=== PATIENT | male | born 1960 | race Caucasian/White ===

== ENCOUNTER 2020-07-16 18:16 | Emergency (ER) | payer MEDICAID, SELFPAY ==
[2020-07-16] VITALS (7 sets, daily range): BP systolic 158–184; BP diastolic 95–111; PULSE 60–73; RESP 16–18; TEMP 36.8; O2SAT 94–98; BMI 21.7
--- NOTE | 2020-07-16 18:18 | HMH.EDGENADL ---
ED Disposition Clinical Impression: Altered mental status Qualifiers: Altered mental status type: disorientation Qualified Code(s): R41.0 - Disorientation, unspecified Disposition: Still a Patient Condition on Discharge: Good Referrals: Caitlyn Perera MD [Primary Care Provider] - - Critical Care Critical Care Time: No Attestation: On , the high probability of a clinically significant, sudden or life threatening deterioration of the following system(s) required my full and direct attention, intervention and personal management. The time I documented below is in addition to time spent performing reported procedures but includes the following listed in this critical care notation. Medical Decision Making - Medical Records Medical records reviewed: Yes: I reviewed the patient's medical records. - Tigre Inquiry Pt receiving controlled substance: No Vital Signs: 07/16/20 18:25 07/16/20 18:31 Temperature 98.3 F Temperature Source Oral Pulse Rate [Radial] 73 70 Respiratory Rate 18 18 Blood Pressure [Right Arm] 174/102 H 158/95 H Blood Pressure Mean [Right Arm] 126 116 Blood Pressure Source [Right Arm] Automatic Cuff Blood Pressure Position [Right Arm] Sitting Sitting 02 Sat by Pulse Oximetry 98 94 L Oxygen Delivery Method Room Air - Lab Data Lab Results 07/16/20 18:34: WBC 10.4, RBC 4.98, Hgb 16.3, Hct 48.8, MCV 98.0 H, MCH 32.8 H, MCHC 33.5, RDW 13.9, Plt Count 243, MPV 7.5, Neut % (Auto) 61.9, Lymph % (Auto) 25.4, [place] % (Auto) 9.4 H, Eos % (Auto) 2.4, Baso % (Auto) 0.9, Neut # (Auto) 6.4, Lymph # (Auto) 2.6, [place] # (Auto) 1.0, Eos # (Auto) 0.2, Baso # (Auto) 0.1 07/16/20 18:37: Sodium 134 L, Potassium 3.7, Chloride 101, Carbon Dioxide 28, Anion Gap 8.7, BUN 16, Creatinine 1.10, Estimated Creat Clear 72, Estimated GFR 68, Est GFR ( Amer) 82, Glucose 116 H, Calcium 9.2, Total Bilirubin 0.4, AST 18, ALT 11 L, Alkaline Phosphatase 65, Troponin I < 0.01, Total Protein 7.2, Albumin 4.0, Globulin 3.2, Albumin/Globulin Ratio 1.3, Salicylates < 1.0 L, Acetaminophen < 10 L 07/16/20 18:37: Ammonia 27 07/16/20 18:37: Magnesium 2.0 Result diagrams: 07/16/20 18:34 07/16/20 18:37 Orders (Tests/Meds): ORDERS Category Date Time Status CT angio head Stat Cat Scan 07/16/20 19:[address] angio neck Stat Cat Scan 07/16/20 19:[address] head/brain wo con Stat Cat Scan 07/16/20 18:27 Taken Chest XR -- portable [XR chest portable] Stat Exams 07/16/20 18:36 Taken Drug Screen,Urine Stat Lab 07/16/20 18:35 Ordered Troponin I Q3H Lab 07/16/20 21:45 Ordered Troponin I Q3H Lab 07/17/20 00:45 Ordered Urinalysis and Microscopic Stat Lab 07/16/20 18:35 Ordered - ECG Data Tracing #1 I reviewed this ECG and interpreted as documented below: EKG demonstrates normal sinus rhythm at a normal rate; no acute ST elevation/depression Medical Decision Narrative: Patient presents to the emergency department with altered mental status over the past 6 days. He has no focal neurologic deficits, cranial nerve deficits, asymmetrical weakness, or other findings on examination. He is alert and oriented x3 but states he simply is just not been himself over the past several days. I am concerned for acidosis versus electrolyte disturbance versus infectious process versus atypical ischemia versus uremic encephalopathy versus hepatic encephalopathy versus acute intracranial abnormality versus Wernicke-Korsakoff syndrome. At this time, patient does have history of heavy alcohol abuse so an ammonia level will be obtained to ensure no hepatic encephalopathy. He has not had any alcohol in the past 5 or 6 days so if he were to have alcohol withdrawal you think it would have happened by now. CT scan will be obtained to ensure no acute intracranial abnormality., Again no focal neurologic deficits on exam. Other basic lab work we obtained to ensure no hematologic or metabolic derangement. Blood glucose 113 mg/dL. U
--- NOTE | 2020-07-16 18:27 | CT_ITS ---
PROCEDURE: CT HEAD/BRAIN WO CON CLINICAL INDICATION: altered mental status Altered mental status, altered level of consciousness, confusion, disorientation, memory loss COMPARISON: No exams were available for comparison TECHNIQUE: Axial images obtained. All CT scans at the facility use one or more dose reduction, viz: automated exposure control, ma/kV adjustment per patient size (including targeted exams where dose is matched to indication, i.e. head), or iterative reconstruction technique. FINDINGS: No midline shift, mass effect, intracranial hemorrhage, hydrocephalus, or extra-axial fluid collection is evident. There are scattered areas hypoattenuation of the periventricular white matter consistent with microangiopathic changes. Ill-defined decreased density is present in the genu of the left internal capsule and could be due to subacute lacunar infarction. Encephalomalacia changes present in the left parietal lobe. The calvarium has an unremarkable appearance. No mastoid effusion. Partial opacification noted of the ethmoid sinuses IMPRESSION: 1. No acute intracranial hemorrhage. 2. Possible subacute infarction left internal capsule with periventricular ischemic gliotic changes. MRI may provide further evaluation. 3. Sinus disease Dictated by: Missael Vidales MD 07/17/2020 10:00 Missael Vidales MD in [facility] 07/17/2020 10:00
--- NOTE | 2020-07-16 18:33 | ECG_ITS ---
APPROVED REPORT Exam: Resting ECG HR:71 bpm ECG Measurements Heart Rate 71 AXES NM 174 P 67 QRSd 96 QRS 37 QT 400 T 65 QTc 434 Conclusion Normal sinus rhythm Normal ECG Electronically signed by : Ugo Parry, 07/17/2020 06:36:05
--- NOTE | 2020-07-16 18:36 | XR_ITS ---
PROCEDURE: XR CHEST PORTABLE CLINICAL HISTORY: altered mental status Altered mental status, altered level of consciousness, confusion, disorientation COMPARISON: No exams were available for comparison FINDINGS: There is borderline cardiomegaly without failure. The lungs are clear without infiltrates, suspicious nodules, or pleural effusions. No acute bony abnormalities. IMPRESSION: No acute findings. Dictated by: Missael Vidales MD 07/17/2020 08:26 Missael Vidales MD in [facility] 07/17/2020 08:26
--- NOTE | 2020-07-16 18:39 | PC.NURSE ---
FSBS 113 mg/dl
[2020-07-16 18:42] LABS: Basophils # 0.1 K/mm3 (0-0.2); Basophils % 0.9 % (0.1-2.0); Eosinophils # 0.2 K/mm3 (0.0-0.4); Eosinophils % 2.4 % (0.1-12.0); Hematocrit 48.8 % (42.0-52.0); Hemoglobin 16.3 g/dL (14.1-18.0); Lymphocytes # 2.6 K/mm3 (0.7-4.5); Lymphocytes % 25.4 % (10-50); Mean Corpuscular HGB Conc 33.5 g/dL (31.8-35.4); Mean Corpuscular Hemoglobin 32.8 pg (27.0-31.2); Mean Platelet Volume 7.5 fl (7.4-10.4); Monocytes % 9.4 % (1.7-9.3); Neutrophils # 6.4 K/mm3 (1.8-7.8); Neutrophils % 61.9 % (37.0-80.0); Platelet Count 243 K/mm3 (142-424); Red Blood Count 4.98 M/mm3 (4.60-6.20); Red Cell Distribution Width 13.9 % (11.5-17.5); White Blood Count 10.4 K/mm3 (4.8-10.8)
[2020-07-16 19:06] LABS: Alanine Aminotransferase 11 U/L (12-78); Albumin/Globulin Ratio 1.3 (1.1-1.8); Alkaline Phosphatase 65 U/L (38-126); Anion Gap 8.7 mEq/L (5-15); Aspartate Amino Transferase 18 U/L (17-59); Bilirubin,Total 0.4 mg/dl (0.2-1.3); Blood Urea Nitrogen 16 mg/dl (9-20); Calcium 9.2 mg/dl (8.4-10.2); Carbon Dioxide 28 mmol/L (22.0-30.0); Chloride 101 mmol/L (98-107); Creatinine Clearance Estimated 72 mL/min (50-200); Estimated Glomerular Filt Rate 68 ml/min (>60); GFR (African American) 82 ML/MIN (>60); Globulin 3.2 g/dL (1.3-3.2); Glucose 116 mg/dl (74-100); Potassium 3.7 mmoL/L (3.5-5.1); Sodium 134 mmol/L (136-145); Total Protein,Serum 7.2 g/dl (6.3-8.2)
[2020-07-16 19:09] LABS: Acetaminophen < 10 ug/ml (10-30); Salicylate < 1.0 mg/dL (2.0-20.0)
[2020-07-16 19:10] LABS: Ammonia 27 umol/L (9-30)
[2020-07-16 19:21] LABS: Troponin I < 0.01 ng/ml (0.00-0.034)
--- NOTE | 2020-07-16 19:40 | PC.NURSE ---
on the phone with TANIA
--- NOTE | 2020-07-16 19:42 | CT_ITS ---
Procedure: CT ANGIO NECK CTA HEAD CLINICAL HISTORY: altered mental status Altered mental status, memory loss, cognitive decline, Altered mental status, altered level of consciousness, confusion, disorientation COMPARISON: CT CT ANGIO HEAD from 07/16/2020 TECHNIQUE: IV Contrast: 100ml Isovue 370 Axial images obtained with sagittal and coronal reformats. All CT scans at the facility use one or more dose reduction, viz: automated exposure control, ma/kV adjustment per patient size (including targeted exams where dose is matched to indication, i.e. head), or iterative reconstruction technique. FINDINGS: CTA neck: The the aortic arch and great vessels have an unremarkable appearance with no stenosis or occlusion. Right common carotid is unremarkable. There is some soft plaque present in the carotid bulb on the right with small amount of calcific plaque in the proximal right ICA without significant stenosis. Left common carotid is unremarkable. There is calcific plaque in the bulb on the left. There is occlusion of the left internal carotid artery 2 cm distal to the bifurcation. This occlusion extends to the clinoid portion of the left ICA with the ICA there is reconstituted.. There is some irregularity of the carotid bulb. There is 60-70 percent stenosis of the ostium of the right vertebral artery. The left vertebral artery has an unremarkable appearance. CTA head: There is complete occlusion of the left internal carotid artery beginning in the lower cervical portion. The internal carotid is occluded throughout the neck and skull base with reconstitution in the clinoid portion on the left. No aneurysm, AVM, or other occlusive changes are evident. No enhancing lesions are apparent. No obvious dural sinus thrombosis. IMPRESSION: 1. Occlusion of the left internal carotid artery extending throughout the neck and skull base with reconstitution at the ophthalmic portion of the left ICA. There is some irregularity the carotid bulb. The occlusion could be related to dissection. This however is uncertain. 2. No other significant anomalies appear. Dictated by: Missael Vidales MD 07/17/2020 10:29 Missael Vidales MD in [facility] 07/17/2020 10:29
--- NOTE | 2020-07-16 19:48 | PC.NURSE ---
called radiology and alerted to cta head and neck orders. requested disk of all scans at this time
--- NOTE | 2020-07-16 19:58 | PC.NURSE ---
pt to RAD for CTA
--- NOTE | 2020-07-16 20:20 | PC.NURSE ---
pt back from RAD
--- NOTE | 2020-07-16 20:26 | PC.NURSE ---
MD at bedside speaking with pt and family
--- NOTE | 2020-07-16 21:09 | PC.NURSE ---
speaking with Biju
--- NOTE | 2020-07-16 21:30 | PC.NURSE ---
speaking with [facility]
--- NOTE | 2020-07-16 21:43 | PC.NURSE ---
pt refuses ambulance transport.
[2020-07-18 05:35] LABS: POC Glucose,Bedside 113 (70-110)
== END 2020-07-16 21:59 | disposition short-term general hospital (02) ==
PROVIDERS: Emergency Provider Emergency Medicine; PCP Family Medicine
DX: I65.22 Occlusion and stenosis of left carotid artery (principal); F10.10 Alcohol abuse, uncomplicated; F17.210 Nicotine dependence, cigarettes, uncomplicated
CPT/HCPCS: 70450; 70496; 70498; 71045; 80053; 80329; 82140; 82962; 83735; 84484; 85025; 93005; 99284; Q9967

== ENCOUNTER 2023-05-28 09:49 | Emergency (ER) | payer OTHER, SELFPAY ==
[2023-05-28 10:30] VITALS: BP 154/85; PULSE 71; RESP 22; TEMP 36.7; O2SAT 97; BMI 26.4
--- NOTE | 2023-05-28 10:32 | EXP.UTC ---
Discharge Plan Disposition Patient Disposition: Home, Self-Care Condition: Good Prescriptions Prescriptions: New omeprazole 40 mg capsule,delayed release(DR/EC) 40 mg PO DAILY Qty: 30 2RF Referrals Follow up/Referrals: Caitlyn Perera MD [Primary Care Provider] - See instructions Vishal Chavez II, MD [Referring] - See instructions Activity Restrictions/Add. Instructions Additional Instructions/Restrictions: Drink plenty of fluids with your meals. Eat soft foods that are easier to swallow. I put in a referral to the GI specialist (Dr. Chavez). Please call his office and get an appointment to be evaluated there. Take the medications as directed. Follow up with your regular doctor. GO TO THE ER FOR ANY WORSENING SYMPTOMS Clinical Impressions Clinical Impression: Dysphagia Instructions Patient Instructions: Esophageal Dysphagia, Omeprazole, DI for Esophageal Dysphagia Discharge ED Provider: Vidal Oliveira [facility] General Stated complaint: something feels stuck when eating Time Seen by Provider: 05/28/23 10:32 History of Present Illness Provider Complaint: He states that over the past 1 month he has had trouble swallowing food at times. He states that it feels like it gets stuck right before it goes into his stomach. He denies that he is having these symptoms at this time. Related Data Previous Rx's Medication Instructions Recorded omeprazole 40 mg capsule,delayed 40 mg PO DAILY #30 caps 05/28/23 release Allergies Allergy/AdvReac Type Severity Reaction Status Date / Time No Known Allergies Allergy Verified 07/16/20 18:30 [facility] Disclaimer: The information contained in this section may have been updated after the patient was seen, as this information can be updated by other users. Medical History (Updated 05/28/23 @ 11:21 by Vidal Oliveira APRN) History of stroke Social History Smoking Status: Current every day smoker tobacco type: cigarettes packs per day: 1 second hand exposure: Yes alcohol intake: current current occupational status: employed Travel in the last 8 weeks: None ROS Obtained: Yes All systems reviewed & no additional complaints except as documented Constitutional Constitutional: Denies chills and Denies fever(s) Eyes Eyes: Denies eye discharge ENT Ears, Nose, Mouth, and Throat: Denies dizziness, Denies otalgia and Denies sore throat Cardiovascular Cardiovascular: Denies chest pain Respiratory Respiratory: Denies shortness of breath, Denies chest congestion, Denies cough, Denies stridor and Denies wheezing Gastrointestinal Gastrointestingal: Denies nausea or vomiting Musculoskeletal Musculoskeletal: Reports system reviewed and no additional complaints, except as documented and Denies arthralgias Integumentary/Breasts Skin/Breast: Denies rash Neurologic Neurologic: Denies dizziness and Denies paresthesias Allergic/Immunologic Allergic/Immunologic: Denies wheezing Physical Exam General General appearance: alert and in no apparent distress Head Head exam: atraumatic, normocephalic and normal inspection Eye Eye exam: Present normal appearance, PERRL and EOMI ENT ENT exam: Present normal exam, normal oropharynx, mucous membranes moist, TM's normal bilaterally and normal external ear exam Neck Neck exam: Present normal inspection, full ROM and trachea midline; Absent meningismus or lymphadenopathy Chest Chest inspection: Present normal inspection and symmetric chest wall rise; Absent tenderness Respiratory Respiratory exam: Present normal lung sounds bilaterally; Absent respiratory distress Cardiovascular Cardiovascular exam: Present regular rate and normal rhythm; Absent JVD Abdominal Exam Abdominal exam: Present soft and normal bowel sounds; Absent distention, tenderness or guarding Extremities Exam Extremities exam: Present normal inspection, full ROM and normal capillary refill; Absent calf tenderness Back Exam Back exam: Present n
[2023-05-28 11:22] VITALS: BP 154/85; PULSE 71; RESP 22; TEMP 36.7; O2SAT 97
== END 2023-05-28 11:25 | disposition home or self-care (01) ==
PROVIDERS: Emergency Provider Nurse Practitioner Family; PCP Family Medicine
DX: R13.14 Dysphagia, pharyngoesophageal phase (principal); F17.210 Nicotine dependence, cigarettes, uncomplicated; Z86.73 Personal history of transient ischemic attack (TIA), and cerebral infarction without residual deficits
CPT/HCPCS: 99204; 99212; G0463

== ENCOUNTER 2024-07-07 13:45 | Outpatient (CLI) | payer MEDICARE, OTHER, SELFPAY ==
[2024-07-07 13:35] LABS: Basophils # 0.1 K/mm3 (0-0.2); Basophils % 1.3 % (0.1-2.0); Eosinophils # 0.2 K/mm3 (0.0-0.4); Eosinophils % 2.5 % (0.1-12.0); Hematocrit 50.3 % (42.0-52.0); Hemoglobin 16.8 g/dL (14.1-18.0); Lymphocytes # 1.9 K/mm3 (0.7-4.5); Lymphocytes % 28.3 % (10-50); Mean Corpuscular HGB Conc 33.3 g/dL (31.8-35.4); Mean Corpuscular Hemoglobin 33.3 pg (27.0-31.2); Mean Platelet Volume 7.9 fl (7.4-10.4); Monocytes # 0.6 K/mm3 (0.1-1.0); Monocytes % 8.4 % (1.7-9.3); Neutrophils # 4.1 K/mm3 (1.8-7.8); Neutrophils % 59.6 % (37.0-80.0); Platelet Count 250 K/mm3 (142-424); Red Blood Count 5.03 M/mm3 (4.60-6.20); Red Cell Distribution Width 14.3 % (11.5-17.5); White Blood Count 6.8 K/mm3 (4.8-10.8)
[2024-07-07 14:10] LABS: Alanine Aminotransferase 17 U/L (12-78); Albumin Level 3.9 g/dl (3.5-5.0); Albumin/Globulin Ratio 1.4 (1.1-1.8); Alkaline Phosphatase 87 U/L (38-126); Anion Gap 9.6 mEq/L (5-15); Aspartate Amino Transferase 28 U/L (17-59); Bilirubin,Total 0.7 mg/dl (0.2-1.3); Blood Urea Nitrogen 12 mg/dl (9-20); Calcium 9.1 mg/dl (8.4-10.2); Carbon Dioxide 28 mmol/L (22.0-30.0); Chloride 104 mmol/L (98-107); Chol/HDL Ratio 4.8 (1-3.5); Cholesterol 260 mg/dl (140-200); Estimated Glomerular Filt Rate 85 ml/min (>60); GFR (African American) 102 ML/MIN (>60); Globulin 2.8 g/dL (1.3-3.2); Glucose 103 mg/dl (74-100); HDL Cholesterol 54 mg/dl (40-60); Potassium 4.6 mmoL/L (3.5-5.1); Sodium 137 mmol/L (136-145); Total Protein,Serum 6.7 g/dl (6.3-8.2); Triglycerides 81 mg/dl (30-150); VLDL Cholesterol 16 mg/dL (0-40)
[2024-07-07 14:22] LABS: Direct LDL Cholesterol 197.19 mg/dL (100-129)
[2024-07-07 14:30] LABS: 25-OH Vitamin D, Total 23.6 ng/mL (30-100)
[2024-07-07 14:40] LABS: Thyroid Stimulating Hormone 1.32 uIU/mL (0.465-4.68)
[2024-07-07 15:30] LABS: HIV (1&2) Antibody Rapid NONREACTIVE (NONREACTIVE)
[2024-07-07 15:49] LABS: Free T4 (Free Thyroxine) 1.07 ng/dl (0.78-2.19)
[2024-07-07 19:26] LABS: Hemoglobin A1C 5.2 % (4.0-6.0)
[2024-07-08 08:42] LABS: HCV Ab Non Reactive (Non Reactive)
== END 2024-07-07 23:59 | disposition home or self-care (01) ==
LOC: LAB.DROPOF 13:46
PROVIDERS: PCP Internal Medicine; Visit Provider Internal Medicine
DX: Z00.00 Encounter for general adult medical examination without abnormal findings (principal); E78.5 Hyperlipidemia, unspecified; I10 Essential (primary) hypertension; I63.239 Cerebral infarction due to unspecified occlusion or stenosis of unspecified carotid artery; I73.9 Peripheral vascular disease, unspecified; R13.10 Dysphagia, unspecified; F17.210 Nicotine dependence, cigarettes, uncomplicated; Z11.4 Encounter for screening for human immunodeficiency virus [HIV]; Z13.21 Encounter for screening for nutritional disorder; Z13.29 Encounter for screening for other suspected endocrine disorder; Z11.59 Encounter for screening for other viral diseases; Z13.1 Encounter for screening for diabetes mellitus
CPT/HCPCS: 80053; 80061; 82306; 83036; 84439; 84443; 85025; 86803; 87389

== ENCOUNTER 2024-07-15 12:43 | Outpatient (CLI) | payer MEDICARE, OTHER, SELFPAY ==
--- NOTE | 2024-07-15 12:51 | CA_ITS ---
FINAL REPORT CLINICAL HISTORY: History of CVA, smoker. Patient states [facility] told him several years ago he had blockages in his neck. COMPARISON: None FINDINGS: RIGHT CAROTID: CCA PSV -148 cm/sec ICA PSV -133 cm/sec ICA/CCA PSV ratio -1.5. Comments: Moderate to severe plaque disease is noted. LEFTCAROTID: CCA PSV -103. cm/sec There is echogenic material which fills the entire internal carotid artery on the left side, consistent with occlusion. Comments: Moderate to severe plaque disease is noted. Antegrade flow is seen within the vertebral arteries. IMPRESSION: The right internal carotid artery contains moderate to severe plaque disease, and based on the appearance, the degree of stenosis may be 50%. Echogenic material fills the entire internal carotid artery, if not a well established diagnosis, CTA could be considered to confirm. Reviewed, Interpreted and Dictated by Lilian Layton MD Transcribed by Lu Kimble Authenticated and [facility]
== END 2024-07-15 23:59 | disposition home or self-care (01) ==
LOC: RT 12:44
PROVIDERS: PCP Internal Medicine; Visit Provider Internal Medicine
DX: I65.21 Occlusion and stenosis of right carotid artery (principal); Z86.73 Personal history of transient ischemic attack (TIA), and cerebral infarction without residual deficits
CPT/HCPCS: 93880

== ENCOUNTER 2025-03-21 11:33 | Emergency (ER) | payer MEDICARE, OTHER, SELFPAY ==
[2025-03-21] VITALS (9 sets, daily range): BP systolic 98–125; BP diastolic 53–79; PULSE 48–79; RESP 19; TEMP 36.6; O2SAT 96–100; BMI 25.7
--- NOTE | 2025-03-21 11:37 | ED_ITS ---
Discharge Plan Disposition Patient Disposition: Home, Self-Care Condition: Good Prescriptions Prescriptions: No Action losartan 25 mg tablet 25 mg PO DAILY Qty: 90 2RF rosuvastatin 20 mg tablet 20 mg PO DAILY Qty: 90 3RF tadalafil [Cialis] 5 mg tablet 5 mg PO DAILY Qty: 90 3RF Referrals Follow up/Referrals: Lucho Montano DO [Primary Care Provider, Family Practice] - See instructions Activity Restrictions/Add. Instructions Additional Instructions/Restrictions: Follow-up with your oncologist as soon as possible Dr. Dudley for further evaluation of your metastatic cancer. Return to the emergency department for any new or worsening symptoms including worsening pain or vomiting. Clinical Impressions Clinical Impression: Abdominal pain Print Language Print Language: Luxembourgish Discharge ED Provider: Tamia Browne General Adult HPI General Chief complaint: PAIN Stated complaint: left side pain Time Seen by Provider: 03/21/25 11:37 History of Present Illness HPI narrative: Patient is a 64-year-old with past medical history significant for metastatic stomach cancer who follows with Dr. Dudley at [facility] diagnosed 2 years ago presents the emergency department with abdominal pain. Patient received 1 dose of IV chemotherapy followed by 2 weeks of oral chemotherapy 2 years ago however did not like the side effects of started taking cow wormer to treat his cancer instead. Patient notes that 6 months ago he had a spot on his kidney and liver that was being watched . Patient over the last week has had increased left upper abdominal pain worse whenever he lies on his left side. Patient notes increased weight gain. Denies nausea vomiting diarrhea shortness of breath or chest pain. Is a daily smoker and has a chronic cough but no hemoptysis and no worsening of his cough. Patient has never had a colonoscopy performed. Related Data Previous Rx's ?Medication ?Instructions ?Recorded losartan 25 mg tablet 25 mg PO DAILY #90 tabs 12/28 02/19 rosuvastatin 20 mg tablet 20 mg PO DAILY #90 tabs 12/28 02/19 tadalafil 5 mg tablet (Cialis) 5 mg PO DAILY #90 tabs 01/22/25 Allergies Allergy/AdvReac Type Severity Reaction Status Date / Time No Known Allergies Allergy Verified 01/22/25 14:48 [facility] Disclaimer: The information contained in this section may have been updated after the patient was seen, as this information can be updated by other users. Medical History Cancer of esophagus History of stroke Social History Smoking Status: Current every day smoker tobacco type: cigarettes packs per day: 1 second hand exposure: Yes alcohol intake: current alcohol intake frequency: 0-2 drinks per day substance use type: denies use current occupational status: retired Travel in the last 8 weeks?: None Have you lived/traveled outside [place] in past 30 days?: No Contact w/someone who lives/traveled outside US past 30 days?: No Exposure to someone with infectious disease in past 14 days?: No Do you have a fever (greater than 100.4 F or 38 C)?: No Have you tested positive for COVID-19?: No Exposed to someone with COVID-19 in past 14 days?: No Do you have a sore throat?: No Do you have a cough?: No Do you have any weakness?: No Do you have any diarrhea?: No Are you experiencing any unusual bleeding?: No Do you have any muscle aches/pain?: No Do you have any abdominal pain?: No Are you experiencing loss of taste or smell?: No Other Medical History Have you received the Flu Vaccine for this season: No Have you received the Pneumonia Vaccine: No ROS Obtained: Yes All systems reviewed & no additional complaints except as documented Physical Exam General General appearance: alert and in no apparent distress Head Head exam: atraumatic and normocephalic Eye Eye exam: Present normal appearance and PERRL ENT ENT exam: Present normal exam, normal oropharynx and mucous membranes moist Neck Neck exam: Present normal inspection Respiratory Respiratory exam: Present normal lung sounds bilaterally; Absent respiratory distress or wheezes Cardiovascular Cardiovascular exam: Present regular rate and normal rhythm Abdominal Exam Abdominal exam: Present soft and tenderness (Left upper quadrant); Absent distention or guarding Back Exam Back exam: Present normal inspection; Absent tenderness, CVA tenderness (R) or CVA tenderness (L) Neurological Exam Neurological exam: Present alert and oriented X3 Medical Decision Making Medical Records Screening: Per USPSTF and CDC recommendations, given the prevalence of disease in our region, it is our hospital?s policy to screen for HIV and viral Hepatitis for all patients aged 18 and over and those with ongoing risk factors. [place]re Inquiry Pt receiving controlled substance: No Vital Signs: 03/21/25 11:39 03/21/25 11:44 03/21/25 12:01 Temperature 97.8 F Temperature Source Oral Pulse Rate 79 54 L Pulse Rate [Left] 65 Respiratory Rate 19 Blood Pressure 125/68 113/53 L Blood Pressure [Right Arm] 125/68 Blood Pressure Mean [Right Arm] 87 Blood Pressure Source [Right Arm] Automatic Cuff Blood Pressure Position [Right Arm] Sitting 02 Sat by Pulse Oximetry 97 100 98 Oxygen Delivery Method Room Air Room Air 03/21/25 12:30 03/21/25 13:00 03/21/25 13:30 Temperature Temperature Source Pulse Rate 56 L 50 L Pulse Rate [Left] Respiratory Rate Blood Pressure 98/69 L 109/69 L 114/55 L Blood Pressure [Right Arm] Blood Pressure Mean [Right Arm] Blood Pressure Source [Right Arm] Blood Pressure Position [Right Arm] 02 Sat by Pulse Oximetry 97 99 99 Oxygen Delivery Method Room Air 03/21/25 14:00 03/21/25 14:30 03/21/25 15:18 Temperature 97.8 F Temperature Source Pulse Rate 49 L 48 L 78 Pulse Rate [Left] Respiratory Rate 19 Blood Pressure 108/64 L 109/67 L 108/79 L Blood Pressure [Right Arm] Blood Pressure Mean [Right Arm] Blood Pressure Source [Right Arm] Blood Pressure Position [Right Arm] 02 Sat by Pulse Oximetry 97 96 Oxygen Delivery Method Room Air Lab Data Lab Results 03/21/25 11:37: Urine Color Yellow, Urine Appearance Clear, Urine pH 8.5, Ur Specific [place] 1.020, Urine Protein Negative, Urine Glucose (UA) Negative, Urine Ketones Negative, Urine Blood Negative, Urine Nitrate Negative, Urine Bilirubin Negative, Urine Urobilinogen 0.2, Ur Leukocyte Esterase Negative 03/21/25 11:42: WBC 9.3, RBC 4.03 L, Hgb 13.1 L, Hct 39.1 L, MCV 97.0 H, MCH 32.5 H, MCHC 33.5, RDW 14.9, Plt Count 258, MPV 9.7, Neut % (Auto) 48.3, Lymph % (Auto) 36.5, [place] % (Auto) 11.6 H, Eos % (Auto) 2.4, Baso % (Auto) 0.9, Neut # (Auto) 4.5, Lymph # (Auto) 3.4, [place] # (Auto) 1.1 H, Eos # (Auto) 0.2, Baso # (Auto) 0.1, Sodium 139, Potassium 4.3, Chloride 109 H, Carbon Dioxide 28, Anion Gap 6.3, BUN 11, Creatinine 0.80, Estimated Creat Clear 89, Estimated GFR 97, Est GFR ( Amer) 117, Glucose 97, Calcium 8.7, Total Bilirubin 0.4, AST 27, ALT 15, Alkaline Phosphatase 81, Troponin I < 0.01, NT-Pro-B Natriuret Pep 790 H, Total Protein 6.9, Albumin 3.3 L, Globulin 3.6 H, Albumin/Globulin Ratio 0.9 L, Lipase 48 03/21/25 12:12: VBG Lactic Acid 1.2 03/21/25 11:42 03/21/25 11:42 Orders (Tests/Meds): ED MEDICATIONS Discontinued Medications Generic Name Dose Route Start Last Admin Trade Name Freq PRN Reason Stop Dose Admin Iopamidol 80 ml 03/21/25 12:48 03/21/25 12:49 Iopamidol-370 (76%);100ml Bottle IV 03/21/25 12:49 80 ml ONCE ONE Administration Sodium Chloride 10 ml 03/21/25 12:48 03/21/25 12:49 Sodium Chloride 0.9% 10ml Syr (Rad Only) IV 03/21/25 12:49 10 ml ONCE ONE Administration Sodium Chloride 50 ml 03/21/25 12:48 03/21/25 12:49 0.9 % Sodium Chloride 50 Ml Vial IV 03/21/25 12:49 50 ml ONCE ONE Administration ORDERS Category Date Time Status CT abdomen pelvis w con Stat Cat Scan 03/21/25 12:04 Completed CTA Chest [CT angio chest PE protocol] Stat Cat Scan 03/21/25 12:04 Completed Complete Blood Count Auto Diff Stat Lab 03/21/25 11:42 Completed Comprehensive Metabolic Panel Stat Lab 03/21/25 11:42 Completed Lactate Venous Stat Lab 03/21/25 12:12 Completed Lipase Stat Lab 03/21/25 11:42 Completed NT Pro Brain Natriuretic Pep. Stat Lab 03/21/25 11:42 Completed Troponin I Stat Lab 03/21/25 11:42 Completed UA/RFX Microscopic Stat Lab 03/21/25 11:37 Completed Medical Decision Narrative: In summary, this 64-year-old male presents to the emergency department today with abdominal pain. On initial evaluation patient is hemodynamically stable saturating appropriately on room air afebrile no acute distress. Differential diagnosis includes but is not limited to worsening malignancy, peptic ulcer disease, pancreatitis, leukemia lymphoma ACS, PE, pneumonia, urolithiasis, pyelonephritis. Based on these concerns, I ordered CBC CMP lipase troponin BNP UA CT PE CT abdomen pelvis with IV contrast, EKG. ECG personally interpreted demonstrates sinus bradycardia no ST elevation ST depression or T wave origins concerning for ischemia Patient offered pain control but denied at this time as patient has stable symptoms. Labs personally reviewed demonstrate hemoglobin of 13, normal creatinine normal white count, nonactionable UA CT imaging personally interpreted demonstrate free fluid within the abdomen, diffuse abdominal lymphadenopathy, no saddle PE. Radiology read concerning for diffuse metastatic disease. I discussed with patient that his free fluid is likely inflammation from worsening metastatic disease from his stomach cancer that is causing his pain. Discussed close follow-up with his oncologist Dr. Dudley. Patient tolerating p.o. at this time and pain well-controlled agreeable to discharge with outpatient follow-up with his oncologist. Recommended stopping self medicating with cow wormer . Critical Care Critical Care Time Critical Care Time: No
--- OUTSIDE RECORDS SUMMARY | 2025-03-21 11:40 | XMS_ITS | Clinical Summary ---
Author Organization [facility] Address [address] [place] [address] Care Team Providers Care Clinical Associate Name Role Phone DustyLucho draper Nathanael Primary Care Provider + Allergies No known active allergies Medications losartan (COZAAR) 25 MG tablet Take 1 tablet by mouth Daily. 08/16/2024 Active rosuvastatin (CRESTOR) 10 MG tablet Take 1 tablet by mouth Daily. 08/16/2024 Active Niacin (TRUE VITAMIN B3 PO) Take by mouth. Active Cholecalciferol 25 MCG (1000 UT) tablet Take 1 tablet by mouth Daily. Patient taking 2,000 a day Active folic acid (FOLVITE) 400 MCG tablet Take 1 tablet by mouth Daily. Active Active Problems Problem Noted Date Diagnosed Date Malignant neoplasm of lower third of esophagus 1 09/08/2022 Family History Medical History Relation Name Comments Coronary artery disease Father Pancreatic cancer Father Coronary artery disease Maternal Grandfather Breast cancer Mother Coronary artery disease Mother Heart attack Mother Hyperlipidemia Mother Hypertension Mother Relation Name Status Comments Father Maternal Grandfather Alive Mother Social History Tobacco Use Types Packs/Day Years Used Date Smoking Tobacco: Every Day Cigarettes 1 50.6 Started: 2024 Passive Smoke Exposure: Current Smokeless Tobacco: Never Tobacco Cessation:Ready to Q uit: No; Counseling Given: Yes Alcohol Use Standard Drinks/Week Comments Not Currently 0 (1 standard drink = 0.6 oz pur e alcohol) PHQ-2 Answer Date Recorded Retired PHQ-9: Brief Depression Severity Measure Score 0 08/12/2023 Sex and Gender Information Value Date Recorded Sex Assigned at Not on file Legal Sex Male 10:42 AM EST Gender Identity Not on file Sexual Orientation Not on file Last Filed Vital Signs Vital Sign Reading Time Taken Comments Blood Pressure 138/82 11/18/2024 12:52 PM EDT 13 8 Pulse 74 11/18/2024 12:52 PM EDT Temperature 36.6 C (97.9 F) 11/18/2024 12:52 PM EDT Respiratory Rate 18 08/21/2024 9:41 AM EST Oxygen Saturation 97% 11/18/2024 12:52 PM EDT Inhaled Oxygen Concentration - - Weight 89 kg (196 lb 4.8 oz) 11/18/2024 12:52 PM EDT Height 182.9 cm (6') 11/18/2024 12:52 PM EDT Body Mass Index 26.62 11/18/2024 12:52 PM EDT Plan of Treatment Upcoming Encounters Date Type Department Care Team (Late st Contact Info) Description 04/07/2025 11:00 AM EDT Appointment [facility] AT [address] [phone] 04/23/2025 10:00 AM EDT Office Visit [facility] HEMAT[facility] [address] [facility] [address] [place] [phone] Tim Dudley MD [address] [facility] [address] [place] [phone] 05/19/2025 10:00 AM EDT Appointment [facility] [address] [facility] [address] [place] [phone] 05/19/2025 12:00 PM EDT Office Visit [facility] [address] [facility] [address] [place] [phone] Haim Bingham MD [address] [facility] [address] [place] [address] Health Maintenance Due Date Last Done Comments Pneumococcal Vaccine 50+ (1 of 2 - PCV) 1977 TDAP/TD VACCINES (1 - Tdap) 1977 COLOGUARD 11/27/2003 COLON CANCER SCREENING 5 YEA R SIGMOIDOSCOPY 11/27/2003 COLONOSCOPY 11/27/2003 COLORECTAL CANCER SCREENING 11/27/2003 CT COLONOGRAPHY 11/27/2003 FECAL OCCULT BLOOD TEST 11/27/2003 FIT Testing (1 year) 11/27/2003 ZOSTER VACCINE (1 of 2) 2008 ANNUAL WELLNESS VISIT 07/03/2023 COVID-19 Vaccine ( - 2023- season) 2024 INFLUENZA VACCINE 04/28/2025 LUNG CANCER SCREENING 12/07/2025 12/07/2024 , 08/17/2024, 04/27/2024 HEPATITIS C SCREENING Completed 07/07/2024 AAA SCREEN ONCE Completed 12/07/2024, 07/30, 04/27/2024 Goals Goal Patient Goal Type Associated Problems Recent Progress Patient-Stated? Author Specialty Pharmacy General Goal General No Vilma Santamaria, [facility] Note: Clinical goal/therapeutic target: disease control, per the recent oncology clinic notes and labs. Procedures Procedure Name Priority Date/Time Associated Diagnosis Comments CT CHEST W CONTRAST Routine 12/07/2024 9 :34 AM EDT Malignant neoplasm of lower third of esophagus CT ABDOMEN PELVIS W CONTRAST Routine 12/07/2024 9:34 AM EDT Malignant neoplasm of lower third of esophagus from Last 3 Months or Most Recently Relevant to Health Maintenance Results * CT Abdomen Pelvis With Contrast (12/07/2024 9:34 AM EDT) Anatomical Region Laterality Modality Abdomen, Pelvis N/A Computed Tomogra phy 12/09/2024 11:4 9 AM EDT Impressions 12/09/2024 12:15 PM EDT Impression: Chest: No evidence of disease progression. Stable subcentimeter pulmonary nodules. Abdomen/pelvis: Increased retroperitoneal, portal and mesenteric adenopathy. No liver lesion. Stable bony findings. Electronically Signed: Mallory Faustin MD 12/09/2024 12:15 PM EDT Workstation ID: [id number] Narrative 12/09/2024 12:[address] ABDOMEN PELVIS W CONTRAST, CT CHEST W CONTRAST DIAGNOSTIC Date of Exam: 12/07/2024 9:06 AM EDT Indication: esophageal ca. Comparison: 08/17/2024. Technique: Axial CT images were obtained of the chest, abdomen and pelvis following the uneventful intravenous administration of 100 cc Isovue-300. Reconstructed coronal and sagittal images were also obtained. Automated exposure control and iterative construction methods were used. Findings: Chest: Thoracic aorta normal in caliber.. Heart is not enlarged. Coronary atherosclerotic calcifications. No pericardial effusion or pericardial thickening. Thyroid is unremarkable. No mediastinal, hilar or axillary adenopathy. No focal infiltrate or effusion in the lung donnelly. Unchanged right upper lobe pulmonary nodule series 4 image 31 measuring 7 mm and 6 mm nodule in the right lower lobe on image 56. No new or enlarging pulmonary nodules. Calcified granulomas. Central airways are patent. Abdomen/pelvis: Liver, spleen, pancreas, adrenal glands and kidneys are unremarkable without enhancing lesion. The gallbladder is present. No intra or extrahepatic biliary ductal dilatation. Scattered colonic diverticuli without evidence of diverticulitis, abscess bowel obstruction or appendicitis. Atherosclerotic calcifications of the abdominal aorta without aneurysmal dilatation. Diffuse haziness of the central mesenteric root with significant increased mesenteric adenopathy, innumerable nodules, measuring up to 12 mm short axis most of which have developed in the interim since the prior study. Para-aortic, precaval and portal adenopathy and upper abdominal lymph nodes have significantly increased; portal lymph nodes now measuring up to 17 mm short axis. For example, a left para-aortic lymph node at the level of the left renal hilum now measures 12 mm short axis, measured 6 mm in July. However, a lymph node of the infrarenal region on prior study which was referenced is smaller measuring 10 mm short axis, previously 17 mm short axis. With a few other previously seen lymph nodes that are smaller. Overall, adenopathy is increased. Redemonstrated enlarged prostate. Grossly unremarkable urinary bladder. No pelvic free fluid. Osseous structures: Unchanged sclerotic focus of the left glenoid, previously non-hypermetabolic on prior PET CTs. Unchanged sclerotic focus of the right pubic bone, not hypermetabolic on prior PET CTs, likely bone island. No acute osseous abnormality. No soft tissue abnormality. Procedure Note Mallory Faustin MD - 12/09/2024 CT ABDOMEN PELVIS W CONTRAST, CT CHEST W CONTRAST DIAGNOSTIC Date of Exam: 12/07/2024 9:06 AM EDT Indication: esophageal ca. Comparison: 08/17/2024. Technique: Axial CT images were obtained of the chest, abdomen and pelvisfollowing the uneventful intravenous administration of 100 cc Isovue-300.Reconstructed coronal and sagittal images were also obtained. Automatedexposure control and iterative construction methods were used. Findings: Chest: Thoracic aorta normal in caliber.. Heart is not enlarged. Coronaryatherosclerotic calcifications. No pericardial effusion or pericardialthickening. Thyroid is unremarkable. No mediastinal, hilar or axillaryadenopathy. No focal infiltrate or effusion in the lung donnelly. Unchanged right upperlobe pulmonary nodule series 4 image 31 measuring 7 mm and 6 mm nodule inthe right lower lobe on image 56. No new or enlarging pulmonary nodules.Calcified granulomas. Central airways are patent. Abdomen/pelvis: Liver, spleen, pancreas, adrenal glands and kidneys are unremarkablewithout enhancing lesion. The gallbladder is present. No intra orextrahepatic biliary ductal dilatation. Scattered colonic diverticuli without evidence of diverticulitis, abscessbowel obstruction or appendicitis. Atherosclerotic calcifications of the abdominal aorta without aneurysmaldilatation. Diffuse haziness of the central mesenteric root with significant increasedmesenteric adenopathy, innumerable nodules, measuring up to 12 mm shortaxis most of which have developed in the interim since the prior study. Para-aortic, precaval and portal adenopathy and upper abdominal lymphnodes have significantly increased; portal lymph nodes now measuring up to17 mm short axis. For example, a left para-aortic lymph node at the levelof the left renal hilum now measures 12 mm short axis, measured 6 mm in July. However, a lymph nodeof the infrarenal region on prior study which was referenced is smallermeasuring 10 mm short axis, previously 17 mm short axis. With a few otherpreviously seen lymph nodes that are smaller. Overall, adenopathy is increased. Redemonstrated enlarged prostate. Grossly unremarkable urinary bladder. Nopelvic free fluid. Osseous structures: Unchanged sclerotic focus of the left glenoid,previously non-hypermetabolic on prior PET CTs. Unchanged sclerotic focusof the right pubic bone, not hypermetabolic on prior PET CTs, likely boneisland. No acute osseous abnormality. No soft tissue abnormality. IMPRESSION: Impression: Chest: No evidence of disease progression. Stable subcentimeter pulmonarynodules. Abdomen/pelvis: Increased retroperitoneal, portal and mesentericadenopathy. No liver lesion. Stable bony findings. Electronically Signed: Mallory Faustin MD 12/09/2024 12:15 PM EDT Workstation ID: [id number] Tim Dudley MD IMG CT ORDERABLES Final Resu lt * CT Chest With Contrast Diagnostic (12/07/2024 9:34 AM EDT) Anatomical Region Laterality Modality Chest N/A Computed Tomogra phy 12/09/2024 11:4 9 AM EDT Impressions 12/09/2024 12:15 PM EDT Impression: Chest: No evidence of disease progression. Stable subcentimeter pulmonary nodules. Abdomen/pelvis: Increased retroperitoneal, portal and mesenteric adenopathy. No liver lesion. Stable bony findings. Electronically Signed: Mallory Faustin MD 12/09/2024 12:15 PM EDT Workstation ID: [id number] Narrative 12/09/2024 12:[address] ABDOMEN PELVIS W CONTRAST, CT CHEST W CONTRAST DIAGNOSTIC Date of Exam: 12/07/2024 9:06 AM EDT Indication: esophageal ca. Comparison: 08/17/2024. Technique: Axial CT images were obtained of the chest, abdomen and pelvis following the uneventful intravenous administration of 100 cc Isovue-300. Reconstructed coronal and sagittal images were also obtained. Automated exposure control and iterative construction methods were used. Findings: Chest: Thoracic aorta normal in caliber.. Heart is not enlarged. Coronary atherosclerotic calcifications. No pericardial effusion or pericardial thickening. Thyroid is unremarkable. No mediastinal, hilar or axillary adenopathy. No focal infiltrate or effusion in the lung donnelly. Unchanged right upper lobe pulmonary nodule series 4 image 31 measuring 7 mm and 6 mm nodule in the right lower lobe on image 56. No new or enlarging pulmonary nodules. Calcified granulomas. Central airways are patent. Abdomen/pelvis: Liver, spleen, pancreas, adrenal glands and kidneys are unremarkable without enhancing lesion. The gallbladder is present. No intra or extrahepatic biliary ductal dilatation. Scattered colonic diverticuli without evidence of diverticulitis, abscess bowel obstruction or appendicitis. Atherosclerotic calcifications of the abdominal aorta without aneurysmal dilatation. Diffuse haziness of the central mesenteric root with significant increased mesenteric adenopathy, innumerable nodules, measuring up to 12 mm short axis most of which have developed in the interim since the prior study. Para-aortic, precaval and portal adenopathy and upper abdominal lymph nodes have significantly increased; portal lymph nodes now measuring up to 17 mm short axis. For example, a left para-aortic lymph node at the level of the left renal hilum now measures 12 mm short axis, measured 6 mm in July. However, a lymph node of the infrarenal region on prior study which was referenced is smaller measuring 10 mm short axis, previously 17 mm short axis. With a few other previously seen lymph nodes that are smaller. Overall, adenopathy is increased. Redemonstrated enlarged prostate. Grossly unremarkable urinary bladder. No pelvic free fluid. Osseous structures: Unchanged sclerotic focus of the left glenoid, previously non-hypermetabolic on prior PET CTs. Unchanged sclerotic focus of the right pubic bone, not hypermetabolic on prior PET CTs, likely bone island. No acute osseous abnormality. No soft tissue abnormality. Procedure Note Mallory Faustin MD - 12/09/2024 CT ABDOMEN PELVIS W CONTRAST, CT CHEST W CONTRAST DIAGNOSTIC Date of Exam: 12/07/2024 9:06 AM EDT Indication: esophageal ca. Comparison: 08/17/2024. Technique: Axial CT images were obtained of the chest, abdomen and pelvisfollowing the uneventful intravenous administration of 100 cc Isovue-300.Reconstructed coronal and sagittal images were also obtained. Automatedexposure control and iterative construction methods were used. Findings: Chest: Thoracic aorta normal in caliber.. Heart is not enlarged. Coronaryatherosclerotic calcifications. No pericardial effusion or pericardialthickening. Thyroid is unremarkable. No mediastinal, hilar or axillaryadenopathy. No focal infiltrate or effusion in the lung donnelly. Unchanged right upperlobe pulmonary nodule series 4 image 31 measuring 7 mm and 6 mm nodule inthe right lower lobe on image 56. No new or enlarging pulmonary nodules.Calcified granulomas. Central airways are patent. Abdomen/pelvis: Liver, spleen, pancreas, adrenal glands and kidneys are unremarkablewithout enhancing lesion. The gallbladder is present. No intra orextrahepatic biliary ductal dilatation. Scattered colonic diverticuli without evidence of diverticulitis, abscessbowel obstruction or appendicitis. Atherosclerotic calcifications of the abdominal aorta without aneurysmaldilatation. Diffuse haziness of the central mesenteric root with significant increasedmesenteric adenopathy, innumerable nodules, measuring up to 12 mm shortaxis most of which have developed in the interim since the prior study. Para-aortic, precaval and portal adenopathy and upper abdominal lymphnodes have significantly increased; portal lymph nodes now measuring up to17 mm short axis. For example, a left para-aortic lymph node at the levelof the left renal hilum now measures 12 mm short axis, measured 6 mm in July. However, a lymph nodeof the infrarenal region on prior study which was referenced is smallermeasuring 10 mm short axis, previously 17 mm short axis. With a few otherpreviously seen lymph nodes that are smaller. Overall, adenopathy is increased. Redemonstrated enlarged prostate. Grossly unremarkable urinary bladder. Nopelvic free fluid. Osseous structures: Unchanged sclerotic focus of the left glenoid,previously non-hypermetabolic on prior PET CTs. Unchanged sclerotic focusof the right pubic bone, not hypermetabolic on prior PET CTs, likely boneisland. No acute osseous abnormality. No soft tissue abnormality. IMPRESSION: Impression: Chest: No evidence of disease progression. Stable subcentimeter pulmonarynodules. Abdomen/pelvis: Increased retroperitoneal, portal and mesentericadenopathy. No liver lesion. Stable bony findings. Electronically Signed: Mallory Faustin MD 12/09/2024 12:15 PM EDT Workstation ID: [id number] Tim Dudley MD IMG CT ORDERABLES Final Resu lt from Last 3 Months or Most Recently Relevant to Health Maintenance Insurance MEDICARE [employer] Care Teams Clinical Associate Relationship Specialty Start Date End Date Lucho Montano DO [address] [place] [address] PCP - General Internal Medicine 09/22/24
--- OUTSIDE RECORDS SUMMARY | 2025-03-21 11:40 | XMS_ITS | Encounter Summary ---
Author Organization [employer] ([place], [place], [place], [place]) Address [address] [place] [address] Care Team Providers Care Rug Renovator Name Role Phone Unavailable Primary Care Provider Unavailabl e Encounter Details Date Type Department Care Team (Late st Contact Info) Description 07/25/2020 Transcribed Document [facility] Family Medicine [address] [place] [address] ProviderNolan MD [address] [place], [place] [id number] Social History Tobacco Use Types Packs/Day Years Used Date Smoking Tobacco: Never Assessed Sex and Gender Information Value Date Recorded Sex Assigned at Not on file Legal Sex Male 7:15 PM CDT Gender Identity Not on file Sexual Orientation Not on file documented as of this encounter Miscellaneous Notes * [employer]ner Conversion Note - Historical ProviderMD - 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 Conversion Sap Mobility Architect Cerner at 11/12/2022 2:50 PM CDT documented in this encounter Plan of Treatment Not on file documented as of this encounter Visit Diagnoses Not on filedocumented in this encounter
--- OUTSIDE RECORDS SUMMARY | 2025-03-21 11:40 | XMS_ITS | Encounter Summary ---
Author Organization [employer] ([place], [place], [place], [place]) Address [address] [place] [address] Care Team Providers Care [facility] Owner Name Role Phone Unavailable Primary Care Provider Unavailabl e Encounter Details Date Type Department Care Team (Late st Contact Info) Description 07/25/2020 Transcribed Document [facility] Family Medicine [address] [place] [address] ProviderNolan MD [address] [place], [place] [phone] Social History Tobacco Use Types Packs/Day Years Used Date Smoking Tobacco: Never Assessed Sex and Gender Information Value Date Recorded Sex Assigned at Not on file Legal Sex Male 7:15 PM CDT Gender Identity Not on file Sexual Orientation Not on file documented as of this encounter Miscellaneous Notes * [employer]ner Conversion Note - Historical ProviderMD - 07/25/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 ED Discharge Entered On: 07/25/2020 22:39 EST Performed On: 07/25/2020 22:39 EST by Dana Jolley Chair Car Driver Process Patient Disposition : Admit/Observe Personal Belongings With Patient : Yes Patient Education Completed : Yes Teaching Evaluation : Verbalizes understanding IV Discontinued : No Nursing Documentation Completed : Yes Dana Jolley Rn - 07/25/2020 22:39 EST Admission, ED Nurse Report Accepted By : [id number] Rn `Nurse Report (Hand Off) : Called Mode Of Departure : Dana Betts Rn - 07/25/2020 22:39 EST documented in this encounter Plan of Treatment Not on file documented as of this encounter Visit Diagnoses Not on filedocumented in this encounter
--- OUTSIDE RECORDS SUMMARY | 2025-03-21 11:40 | XMS_ITS | Encounter Summary ---
Author Organization [employer] ([place], [place], [place], [place]) Address [address] [place] [address] Care Team Providers Care Vault Cashier Name Role Phone Unavailable Primary Care Provider Unavailabl e Encounter Details Date Type Department Care Team (Late st Contact Info) Description 07/25/2020 Transcribed Document [facility] [place] [address] [place] [address] ProviderNolan MD [address] [place], [place] [phone] Social History Tobacco Use Types Packs/Day Years Used Date Smoking Tobacco: Never Assessed Sex and Gender Information Value Date Recorded Sex Assigned at Not on file Legal Sex Male 7:15 PM CDT Gender Identity Not on file Sexual Orientation Not on file documented as of this encounter Miscellaneous Notes * [employer] Conversion Note - Historical ProviderMD - 07/25/2020 10:41 PM OTOLARYNGOLOGIST Meds to Bed Enrollment Entered On: 07/26/2020 7:40 EST Performed On: 07/25/2020 22:41 EST by Jaswinder Barger PAINTER DRUM LEAD Meds to Bed Enrollment Patient Enrollment Decision: : Yes/enroll in meds to bed program Jaswinder Barger PAINTER DRUM LEAD - 07/26/2020 7:40 EST documented in this encounter Plan of Treatment Not on file documented as of this encounter Visit Diagnoses Not on filedocumented in this encounter
--- OUTSIDE RECORDS SUMMARY | 2025-03-21 11:40 | XMS_ITS | Encounter Summary ---
Author Organization [employer] ([place], [place], [place], [place]) Address [address] [place] [address] Care Team Providers Care Automotive Generator Repairer Name Role Phone Unavailable Primary Care Provider Unavailabl e Encounter Details Date Type Department Care Team (Late st Contact Info) Description 07/27/2020 Transcribed Document [facility] [place] [address] [place] [address] ProviderNolan MD [address] [place] [address] Social History Tobacco Use Types Packs/Day Years Used Date Smoking Tobacco: Never Assessed Sex and Gender Information Value Date Recorded Sex Assigned at Not on file Legal Sex Male 7:15 PM CDT Gender Identity Not on file Sexual Orientation Not on file documented as of this encounter Miscellaneous Notes * Cerner Conversion Note - Nolan Reardon MD - 07/27/2020 8:54 PM TIRE BUILDER Patient: JAMES LEBRON Age: 59 Years Sex: Male : 1960 Subjective Patient states that he still has word finding difficulty. We were able to obtain the report of CTA of head and neck done at [facility] ( see report below ) . We were unable to get records from or document if any echocardiogram was done prior to this hospital stay. Therefore, an echocardiogram has been performed here. Review of Systems Cardiac - heart monitor shows that his hear rate often is in the 40s. Objective Vitals & Measurements T: 36.9 ??C TMIN: 36.6 ??C TMAX: 36.9 ??C HR: 45(Monitored) RR: 16 BP: 122/68 SpO2: 98% Physical Exam EOMI Speech - follows commands but makes frequent word substitutions. TESTS CTA of head and neck ( done on July 16 at [facility] ) : a) Complete occlusion of the left ICA beginning 2 cm distal to the bifurcation and extends to the clinoid portion of the ICA. b) 60 - 70% stenosis of the ostium of the right vertebral artery. Echocardiogram ( done here ) - a) EF of 55 % b) Negative bubble study. COVID test - negative. Assessment/Plan James Lebron is a 59-year-old male who by report around July 16 developed problems speaking. He was found to have a stroke at [facility], but he declined treatment and/or workup apparently. A CTA of head and neck done on July 16 shows an occluded left ICA with a 60 -70% stenosis at the origin of the right vertebral artery. An MRI of the brain here does confirm a left hemisphere stroke that could be consistent with left carotid artery disease. He is bradycardic here with a heart rate frequently in the 40s. At this time, I would recommend the followin. I agree with anti-platelet agents. 2. I agree with a statin and we could even consider high-dose statins. 3. Cardiology consult for bradycardia. 4. Sequential compression devices for deep vein thrombosis prevention. 5. I have initiated the stroke order sets. 6. At discharge, he should follow up with an outpatient neurologist and not drive until released by physician. 7. If his heart monitor were to show atrial fibrillation, we should consider anticoagulating the patient. I agree with Vascular surgery consult. Will follow. Medications Inpatient aspirin, 81 mg= 1 Tab, Oral, Daily Dulcolax Laxative, 5 mg= 1 Tab, Oral, Daily, PRN DuoNeb 0.5 mg-2.5 mg/3 mL inhalation solution, 3 mL, Nebulized Inhalation , RT_Q6H, PRN Habitrol 14 mg/24 hr transdermal film, extended release, 1 Patch, TransDermal, Daily hydrALAZINE, 10 mg= 0.5 mL, IV Push, Q6H, PRN Lipitor, 40 mg= 1 Tab, Oral, At Bedtime melatonin, 3 mg= 1 Tab, Oral, At Bedtime, PRN MiraLax, 17 Gram= 1 Packet, Oral, Daily, PRN Pepcid, 20 mg= 1 Tab, Oral, Q12H Plavix, 75 mg= 1 Tab, Oral, Daily Tylenol, 650 mg= 2 Tab, Oral, Q4H, PRN Tylenol, 650 mg= 2 Tab, Oral, Q4H, PRN Zofran, 4 mg= 2 mL, IV Push, Q4H, PRN Electronically signed by Tereso, [facility] Conversion Director Search Cerner at 11/12/2022 2:40 PM CDT documented in this encounter Plan of Treatment Not on file documented as of this encounter Visit Diagnoses Not on filedocumented in this encounter
--- OUTSIDE RECORDS SUMMARY | 2025-03-21 11:40 | XMS_ITS | Encounter Summary ---
Author Organization [employer] ([place], [place], [place], [place]) Address [address] [place] [address] Care Team Providers Care Kindergarten Assistant Name Role Phone Unavailable Primary Care Provider Unavailabl e Encounter Details Date Type Department Care Team (Late st Contact Info) Description 07/25/[address] [facility] [place] [address] [place] [address] ProviderNolan MD [address] [place] [address] Social History Tobacco Use Types Packs/Day Years Used Date Smoking Tobacco: Never Assessed Sex and Gender Information Value Date Recorded Sex Assigned at Not on file Legal Sex Male 7:15 PM CDT Gender Identity Not on file Sexual Orientation Not on file documented as of this encounter Miscellaneous Notes * Cerner Conversion Note - Nolan ProviderMD - 07/25/2020 11:51 AM OPHTHALMIC ASSISTANT ED Triage Entered On: 07/25/2020 12:09 EST Performed On: 07/25/2020 12:02 EST by Mahnaz Pittman RN ED Triage Across the Room Chief Complaint : Pt seen at [facility] 07/16 for CVA/slurred speech. Advised has 100% blockage to L carotid. Left AMA from [facility] on 07/17. Dtr states has been sleeping more since 07/11, has increased confusion when waking. Started ASA, plavix, atorvastatin @ [facility]. Triage Date/Time : 07/25/2020 12:02 EST Mahnaz Pittman RN - 07/25/2020 12:02 EST DCP GENERIC CODE Tracking Acuity : 2 - Emergent Tracking Group : [facility] ED Mahnaz Pittman RN - 07/25/2020 12:02 EST Mode of Arrival : Ambulatory Transported to ED by : Private vehicle To Room Via : Ambulate Accompanied By : Daughter ED Vital Signs : Document Height & Weight : Document ED Allergies : Document ED Reason for Visit : Document Mahnaz Pittman RN - 07/25/2020 12:02 EST Infectious Disease History Has the patient ever been tested for COVID-19? : Yes, Patient stated results Negative Date of COVID-19 test known? : No Does patient have symptoms of COVID-19? : No COVID19 Screening : No Experiencing Infectious Disease Symptoms : No symptoms Physical contact outside [place] in the last 30 days : No Infectious Disease History : Chicken pox/Shingles, Measles, Mumps Tuberculosis Symptoms : None Mahnaz Pittman RN - 07/25/2020 12:02 EST Vital Signs ED Temperature Source : Oral Temperature Mode : Fahrenheit Temperature, Fahrenheit : 98.4 Deg F ED Pain : No Clinical Temperature, C : 36.9 Deg C Oxygen Therapy Mode : Room air Peripheral Pulse Rate : 64 bpm Respiratory Rate : 16 Breaths/Min Systolic Blood Pressure : 155 mmHg (HI) Diastolic Blood Pressure : 90 mmHg Oxygen Saturation : 99 % Mahnaz Pittman RN - 07/25/2020 12:02 EST Allergy (As Of: 07/25/2020 12:09:16 EST) Allergies (Active) No Known Allergies Estimated Onset Date: Unspecified ; Created By: Mahnaz Pittman RN; Reaction Status: Active ; Category: Drug ; Substance: No Known Allergies ; Type: Allergy ; Updated By: Mahnaz Pittman RN; Reviewed Date: 07/25/2020 12:05 EST Diagnosis Control ED (As Of: 07/25/2020 12:09:16 EST) Diagnoses(Active) Altered mental status Date: 07/25/2020 ; Diagnosis Type: Reason For Visit ; Confirmation: Complaint of ; Clinical Dx: Altered mental status ; Classification: Medical ; Clinical Service: Non-Specified ; Code: PNED ; Probability: 0 ; Diagnosis Code: [id number] ED Height and Weight Height Source : Stated Height Entry Format : [place] Height, Feet : 6 ft(Converted to: 183 cm, 72 Inch) Height, Inches : 0 Inch(Converted to: 0 ft 0 Inch, 0.00 cm) Clinical Height : 182.88 cm Weight Source, ED : Standing scale Weight Entry Format : [place] Weight, Pounds : 189.1 lb Clinical Dosing Weight : 85.95 kg Body Surface Area (BSA) : 2.08 m2 Body Mass Index : 25.7 kg/m2 (HI) [place] Body Weight (IBW) : 76.59 kg Mahnaz Pittman RN - 07/25/2020 12:02 EST documented in this encounter Plan of Treatment Not on file documented as of this encounter Visit Diagnoses Not on filedocumented in this encounter
--- OUTSIDE RECORDS SUMMARY | 2025-03-21 11:40 | XMS_ITS ---
Author Organization [facility] Address [address] [id number] Care Team Providers Care Charger Tester Name Role Phone Lucho Montano DO Primary Care Provider + Active Problems Problem Noted Date Diagnosed Date Malignant neoplasm of lower third of esophagus 1 09/08/2022 Current Treatment and Therapy Plans OP GE Capecitabine / OXALiplatin / Nivolumab* Plan Start Date:08/12/2023 Plan Provider:Tim Dudley MD Linked Problems Malignant neoplasm of lower third of esophagus Treatment Medications Current Day (Day 1 , Cycle 3 - Planned for 09/30/2023) Next Day (Day 1, Cycle 4 - Planned for 10/21/2023) capecitabine (XELODA)nivolum ab (OPDIVO) chemo IVPB solutionOXALIplatin (ELOXATIN) chemo IVPB nivolumab (OPDIVO) 360 mg in sodium chloride 0.9 % 136 mL chemo IVPBOXALIplatin (ELOXATIN) 270 mg in dextrose (D5W) 5 % 304 mL chemo IVPB NIVOLUMAB CHEMO IVPBOXALIPLATIN CHEMO IVPB Past Treatment and Therapy Plans No past plan information found.
--- OUTSIDE RECORDS SUMMARY | 2025-03-21 11:40 | XMS_ITS | Encounter Summary ---
Author Organization [employer] ([place], [place], [place], [place]) Address [address] [place] [address] Care Team Providers Care Service Station Equipment Mechanic Name Role Phone Unavailable Primary Care Provider Unavailabl e Encounter Details Date Type Department Care Team (Late st Contact Info) Description 07/27/[address] [facility] [place] Family Medicine [address] [place] [address] ProviderNolan MD [address] [place] [address] Social History Tobacco Use Types Packs/Day Years Used Date Smoking Tobacco: Never Assessed Sex and Gender Information Value Date Recorded Sex Assigned at Not on file Legal Sex Male 7:15 PM CDT Gender Identity Not on file Sexual Orientation Not on file documented as of this encounter Miscellaneous Notes * Cerner Conversion Note - Historical ProviderMD - 07/27/2020 3:44 PM SHIPWRIGHT HELPER Patient: JAMES LEBRON Age: 59 Years Sex: Male : 1960 Subjective Date of Service: 07/27/2020 seen and examined very eager to discharge BP improved Vital Signs T: 36.6 ??C TMIN: 36.3 ??C TMAX: 36.7 ??C HR: 61(Monitored) RR: 18 BP: 123/74 SpO2: 95% Oxygen Settings (Last) Oxygen Therapy Mode: Room air (07/27/20 05:30:00) Intake & Output Totals Last 24 Hours (7a-7a) Input Total: 840 mL Output Total: 0 mL Balance: 840 mL Physical Exam General: Alert and oriented x 3, some aphasia, ambulatory in room, no acute distress Neurologic: Moves all 4 extremities spontaneously, oriented X3, no focal deficits appreciated, does seem to lose track of his answers, aphasia. Eye: normal conjunctiva HENT: Normocephalic, normal hearing, moist oral mucosa Neck: no jvd Lungs: Clear to auscultation, non-labored respiration, no crackles, no wheeze Heart: Normal rate, regular rhythm, no murmur Abdomen: Soft, non-tender, non-distended, normal bowel sounds Musculoskeletal: No obvious deformity, no tenderness Skin: warm, dry and pink, no rashes or lesions Psychiatric: Cooperative Assessment/Plan CVA, Left Cerebral hemisphere -got records from [facility] -MRI noted -reported 100% left carotid occlusion per report-await records. -neuro consult: discussed with Dr. Rhodes. -continue asa, Plavix and statin -A1C (6), lipid (low HLD) panel, TSH WNL -monitor on tele: sinus bradycardia, asymptomatic L internal carotid artery occlusion -VS consult Labile BP, improving -Treat PRN -trend Ectasia of aorta with plaque -needs PCP follow up Tobacco use -Encourage cessation -nicotine patch prn Alcohol use -says hasn't drank in 3 weeks -monitor for signs of withdrawal, CIWA moderate pcm -hothouse worker consult time spent: 24 mins covid intake neg Dispo: obtain records, neuro recs. discussed w daughter via phone. VTE Prophylaxis - Medical Clopidogrel 75 mg, Oral, Tab, Daily, Routine, Start 07/26/20 9:00:00 EST, 07/26/20 8:15:00 EST (DELON BAZZI PA-C) Sequential Compression Device Start: 07/26/20 13:43:00 EST, Bilateral, Continuous Order (ENOC RHODES) Medications aspirin, 81 mg= 1 Tab, Oral, Daily [...] mg= 2 mL, IV Push, Q4H, PRN Diagnostic Results Radiology Results (Last 48 hours) [id number] -- 07/27/2020 10:41 MRI Brain WO (07/26/2020 10:21) Result: MRI BRAINHISTORY: Slurred speech.PROCEDURE: Multiplanar MR imaging of the brain was performed in multiple MR sequences .FINDINGS: Limited images of the proximal cord are unremarkable. The ventricles are normal in size. There is no extra-axial fluid or midline shift. There is no evidence of acute hemorrhage. Flow-voids are appropriate. There are multiple foci of abnormal signal in the deep white matter of the left hemisphere with abnormal restricted diffusion and corresponding decreased signal on ADC map images. Findings are consistent with acute ischemia. There are small, nonspecific deep white matter changes in the right hemisphere. Limited images of the paranasal sinuses are unremarkable. IMPRESSION: Multiple areas of acute ischemia in the left cerebral hemisphere. Lab Results Test Name Test Result Date/Time PTT 27.5 Second(s) 07/27/2020 06:42 EST documented in this encounter Plan of Treatment Not on file documented as of this encounter Visit Diagnoses Not on filedocumented in this encounter
--- OUTSIDE RECORDS SUMMARY | 2025-03-21 11:40 | XMS_ITS | Encounter Summary ---
Author Organization [employer] ([place], [place], [place], [place]) Address [address] [place] [address] Care Team Providers Care Inspector Welded Parts Name Role Phone Unavailable Primary Care Provider Unavailabl e Encounter Details Date Type Department Care Team (Late st Contact Info) Description 07/25/2020 Transcribed Document [facility] [place] [address] [place] [address] ProviderNolan MD [address] [place], [place] [id number] Social History Tobacco Use Types Packs/Day Years Used Date Smoking Tobacco: Never Assessed Sex and Gender Information Value Date Recorded Sex Assigned at Not on file Legal Sex Male 7:15 PM CDT Gender Identity Not on file Sexual Orientation Not on file documented as of this encounter Miscellaneous Notes * Cerner Conversion Note - Historical ProviderMD - 07/25/2020 10:04 PM INSPECTOR WATCH ASSEMBLY ED Event Note Entered On: 07/25/2020 22:04 EST Performed On: 07/25/2020 22:04 EST by DESIRE SILVESTRE RN ED Event Note ED Event Date/Time : 07/25/2020 22:04 EST ED Event Location : Assigned room ED Event Details : Nursing assessment additional narrative ED Description of Event : report given to andrew RN. no questions. DESIRE SILVESTRE RN - 07/25/2020 22:04 EST documented in this encounter Plan of Treatment Not on file documented as of this encounter Visit Diagnoses Not on filedocumented in this encounter
--- OUTSIDE RECORDS SUMMARY | 2025-03-21 11:40 | XMS_ITS | Encounter Summary ---
Author Organization [employer] ([place], [place], [place], [place]) Address [address] [place] [address] Care Team Providers Care Criminal Records Technician Name Role Phone Unavailable Primary Care Provider Unavailabl e Encounter Details Date Type Department Care Team (Late st Contact Info) Description 07/28/2020 Transcribed Document [facility] [place] [address] [place] [address] ProviderNolan MD [address] [place], [place] [id number] Social History Tobacco Use Types Packs/Day Years Used Date Smoking Tobacco: Never Assessed Sex and Gender Information Value Date Recorded Sex Assigned at Not on file Legal Sex Male 7:15 PM CDT Gender Identity Not on file Sexual Orientation Not on file documented as of this encounter Miscellaneous Notes * Cerner Conversion Note - Nolan ProviderMD - 07/28/2020 12:33 PM LAUNDROMAT MANAGER Patient: JAMES LEBRON Age: 59 Years Sex: Male : 1960 Subjective Patient resting comfortably in bed. Still has some word finding difficulty . I appreciate Dr. Moreno's consult for asymptomatic bradycardia. He recommends avoidance of AV [place] agents. I appreciate Dr. Wright's consult for Left Carotid Occlusion . He recommends follow up in his office. Review of Systems Cardiac - denies any chest pain. Objective Vitals & Measurements T: 36.7 ??C TMIN: 36.6 ??C TMAX: 36.9 ??C HR: 43(Monitored) RR: 17 BP: 111/64 SpO2: 99% Physical Exam EOMI Motor - no drift . Speech - mild word finding difficulty . Assessment/Plan James Lebron is a 59-year-old male who by report around July 16 developed problems speaking. He was found to have a stroke at [facility], but he declined treatment and/or workup apparently. A CTA of head and neck done on July 16 shows an occluded left ICA with a 60 -70% stenosis at the origin of the right vertebral artery. An MRI of the brain here does confirm a scattered punctate areas of acute ischemia in the left hemisphere that could be consistent with left carotid artery disease. He is bradycardic here with a heart rate frequently in the 40s. At this time, I would recommend the followin. I agree with anti-platelet agents. 2. I agree with a statin . 3. Follow up with vascular surgery as an outpatient . 4. Sequential compression devices for deep vein thrombosis prevention. 5. I have initiated the stroke order sets. 6. At discharge, he should follow up with an outpatient neurologist and not drive until released by physician. The patient expressed understanding of no driving. I have explained to patient that statins have potential side effects of muscle weakness and liver damage . The patient wishes to continue taking statin. With patient's permission , I called daughter up and gave her an update and told her of my recommendations. I have spent over 35 minutes on this case today . Over half that time was spent counseling patient and his daughter. I am OK with patient going home. Medications Inpatient aspirin, 81 mg= 1 Tab, [...] IV Push, Q4H, PRN Electronically signed by Tereso [facility] Conversion Assistant Farm Operations Manager Cerner at 11/12/2022 2:39 PM CDT documented in this encounter Plan of Treatment Not on file documented as of this encounter Visit Diagnoses Not on filedocumented in this encounter
--- OUTSIDE RECORDS SUMMARY | 2025-03-21 11:40 | XMS_ITS | Encounter Summary ---
Author Organization [employer] ([place], [place], [place], [place]) Address [address] [place] [address] Care Team Providers Care Dental Equipment Installer And Servicer Name Role Phone Unavailable Primary Care Provider Unavailabl e Encounter Details Date Type Department Care Team (Late st Contact Info) Description 07/27/2020 Transcribed Document [facility] [place] Family Medicine [address] [place] [address] ProviderNolan MD [address] [place] [address] Social History Tobacco Use Types Packs/Day Years Used Date Smoking Tobacco: Never Assessed Sex and Gender Information Value Date Recorded Sex Assigned at Not on file Legal Sex Male 7:15 PM CDT Gender Identity Not on file Sexual Orientation Not on file documented as of this encounter Miscellaneous Notes * Cerner Conversion Note - Historical ProviderMD - 07/27/2020 10:48 AM STRIPPING MACHINE OPERATOR UM Authorization Entered On: 07/27/2020 10:48 EST Performed On: 07/27/2020 10:48 EST by ROXY SERRANO RN-Utilization Review Primary Insurance Authorization Authorization and Policy Numbers : Insurance 1 Health Plan: [place] Policy Number: [id number] Authorization Number: Insurance Primary Name : [place] Policy Number: [id number] Authorization Status-Primary : No precert required Reference Number-Primary : COVID-19 crisis Authorized Service Begin Date-Primary : 07/25/2020 EST Authorization Comments-Primary : call to Martha/[place] Medicaid to start IP authBERHANE is temporarily suspending prior auths due to COVID-19 pandemic Historical Authorization Comments-Primary : No Authorization Comments Found ROXY SERRANO, RN-Utilization Review - 07/27/2020 10:48 EST documented in this encounter Plan of Treatment Not on file documented as of this encounter Visit Diagnoses Not on filedocumented in this encounter
--- OUTSIDE RECORDS SUMMARY | 2025-03-21 11:40 | XMS_ITS | Encounter Summary ---
Author Organization [employer] ([place], [place], [place], [place]) Address [address] [place] [address] Care Team Providers Care Director Of Environmental Services Name Role Phone Unavailable Primary Care Provider Unavailabl e Encounter Details Date Type Department Care Team (Late st Contact Info) Description 07/27/2020 Transcribed Document [facility] [place] Family Medicine [address] [place] [address] ProviderNolan MD [address] [place], [place] [phone] Social History Tobacco Use Types Packs/Day Years Used Date Smoking Tobacco: Never Assessed Sex and Gender Information Value Date Recorded Sex Assigned at Not on file Legal Sex Male 7:15 PM CDT Gender Identity Not on file Sexual Orientation Not on file documented as of this encounter Miscellaneous Notes * Cerner Conversion Note - Historical ProviderMD - 07/27/2020 11:25 AM PECAN HULLER Discharge Summary, PT Entered On: 07/27/2020 16:41 EST Performed On: 07/27/2020 11:25 EST by SAGE SEPULVEDA PT Discharge Summary Discharge Summary Provider Notified : Nursing, Physical Therapy, Other: patient Discharge Summary Comment, PT : no skilled PTx needs identified at time of eval would be good candidate for OUT Pt SPEECH THERAPY SAGE SEPULVEDA, PT - 07/27/2020 16:40 EST Electronically signed by [facility] Conversion Verification Manager Cerner at 11/12/2022 2:38 PM CDT documented in this encounter Plan of Treatment Not on file documented as of this encounter Visit Diagnoses Not on filedocumented in this encounter
--- OUTSIDE RECORDS SUMMARY | 2025-03-21 11:40 | XMS_ITS | Encounter Summary ---
Author Organization [employer] ([place], [place], [place], [place]) Address [address] [place] [address] Care Team Providers Care Semiconductor Engineer Name Role Phone Unavailable Primary Care Provider Unavailabl e Encounter Details Date Type Department Care Team (Late st Contact Info) Description 07/25/2020 Transcribed Document [facility] [place] [address] [place] [address] ProviderNolan MD [address] [place], [place] [phone] Social History Tobacco Use Types Packs/Day Years Used Date Smoking Tobacco: Never Assessed Sex and Gender Information Value Date Recorded Sex Assigned at Not on file Legal Sex Male 7:15 PM CDT Gender Identity Not on file Sexual Orientation Not on file documented as of this encounter Miscellaneous Notes * Cerner Conversion Note - Nolan ProviderMD - 07/25/2020 11:51 AM HOME PARAPROFESSIONAL ED Assessment Entered On: 07/25/2020 13:52 EST Performed On: 07/25/2020 13:48 EST by Roderick Honeycutt RN-HERB ED Quick Look Assessment Level of Consciousness : Alert, Awake Affect/Behavior : Appropriate, Calm, Cooperative Orientation : Oriented x 4 Skin Temperature : Warm Skin Description : Dry Roderick Honeycutt RN-HERB - 07/25/2020 13:48 EST ED General-Functional Assess Communication Barrier : None Primary Language : Bulgarian Any Spiritual/Cultural Needs or Requests : No Currently in Unsafe Situation : No Roderick Honeycutt RN-RESOURCE - 07/25/2020 13:48 EST Social Habits Smoking Status : 10 or more cigarettes (1/2 pack or more)/day in last 30 days Smokeless Tobacco Status : Never Desires Tobacco Cessation Medication : No Reason for No Tobacco Cessation Medication : Refuses FDA approved medications Desires Tobacco Cessation Calc : 1 Roderick Honeycutt RN-RESOURCE - 07/25/2020 13:48 EST Social History (As Of: 07/25/2020 13:52:08 EST) Neurologic ASMT, ED Neurologic Assessment WDL : WDL with exceptions Level of Consciousness : Awake Affect/Behavior : Calm Speech : Clear Pupils Equal, Round, Reactive to Light : Yes Pupil Description, Left : Regular, Round Pupil Reaction, Left : Brisk Pupil Description, Right : Regular, Round Pupil Reaction, Right : Brisk Roderick Honeycutt RN-RESOURCE - 07/25/2020 13:48 EST documented in this encounter Plan of Treatment Not on file documented as of this encounter Visit Diagnoses Not on filedocumented in this encounter
--- OUTSIDE RECORDS SUMMARY | 2025-03-21 11:40 | XMS_ITS | Encounter Summary ---
Author Organization [employer] ([place], [place], [place], [place]) Address [address] [place] [address] Care Team Providers Care Diet Aide Name Role Phone Unavailable Primary Care Provider Unavailabl e Encounter Details Date Type Department Care Team (Late st Contact Info) Description 07/28/2020 Transcribed Document [facility] Family Medicine [address] [place] [address] ProviderNolan MD [address] [place] [address] Social History Tobacco Use Types Packs/Day Years Used Date Smoking Tobacco: Never Assessed Sex and Gender Information Value Date Recorded Sex Assigned at Not on file Legal Sex Male 7:15 PM CDT Gender Identity Not on file Sexual Orientation Not on file documented as of this encounter Miscellaneous Notes * Cerner Conversion Note - Nolan ProviderMD - 07/28/2020 10:38 AM MARKETING [place] [address] Patient Copy Patient Information: Name: JAMES LEBRON Current Date: 07/28/2020 10:37:59 : 1960 Patient Address: [address] [place] [address] [address] [address] Patient Attending Physician: ELISEO STRATTON, -INT Primary Care Provider: DALY TAM [facility] Primary Care Provider Discharge Diagnosis: Altered mental state; CVA (cerebrovascular accident); Left carotid artery occlusion Weight on Admission: 189 lb, 1 oz Comment: Follow-up Instructions: With: Address: When: MARTHA RANDALL [facility] [address] [place] [phone] [employer] (1) Within 3 months With: Address: When: JAMES NEGRO [address], [address] [place] [address] [employer] (1) Within 6 weeks Comments: Patient should call for a follow up appointment with [facility] Neurology. Discharge Instructions: Driving after Discharge: Do not drive, Other: No driving or operating heavy machinery until released by a physician. Immunizations Documented During Stay: No Immunizations Found Heart Failure Discharge Instructions (if any): Stroke Related Discharge Instructions (if any): Warfarin Related Discharge Instructions (if any): Final Medication List: Other Medications aspirin (aspirin 81 mg oral delayed release tablet) 1 Tablet(s) Oral Every Day. atorvastatin (Lipitor 80 mg oral tablet) 1 Tablet(s) Oral At Bedtime. clopidogrel (Plavix 75 mg oral tablet) 1 Tablet(s) Oral Every Day. Patient Allergies: No Known Allergies Medication Instructions: Take your medications faithfully. Do NOT skip medication. Do NOT stop taking medications without the direction of a physician. Carry a list of your medications with you at all times, and take this medication list with you to your first follow up visit. Report any side effects. Avoid herbal remedies unless discussed with your physician. As part of your treatment plan, your physician may have prescribed a limited course of a controlled substance. This medication may be given to help people with moderate or severe pain or for other medical conditions, but there are risks involved with treatment. Common side effects may include nausea, constipation, drowsiness, sweating, itching, dry mouth, and rash. More serious side effects may include cognitive and motor impairment, like problems with thinking, concentrating, alertness, and movement (e.g. slowed reflexes), and driving and operating heavy machinery can be dangerous. It is important for you to talk to your physician if you have these side effects or questions. These controlled substances can produce physical dependence and be habit-forming if taken for an extended period of time, which means that the body has gotten used to them and may experience withdrawal symptoms if they are abruptly stopped. Withdrawal symptoms can include runny nose, sweating, goose bumps, diarrhea, abdominal cramping, rapid heartbeat, difficulty sleeping, and nervousness. Patient education materials: Stroke Prevention Some medical conditions and behaviors are associated with a higher chance of having a stroke. You can help prevent a stroke by making nutrition, lifestyle, and other changes, including managing any medical conditions you may have. What nutrition changes can be made? Eat healthy foods. You can do this by: ? Choosing foods high in fiber, such as fresh fruits and vegetables and whole grains. ? Eating at least 5 or more servings of fruits and vegetables a day. Try to fill half of your plate at each meal with fruits and vegetables. ? Choosing lean protein foods, such as lean cuts of meat, poultry without skin, fish, tofu, beans, and nuts. ? Eating low-fat dairy products. ? Avoiding foods that are high in salt (sodium). This can help lower blood pressure. ? Avoiding foods that have saturated fat, trans fat, and cholesterol. This can help prevent high cholesterol. ? Avoiding processed and premade foods. ??? Follow your health care provider's specific guidelines for losing weight, controlling high blood pressure (hypertension), lowering high cholesterol, and managing diabetes. These may include: ? Reducing your daily calorie intake. ? Limiting your daily sodium intake to 1,500 milligrams (mg). ? Using only healthy fats for cooking, such as olive oil, canola oil, or sunflower oil. ? Counting your daily carbohydrate intake. What lifestyle changes can be made? Maintain a healthy weight. Talk to your health care provider about your ideal weight. ??? Get at least 30 minutes of moderate physical activity at least 5 days a week. Moderate activity includes brisk walking, biking, and swimming. ??? Do not use any products that contain nicotine or tobacco, such as cigarettes and e-cigarettes. If you need help quitting, ask your health care provider. It may also be helpful to avoid exposure to secondhand smoke. ??? Limit alcohol intake to no more than 1 drink a day for non women and 2 drinks a day for men. One drink equals 12 oz of beer, 5 oz of wine, or 1? oz of hard liquor. ??? Stop any illegal drug use. ??? Avoid taking control pills. Talk to your health care provider about the risks of taking control pills if: ? You are over 35 years old. ? You smoke. ? You get migraines. ? You have ever had a blood clot. What other changes can be made? Manage your cholesterol levels. ? Eating a healthy diet is important for preventing high cholesterol. If cholesterol cannot be managed through diet alone, you may also need to take medicines. ? Take any prescribed medicines to control your cholesterol as told by your health care provider. ??? Manage your diabetes. ? Eating a healthy diet and exercising regularly are important parts of managing your blood sugar. If your blood sugar cannot be managed through diet and exercise, you may need to take medicines. ? Take any prescribed medicines to control your diabetes as told by your health care provider. ??? Control your hypertension. ? To reduce your risk of stroke, try to keep your blood pressure below 130/80. ? Eating a healthy diet and exercising regularly are an important part of controlling your blood pressure. If your blood pressure cannot be managed through diet and exercise, you may need to take medicines. ? Take any prescribed medicines to control hypertension as told by your health care provider. ? Ask your health care provider if you should monitor your blood pressure at home. ? Have your blood pressure checked every year, even if your blood pressure is normal. Blood pressure increases with age and some medical conditions. ??? Get evaluated for sleep disorders (sleep apnea). Talk to your health care provider about getting a sleep evaluation if you snore a lot or have excessive sleepiness. ??? Take [id number] and prescription medicines only as told by your health care provider. Aspirin or blood thinners (antiplatelets or anticoagulants) may be recommended to reduce your risk of forming blood clots that can lead to stroke. ??? Make sure that any other medical conditions you have, such as atrial fibrillation or atherosclerosis, are managed. What are the warning signs of a stroke? The warning signs of a stroke can be easily remembered as BEFAST. ??? B is for balance. Signs include: ? Dizziness. ? Loss of balance or coordination. ? Sudden trouble walking. ??? E is for eyes. Signs include: ? A sudden change in vision. ? Trouble seeing. ??? F is for face. Signs include: ? Sudden weakness or numbness of the face. ? The face or eyelid drooping to one side. ??? A is for arms. Signs include: ? Sudden weakness or numbness of the arm, usually on one side of the body. ??? S is for speech. Signs include: ? Trouble speaking (aphasia). ? Trouble understanding. ??? T is for time. ? These symptoms may represent a serious problem that is an emergency. Do not wait to see if the symptoms will go away. Get medical help right away. Call your local emergency services (911 in the [place] Do not drive yourself to the hospital. ??? Other signs of stroke may include: ? A sudden, severe headache with no known cause. ? Nausea or vomiting. ? Seizure. Where to find more information For more information, visit: ??? [place] Stroke Association: www.strokeassociation.org ??? National Stroke Association: www.stroke.org Summary ??? You can prevent a stroke by eating healthy, exercising, not smoking, limiting alcohol intake, and managing any medical conditions you may have. ??? Do not use any products that contain nicotine or tobacco, such as cigarettes and e-cigarettes. If you need help quitting, ask your health care provider. It may also be helpful to avoid exposure to secondhand smoke. ??? Remember BEFAST for warning signs of stroke. Get help right away if you or a loved one has any of these signs. This information is not intended to replace advice given to you by your health care provider. Make sure you discuss any questions you have with your health care provider. Document Released: 08/22/2005 Document Revised: 06/27/2018 Document Reviewed: 08/20/2017 [employer] Patient Education ? 2020 [employer] CIGARETTE SMOKING: The facts are clear, cigarette smoking will shorten your life. Smoking can cause many illnesses along the way. As a healthcare provider, we recommend that you stop smoking. Assistance with quitting is available by contacting 7-327-ALKM-NOW. This is a free resource providing counseling, support, and referral. Or you may contact your personal physician. 4 WAYS TO GET AHEAD OF SEPSIS SEPSIS is a MEDICAL EMERGENCY. Time matters! Infections put you and your family at risk for a life-threatening condition called sepsis. Sepsis is the body???s extreme response to an infection. It is life-threatening, and without timely treatment, sepsis can rapidly lead to tissue damage, organ failure, and . Sepsis happens when an infection you already have???in your skin, lungs, urinary tract or somewhere else???triggers a chain reaction throughout your body. 1 PREVENT INFECTIONS Take good care of chronic conditions. Talk to your doctor about getting the recommended vaccines. 2 PRACTICE GOOD HYGIENE Wash your hands frequently. Keep cuts or open sores clean and covered until they are healed. 3 KNOW THE SYMPTOMS Confusion or disorientation Shortness of breath High heart rate Fever, shivering, or feeling very cold Extreme pain or discomfort Clammy or sweaty skin 4 ACT FAST Get medical care IMMEDIATELY if you suspect sepsis or if you have an infection that???s not getting better or is getting worse. To learn more about sepsis and how to prevent infections, visit www.cdc.gov/sepsis. STROKE is an EMERGENCY Every Minute Counts ACT F.A.S.T! FACE ?? Facial droop ?? Uneven smile ARM ?? Arm numbness ?? Arm weakness SPEECH ?? Slurred speech ?? Difficulty speaking or understanding TIME ?? Call 911 and get to the hospital immediately Have the ambulance go to the nearest stroke center. STROKE Risk Factors High blood pressure High cholesterol Heart Disease Diabetes Smoking Heavy alcohol use Physical inactivity and obesity Atrial Fibrillation (irregular heartbeat) Family history of stroke Reminder: Be sure to sign up for the [employer] patient portal, which gives you 18/02 access to your medical information ??? including these discharge instructions ??? using your computer, smartphone, or tablet. Just go to [place] to get started. Questions? Call . [facility] would like to thank you for allowing us to assist you with your healthcare needs. DEXTER Dinh GREGORY LEE, (or outside dealer sales representative) have received the above patient education materials/instructions and have verbalized understanding: Patient Signature _ Date/Time Patient Weigher And Crusher Signature (if needed) Date/Time Clinician/Hospital Weigher And Crusher Signature (if needed) Date/Time Electronically signed by Tereso, [facility] Conversion Process Control Operator Cerner at 11/12/2022 2:40 PM CDT documented in this encounter Plan of Treatment Not on file documented as of this encounter Visit Diagnoses Not on filedocumented in this encounter
--- OUTSIDE RECORDS SUMMARY | 2025-03-21 11:40 | XMS_ITS | Encounter Summary ---
Author Organization [employer] ([place], [place], [place], [place]) Address [address] [place] [address] Care Team Providers Care Third Mate Name Role Phone Unavailable Primary Care Provider Unavailabl e Encounter Details Date Type Department Care Team (Late st Contact Info) Description 07/25/2020 Transcribed Document [facility] Family Medicine [address] [place] [address] ProviderNolan MD [address] [place] [address] Social History Tobacco Use Types Packs/Day Years Used Date Smoking Tobacco: Never Assessed Sex and Gender Information Value Date Recorded Sex Assigned at Not on file Legal Sex Male 7:15 PM CDT Gender Identity Not on file Sexual Orientation Not on file documented as of this encounter Miscellaneous Notes * Cerner Conversion Note - Historical ProviderMD - 07/25/2020 11:51 AM IBM 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 Angie Suicide Severity Rating Scale (C-SSRS) Entered On: 07/25/2020 13:52 EST Performed On: 07/25/2020 13:48 EST by Roderick Honeycutt RN-RESOURCE Angie Suicide Severity Rating Scale (C-SSRS) CSSRS Past Month Wish to be : No CSSRS Past Month Suicidal Thoughts : No CSSRS Lifetime Suicide Behavior : No Suicide Severity Rating Score : 0 Suicide Severity Rating : No Additional Care Required at this time Roderick Honeycutt RN-RESOURCE - 07/25/2020 13:48 EST documented in this encounter Plan of Treatment Not on file documented as of this encounter Visit Diagnoses Not on filedocumented in this encounter
--- OUTSIDE RECORDS SUMMARY | 2025-03-21 11:40 | XMS_ITS | Encounter Summary ---
Author Organization [employer] ([place], [place], [place], [place]) Address [address] [place] [address] Care Team Providers Care Bin Cleaner Name Role Phone Unavailable Primary Care Provider Unavailabl e Encounter Details Date Type Department Care Team (Late st Contact Info) Description 07/27/2020 Transcribed Document [facility] Family Medicine [address] [place] [address] ProviderNolan MD [address] [place] [address] Social History Tobacco Use Types Packs/Day Years Used Date Smoking Tobacco: Never Assessed Sex and Gender Information Value Date Recorded Sex Assigned at Not on file Legal Sex Male 7:15 PM CDT Gender Identity Not on file Sexual Orientation Not on file documented as of this encounter Miscellaneous Notes * Cerner Conversion Note - Historical ProviderMD - 07/27/2020 3:56 PM GAS TORCH SOLDERER Consult Phone Call Documentation Entered On: 07/27/2020 17:01 EST Performed On: 07/27/2020 15:56 EST by PAT MCGHEE Phone Call for Consults Consult, Additional Information : called Dr. Beavers on 07/27/2020 PAT MCGHEE - 07/27/2020 17:01 EST documented in this encounter Plan of Treatment Not on file documented as of this encounter Visit Diagnoses Not on filedocumented in this encounter
--- OUTSIDE RECORDS SUMMARY | 2025-03-21 11:40 | XMS_ITS | Encounter Summary ---
Author Organization [employer] ([place], [place], [place], [place]) Address [address] [place] [address] Care Team Providers Care Business Ethics Professor Name Role Phone Unavailable Primary Care Provider Unavailabl e Encounter Details Date Type Department Care Team (Late st Contact Info) Description 07/28/2020 Transcribed Document [facility] Family Medicine [address] [place] [address] ProviderNolan MD [address] [place] [address] Social History Tobacco Use Types Packs/Day Years Used Date Smoking Tobacco: Never Assessed Sex and Gender Information Value Date Recorded Sex Assigned at Not on file Legal Sex Male 7:15 PM CDT Gender Identity Not on file Sexual Orientation Not on file documented as of this encounter Miscellaneous Notes * Cerner Conversion Note - Nolan Reardon MD - 07/28/2020 10:50 AM ROTOR WINDER DALY TAM, [address] [place] [address] Re: JAMES LEBRON Date of Visit: 07/27/2020 Dear DALY TAM Thank you for allowing me to participate in your patient's care. Please see the accompanying information that I would like to share with you regarding your patient. This Document is confidential and intended solely for the use of the individual or entity to which it is addressed. If you are not the named addressee, please disregard and do not disseminate, distribute or copy this information. If you are the intended recipient any disclosure of this information and its contents is strictly prohibited. Sincerely, DELON BAZZI [address] [facility] [place] [address] The following document(s) were included in the letter: July 28, 2020 10:38:26 EST - (07/28/2020) Discharge Note Electronically signed by Tereso [facility] Conversion Inspector Coated Fabrics Cerner at 11/12/2022 2:33 PM CDT documented in this encounter Plan of Treatment Not on file documented as of this encounter Visit Diagnoses Not on filedocumented in this encounter
--- OUTSIDE RECORDS SUMMARY | 2025-03-21 11:41 | XMS_ITS | Encounter Summary ---
Author Organization [employer] ([place], [place], [place], [place]) Address [address] [place] [address] Care Team Providers Care Field Service Representative Name Role Phone Unavailable Primary Care Provider Unavailabl e Encounter Details Date Type Department Care Team (Late st Contact Info) Description 07/26/2020 Transcribed Document [facility] [place] [address] [place] [address] ProviderNolan MD [address] [place] [address] Social History Tobacco Use Types Packs/Day Years Used Date Smoking Tobacco: Never Assessed Sex and Gender Information Value Date Recorded Sex Assigned at Not on file Legal Sex Male 7:15 PM CDT Gender Identity Not on file Sexual Orientation Not on file documented as of this encounter Miscellaneous Notes * Cerner Conversion Note - Nolan Reardon MD - 07/26/2020 1:49 PM YARD HOSTLER Education-Smoking Cessation Entered On: 07/26/2020 14:54 EST Performed On: 07/26/2020 13:49 EST by HANSEL HERRERA RN Education: Smoking/Tobacco Cessation Topics Smoking Cess Educatin Grid Advice Given to Stop Smoking : Verbalizes understanding Risks/Benefits of Smoking : Verbalizes understanding Second Hand Smoke : Verbalizes understanding Ed-Smoking Cessation Programs : Verbalizes understanding HANSEL HERRERA RN - 07/26/2020 14:54 EST Tobacco Cessation Counseling Grid Recognizing Danger Situations : Verbalizes understanding Negative Moods and/or Stress : Verbalizes understanding Being Around Other Tobacco Users : Verbalizes understanding Drinking Alcohol : Verbalizes understanding Experiencing Urges : Verbalizes understanding Tobacco Cues and Availability : Verbalizes understanding Developing Coping Skills : Verbalizes understanding Anticipate/Avoid Temptation/Triggers : Verbalizes understanding Strategies to Reduce Negative Moods : Verbalizes understanding Reduce Stress/Exposure to Tobacco Cues : Verbalizes understanding Activities to [place] With Smoking Urges : Verbalizes understanding Basic Information About Quitting : Verbalizes understanding Tobacco Use Increases Chance of Relapse : Verbalizes understanding Withdrawal Symptoms Peak After Quitting : Verbalizes understanding Addictive Nature of Tobacco : Verbalizes understanding HANSEL HERRERA RN - 07/26/2020 14:54 EST QuitLine Referral : Pt Refused HANSEL HERRERA RN - 07/26/2020 14:54 EST Electronically signed by [facility], [facility] Conversion Limo Driver Cerner at 11/12/2022 2:36 PM CDT documented in this encounter Plan of Treatment Not on file documented as of this encounter Visit Diagnoses Not on filedocumented in this encounter
--- OUTSIDE RECORDS SUMMARY | 2025-03-21 11:41 | XMS_ITS | Encounter Summary ---
Author Organization [employer] ([place], [place], [place], [place]) Address [address] [place] [address] Care Team Providers Care Manager Solution Name Role Phone Unavailable Primary Care Provider Unavailabl e Encounter Details Date Type Department Care Team (Late st Contact Info) Description 07/25/2020 Transcribed Document [facility] [place] [address] [place] [address] ProviderNolan MD [address] [place], [place] [id number] Social History Tobacco Use Types Packs/Day Years Used Date Smoking Tobacco: Never Assessed Sex and Gender Information Value Date Recorded Sex Assigned at Not on file Legal Sex Male 7:15 PM CDT Gender Identity Not on file Sexual Orientation Not on file documented as of this encounter Miscellaneous Notes * [employer] Conversion Note - Historical ProviderMD - 07/25/2020 7:52 PM 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 Rhodes seen patient on 07/26/2020 PAT MCGHEE - 07/27/2020 7:20 EST documented in this encounter Plan of Treatment Not on file documented as of this encounter Visit Diagnoses Not on filedocumented in this encounter
--- OUTSIDE RECORDS SUMMARY | 2025-03-21 11:41 | XMS_ITS | Encounter Summary ---
Author Organization [employer] ([place], [place], [place], [place]) Address [address] [place] [address] Care Team Providers Care Hospital Staff Pharmacist Name Role Phone Unavailable Primary Care Provider Unavailabl e Encounter Details Date Type Department Care Team (Late st Contact Info) Description 07/25/2020 Transcribed Document [facility] [place] Family Medicine [address] [place] [address] ProviderNolan MD [address] [place], [place] [phone] Social History Tobacco Use Types Packs/Day Years Used Date Smoking Tobacco: Never Assessed Sex and Gender Information Value Date Recorded Sex Assigned at Not on file Legal Sex Male 7:15 PM CDT Gender Identity Not on file Sexual Orientation Not on file documented as of this encounter Miscellaneous Notes * Cerner Conversion Note - Nolan ProviderMD - 07/25/2020 10:19 PM DOPE SPRAYER Patient: JAMES LEBRON Age: 59 Years Sex: Male : 1960 Chief Complaint Pt seen at [facility] 07/16 for CVA/slurred speech. Advised has 100% blockage to L carotid. Left AMA from [facility] on 07/17. Dtr states has been sleeping more since 07/11, has increased confusion when waking. Started ASA, plavix, atorvastatin @ [facility]. Primary Care Provider DALY TAM [facility] History of Present Illness Mr. Lebron is a 59 year old male with long history of tobacco use, daily alcohol use (6-8 beers). Patient is a very poor historian and no family is at bedside during my exam, so most history is taken from chart. Apparently, per daughter, patient had some altered mentation since around mid June. His symptoms continued and eventually progressed to slurred speech, confusion. He was taken to [facility] ED where he was found to have CVA with 100% blockage of LCA. He was transferred to . However, before he could undergo any further workup, he left AMA. He saw his PCP and was started on ASA, statin, and plavix. Apparently, he has not had any improvement in his mentation and so that is why they brought him here tonight. Patient cannot tell me why he was brought here. He says he feels perfectly fine and has this entire time. He says I guess I had a stroke, but is unable to elaborate. He is very slow to answer and isn't always appropriate with his answers. He is oriented but definitely is having some cognitive issues. CT head without contrast was performed which showed periventricular white matter changes, possible small vessel disease; recommended MRI. ED provider spoke with Dr. Rhodes of Neurology, who agreed to consult on admission. Vital Signs T: 36.9 ??C HR: 44(Monitored) RR: 20 BP: 153/74 SpO2: 96% HT: 182.88 cm WT: 85.95 kg BMI: 25.7 Oxygen Settings (Last) Oxygen Therapy Mode: Room air (07/25/20 21:00:00) Physical Exam General: Alert and oriented, slow to answer, confused about medical history/recent events, well nourished, no acute distress Neurologic: Moves all 4 extremities spontaneously, oriented X3, no focal deficits appreciated Eye: PERRL, EOMI, normal conjunctiva HENT: Normocephalic, normal hearing, moist oral mucosa Neck: Supple, non-tender, no lymphadenopathy Lungs: Clear to auscultation, non-labored respiration, no crackles, no wheeze Heart: Normal rate, regular rhythm, no murmur, no edema Abdomen: Soft, non-tender, non-distended, normal bowel sounds Musculoskeletal: No obvious deformity, no tenderness Skin: warm, dry and pink, no rashes or lesions Psychiatric: Cooperative Assessment/Plan #CVA subacute Will need to request records from [facility] MRI ordered Neuro consulted A1C, lipid panel, TSH in AM monitor on tele Resume ASA, statin #Elevated BP Unclear if he takes any meds at home or if has an official diagnosis Treat PRN #Tobacco use Encourage cessation #Alcohol use says hasn't drank in 3 weeks He is very poor historian and seems unreliable in this report Check alcohol level monitor for signs of withdrawal, GIO Dispo: admit to observation. Pending Neuro recs VTE Prophylaxis - Medical No VTE Prophylaxis Orders. Problem List/Past Medical History Ongoing No qualifying data Historical No qualifying data No qualifying data available Allergies No Known Allergies Lab Results Test Name Test Result Date/Time Sodium Level 136 mmol/L 07/25/2020 14:00 EST Potassium Level 3.9 mmol/L 07/25/2020 14:00 EST Chloride Level 106 mmol/L 07/25/2020 14:00 EST Carbon Dioxide Level 27 mmol/L 07/25/2020 14:00 EST Anion Gap 7 (Low) 07/25/2020 14:00 EST Glucose Level 93 mg/dL 07/25/2020 14:00 EST Blood Urea Nitrogen 13 mg/dL 07/25/2020 14:00 EST Creatinine Level 0.90 mg/dL 07/25/2020 14:00 EST eGFR >60 mL/min/1.73m2 07/25/2020 14:00 EST eGFR NonAfrican >60 mL/min/1.73m2 07/25/2020 14:00 EST Bun/Creatinine 14.4 07/25/2020 14:00 EST Calcium Level 9.0 mg/dL 07/25/2020 14:00 EST Device Comment 1 Protocols Followed 07/25/2020 13:59 EST Glucose POC2 104 mg/dL 07/25/2020 13:59 EST WBC 10.8 K/uL (High) 07/25/2020 14:00 EST RBC 4.94 Million/uL 07/25/2020 14:00 EST Hgb 15.8 g/dL 07/25/2020 14:00 EST Hct 47.2 % 07/25/2020 14:00 EST MCV 95.5 fL (High) 07/25/2020 14:00 EST MCH 32.0 pg 07/25/2020 14:00 EST MCHC 33.5 Gram/dL 07/25/2020 14:00 EST Platelet Count 287 K/uL 07/25/2020 14:00 EST MPV 9.9 fL 07/25/2020 14:00 EST RDW 12.4 % 07/25/2020 14:00 EST Neut % 72.5 % (High) 07/25/2020 14:00 EST Neut # 7.82 K/uL (High) 07/25/2020 14:00 EST Lymph % 18.2 % (Low) 07/25/2020 14:00 EST Lymph # 1.96 x10(3)/uL 07/25/2020 14:00 EST [place] % 7.0 % 07/25/2020 14:00 EST [place] # 0.76 K/uL 07/25/2020 14:00 EST Eos % 1.0 % 07/25/2020 14:00 EST Eos # 0.11 x10(3)/uL 07/25/2020 14:00 EST Baso % 0.7 % 07/25/2020 14:00 EST Baso # 0.08 x10(3)/uL 07/25/2020 14:00 EST Slide Review No 07/25/2020 14:00 EST IG# 0.06 x10(3)/uL (High) 07/25/2020 14:00 EST IG% 0.60 % 07/25/2020 14:00 EST Urine Type. U CleanCatch 07/25/2020 14:48 EST Urine Color YELLOW2 07/25/2020 14:48 EST Urine Appearance CLEAR2 07/25/2020 14:48 EST Urine Specific [place] 1.010 07/25/2020 14:48 EST Urine pH Dipstick 6.0 07/25/2020 14:48 EST Urine Leukocyte Esterase NEGATIVE2 07/25/2020 14:48 EST Urine Nitrite NEGATIVE2 07/25/2020 14:48 EST Urine Protein Dipstick NEGATIVE2 07/25/2020 14:48 EST Urine Glucose Dipstick NEGATIVE2 07/25/2020 14:48 EST Urine Ketones Dipstick NEGATIVE2 07/25/2020 14:48 EST Urine Urobilinogen Dipstick 1.0 (Abnormal) 07/25/2020 14:48 EST Urine Bilirubin Dipstick NEGATIVE2 07/25/2020 14:48 EST Urine Blood Dipstick NEGATIVE2 07/25/2020 14:48 EST Ur RBC 0-2 (Abnormal) 07/25/2020 14:48 EST Additional Documentation Code Status Start: 07/25/20 19:52:00 EST, Full Code, Continuous Order Electronically signed by Tereso, [facility] Conversion Director Of Anesthesia Services Cerner at 11/12/2022 2:43 PM CDT documented in this encounter Plan of Treatment Not on file documented as of this encounter Visit Diagnoses Not on filedocumented in this encounter
--- OUTSIDE RECORDS SUMMARY | 2025-03-21 11:41 | XMS_ITS | Clinical Summary ---
Author Organization [employer] ([place], [place], [place], [place]) Address [address] [place] [id number] Care Team Providers Care Cost Estimating Clerk Name Role Phone Unavailable Primary Care Provider Unavailabl e Social History Tobacco Use Types Packs/Day Years Used Date Smoking Tobacco: Never Assessed Sex and Gender Information Value Date Recorded Sex Assigned at Not on file Legal Sex Male 7:15 PM CDT Gender Identity Not on file Sexual Orientation Not on file Plan of Treatment Not on file
--- OUTSIDE RECORDS SUMMARY | 2025-03-21 11:41 | XMS_ITS | Encounter Summary ---
Author Organization [employer] ([place], [place], [place], [place]) Address [address] [place] [address] Care Team Providers Care Circuit Court Magistrate Name Role Phone Unavailable Primary Care Provider Unavailabl e Encounter Details Date Type Department Care Team (Late st Contact Info) Description 07/26/2020 Transcribed Document [facility] [place] Medicine [address] [place] [address] ProviderNolan MD [address] [place] [address] Social History Tobacco Use Types Packs/Day Years Used Date Smoking Tobacco: Never Assessed Sex and Gender Information Value Date Recorded Sex Assigned at Not on file Legal Sex Male 7:15 PM CDT Gender Identity Not on file Sexual Orientation Not on file documented as of this encounter Miscellaneous Notes * Cerner Conversion Note - Nolan ProviderMD - 07/26/2020 1:49 PM AUTOMOTIVE FLEET SUPERVISOR Evaluation, Occupational Therapy Entered On: 07/27/2020 15:27 EST Performed On: 07/27/2020 15:24 EST by GE ARIZMENDI OTR/Tr General Information, OT Visit Type, OT : Initial evaluation Patient Orders : Order Date Order Ordering MD 07/26/2020 13:49 OT Evaluation and Treatment Ordered By: ENOC RANKIN MD-DEBBIE Active Diagnoses : 07/25/2020 12:00 Altered mental status 07/25/2020 12:00 Altered mental status, unspecified 07/25/2020 12:00 Cerebral infarction, unspecified 07/25/2020 12:00 Occlusion and stenosis of left carotid artery Admission Date : 07/27/2020 10:41 Personal Devices : Personal Devices No Devices Recorded Assistive Devices : Assistive Devices No Devices Recorded General Information Comment, OT : Dx: AMS,CVA GE ARIZMENDI OTR/Tr - 07/27/2020 15:24 EST General Status Patient Received Status : Supine in bed Treatment Start Time : 07/27/2020 14:00 EST Patient Left Status : Supine in bed Treatment End Time : 07/27/2020 14:09 EST Treatment Time : 9 Minute(s) GE ARIZMENDI OTR/Tr - 07/27/2020 15:24 EST History and Environment, OT Living Situation, Therapy : Home Patient Lives With : Spouse GE ARIZMENDI OTR/Tr - 07/27/2020 15:24 EST Prior LOF Bathing, OT : Independent Prior LOF Bed Mobility : Independent Prior LOF Upper Body Dressing, OT : Independent Prior LOF Lower Body Dressing, OT : Independent Prior LOF Toileting : Independent Prior LOF Transfer : Independent Prior LOF Grooming, OT : Independent Prior LOF for IADLs, OT : Independent GE ARIZMENDI OTR/Tr - 07/27/2020 15:24 EST Upper Extremity Right UE Active ROM : WFL Left UE Active ROM : WFL GE ARIZMENDI OTR/Tr - 07/27/2020 15:24 EST Right Upper Extremity MMT Shoulder Flexion 0-180 : 5/normal Shoulder Extension 0-60 : 5/normal Shoulder Abduction 0-180 : 5/normal Shoulder Adduction 0-180 : 5/normal Shoulder Internal Rotation 0-90 : 5/normal Shoulder External Rotation 0-90 : 5/normal Elbow Flexion 0-150 : 5/normal Elbow Extension 0-0 : 5/normal Wrist Flexion 0-80 : 5/normal Wrist Extension 0-70 : 5/normal Forearm Pronation 0-70 : 5/normal Forearm Supination 0-85 : 5/normal Ulnar Deviation 0-45 : 5/normal RadialDeviation 0-20 : 5/normal GE ARIZMENDI OTR/Tr - 07/27/2020 15:24 EST Left Upper Extremity MMT Shoulder Flexion 0-180 : 5/normal Shoulder Extension 0-60 : 5/normal Shoulder Abduction 0-180 : 5/normal Shoulder Adduction 0-180 : 5/normal Shoulder Internal Rotation 0-90 : 5/normal Shoulder External Rotation 0-90 : 5/normal Elbow Flexion 0-150 : 5/normal Elbow Extension 0-0 : 5/normal Wrist Flexion 0-80 : 5/normal Wrist Extension 0-70 : 5/normal Forearm Pronation 0-70 : 5/normal Forearm Supination 0-85 : 5/normal Ulnar Deviation 0-45 : 5/normal RadialDeviation 0-20 : 5/normal GE ARIZMENDI OTR/Tr 07/27/2020 15:24 EST Self Care/Home Management, OT Self Feeding Assist Level, OT : Independent, complete Grooming Assist Level, OT : Independent, complete Upper Body Dressing Assist Level, OT : Independent, complete Lower Body Dressing Assist Level, OT : Independent, complete Toileting Assist Level : Independent, complete Toilet Transfer Assist Level : Independent, complete GE ARIZMENDI OTR/Tr 07/27/2020 15:24 EST Functional Mobility Mobility Grid Bed Roll Left : Rehab Complete independence Bed Roll Right : Rehab Complete independence Supine to Sit : Rehab Complete independence Sit to Stand : Rehab Complete independence Bed to Chair : Rehab Complete independence Stand to Sit : Rehab Complete independence Sit to Supine : Rehab Complete independence GE ARIZMENDI OTR/Tr 07/27/2020 15:24 EST Cognition Assessment, OT Orientation : Oriented x 4 GE ARIZMENDI OTR/Tr 07/27/2020 15:24 EST Indication Assessment, OT Occupational Therapy Indicated : No Occupational Therapy Not Indicated : Other: Pt complete independent with ADLs and at PLOF GE ARIZMENDI OTR/Tr 07/27/2020 15:24 EST Plan of Care, OT OT Tx Plan/Goals Established w Patient : No Reason OT Treatment/Plan Not Established : Pt complete independent with ADLs and at PLOF GE ARIZMENDI OTR/Tr 07/27/2020 15:24 EST Treatment Note Subjective Comment : Pt was agreeable Patient's Response to Treatment : Pt tolerated eval well Additional Objective Information : Pt was found lying supine in bed. Pt was complete independent for all fx mobility, ambulation over 400 ft, donning/ doffing socks. Pt was left lying supine in bed with all needs met and call light within reach Assessment : Pt complete independent with ADLs and at PLOF . OT will sign off Plan for Treatment : eval only GE ARIZMENDI OTR/Tr 07/27/2020 15:24 EST Anticipated Discharge Needs, OT/PT Anticipated Discharge to : Home, with family care GE ARIZMENDI OTR/Tr 07/27/2020 15:[address] [facility] OT Charges OT Eval Moderate Complexity : 1 GE ARIZMENDI OTR/Tr 07/27/2020 15:24 EST documented in this encounter Plan of Treatment Not on file documented as of this encounter Visit Diagnoses Not on filedocumented in this encounter
--- OUTSIDE RECORDS SUMMARY | 2025-03-21 11:41 | XMS_ITS | Encounter Summary ---
Author Organization [employer] ([place], [place], [place], [place]) Address [address] [place] [address] Care Team Providers Care Psychiatry Physician Name Role Phone Unavailable Primary Care Provider Unavailabl e Encounter Details Date Type Department Care Team (Late st Contact Info) Description 07/28/2020 Transcribed Document [facility] [place] Family Medicine [address] [place] [address] ProviderNolan MD [address] [place], [place] [phone] Social History Tobacco Use Types Packs/Day Years Used Date Smoking Tobacco: Never Assessed Sex and Gender Information Value Date Recorded Sex Assigned at Not on file Legal Sex Male 7:15 PM CDT Gender Identity Not on file Sexual Orientation Not on file documented as of this encounter Miscellaneous Notes * Cerner Conversion Note - Historical ProviderMD - 07/28/2020 2:34 PM WALLPAPER SCRAPER Stroke/Warfarin Instructions Entered On: 07/28/2020 14:34 EST Performed On: 07/28/2020 14:34 EST by OTTONIEL VELAZCO RN Stroke/Warfarin Instructions Stroke/TIA Discharge Ins : N/A Warfarin Discharge Ins : N/A OTTONIEL VELAZCO RN - 07/28/2020 14:34 EST Electronically signed by Tereso [facility] Conversion Hiv Prevention Specialist Cerner at 11/12/2022 2:50 PM CDT documented in this encounter Plan of Treatment Not on file documented as of this encounter Visit Diagnoses Not on filedocumented in this encounter
--- OUTSIDE RECORDS SUMMARY | 2025-03-21 11:41 | XMS_ITS | Encounter Summary ---
Author Organization [employer] ([place], [place], [place], [place]) Address [address] [place] [address] Care Team Providers Care Quality Control Head Name Role Phone Unavailable Primary Care Provider Unavailabl e Encounter Details Date Type Department Care Team (Late st Contact Info) Description 07/26/2020 Transcribed Document [facility] [place] Family Medicine [address] [place] [address] ProviderNolan MD [address] [place], [place] [phone] Social History Tobacco Use Types Packs/Day Years Used Date Smoking Tobacco: Never Assessed Sex and Gender Information Value Date Recorded Sex Assigned at Not on file Legal Sex Male 7:15 PM CDT Gender Identity Not on file Sexual Orientation Not on file documented as of this encounter Miscellaneous Notes * Cerner Conversion Note - Historical ProviderMD - 07/26/2020 1:17 PM CLAIM MANAGER Meds to Bed Enrollment Entered On: 07/26/2020 13:17 EST Performed On: 07/26/2020 13:17 EST by Jaswinder Barger HEAD GREENSKEEPER LEAD Meds to Bed Enrollment Patient Enrollment Decision: : Yes/enroll in meds to bed program Jaswinder Barger HEAD GREENSKEEPER LEAD - 07/26/2020 13:17 EST documented in this encounter Plan of Treatment Not on file documented as of this encounter Visit Diagnoses Not on filedocumented in this encounter
--- OUTSIDE RECORDS SUMMARY | 2025-03-21 11:41 | XMS_ITS | Encounter Summary ---
Author Organization [employer] ([place], [place], [place], [place]) Address [address] [place] [address] Care Team Providers Care Force Dispatcher Name Role Phone Unavailable Primary Care Provider Unavailabl e Encounter Details Date Type Department Care Team (Late st Contact Info) Description 07/26/2020 Transcribed Document [facility] [place] Family Medicine [address] [place] [address] ProviderNolan MD [address] [place] [address] Social History Tobacco Use Types Packs/Day Years Used Date Smoking Tobacco: Never Assessed Sex and Gender Information Value Date Recorded Sex Assigned at Not on file Legal Sex Male 7:15 PM CDT Gender Identity Not on file Sexual Orientation Not on file documented as of this encounter Miscellaneous Notes * [employer]ner Conversion Note - Nolan ProviderMD - 07/26/2020 1:49 PM NEWSPAPER COLUMNIST Language/Communication/Cognition Eval Entered On: 07/27/2020 15:27 EST Performed On: 07/27/2020 15:11 EST by DORINA COBB, AUTO CLAIM REPRESENTATIVE General Information Visit Type, AUTO CLAIM REPRESENTATIVE : Initial evaluation Patient Orders : Speech Language Pathology Evaluation and Treatment -111 Start: 07/26/20 13:49:00 EST, Routine, For Speech Language Cognitive Eval and Treat - ENOC RANKIN MD-DEBBIE Admission Date : Admission Date/Time: 07/27/20 10:41:00 Medical Chart Reviewed, AUTO CLAIM REPRESENTATIVE : Yes Personal Devices : Personal Devices No Devices Recorded Assistive Devices : Assistive Devices No Devices Recorded Active Diagnoses : 07/25/2020 12:00 Altered mental status 07/25/2020 12:00 Altered mental status, unspecified 07/25/2020 12:00 Cerebral infarction, unspecified 07/25/2020 12:00 Occlusion and stenosis of left carotid artery Therapy Diagnosis, AUTO CLAIM REPRESENTATIVE : Anomic Aphasia with mild-moderate dysarthria RECS 1. Initiate skilled ST to target aphasia and speech Previous Swallow Precautions : bedside this admit with recs for reg/thin diet Diet/Intake Prior to Current Admission : Regular/thin Diet/Intake During Current Admission : reg/thin Intubation Comment, AUTO CLAIM REPRESENTATIVE : n/a Vital Signs RTF : Vitals Temp BP Pulse RR SpO2 FIO2 Date Wt(kg) Wt(lb) 07/26 11:29 ---- 133/73 --- 18 97 --- 07/25 86.0 189 07/26 05:45 ---- 136/68 --- 16 95 --- 07/25 86.0 189 07/26 03:11 ---- 125/73 --- -- 95 --- 07/25 22:48 ---- 156/86 --- 19 97 --- 07/25 21:00 ---- 153/74 --- 20 96 --- 24 Hr Tmax: No Data Available 36 Hr Tmax: No Data Available Vital Signs are the last 5 in the past 48 hours. Weights display the last 5 within 7 days. Initial Wt: 07/25 86.0 kg 189 lb Respiratory Assessment Comment : nasal cannula DORINA COBB, NATHAN - 07/27/2020 15:11 EST General Status Patient Received Status, AUTO CLAIM REPRESENTATIVE : Long sitting in bed Patient Left Status, AUTO CLAIM REPRESENTATIVE : Long sitting in bed DORINA COBB SLP - 07/27/2020 15:11 EST Pain Assessment Pain Scaled Used : FACES Pain Score Pre-Intervention : 2 DORINA COBB SLP - 07/27/2020 15:11 EST Image 1 - Images currently included in the form version of this document have not been included in the text rendition version of the form. Oral Mechanism Oral Mechanism for Daily Living : Other: see dysphagia eval for details DORINA COBB SLP - 07/27/2020 15:11 EST Evaluation Methods Types of Evaluation, AUTO CLAIM REPRESENTATIVE : Formal and subtests Formal and Subtests Eval Types, All Ages : Western Aphasia Battery (WAB) WAB, Spontaneous Speech: Content : 6 WAB, Spontaneous Speech: Fluency : 8 WAB, Aud Vrbl Comprehension: Yes/No Qstn : 8 WAB, Naming: Object Naming : 7 WAB, Total Score : 29 DORINA COBB SLP - 07/27/2020 15:11 EST LCC Impressions Impressions, Speech/Lang/Cog : Dysarthria, Aphasia Dysarthria Type, Motor Speech : Flaccid Aphasia Type : Anomia [facility] Overall Impressions : Pt seen for communication eval following L CVA. Pt is administered WAB Bedside. He presents with Anomic Aphasia with an overall Aphasia score of 61%. Areas of difficulty include content of spontaneous speech, complex y/n questions, confrontational naming, and intermittent repetition. Pt appears to have very little awareness of deficits even with y/n questions in error. His speech is mild-moderately dysarthric. He attempts to utilize compensatory strategies with direct repetition but currently there is no carryover into conversation. Will initiate tx for aphasia. Pt is anxious to be d/c home. Discussed with DORINA SUNG SLP - 07/27/2020 15:11 EST Therapy Indication Assessment AUTO CLAIM REPRESENTATIVE Indicated : Yes AUTO CLAIM REPRESENTATIVE Problem List : Impaired, Spoken Language Comprehension, Impaired, Spoken Language Expression DORINA COBB SLP - 07/27/2020 15:11 EST LTG Lang/Comm/Cog LTG AUTO CLAIM REPRESENTATIVE Crisis Intervention Specialist Goal 1 Goals : Understand communication deficits and impact on daily living upon discharge Status : Initial DORINA COBB SLP - 07/27/2020 15:11 EST STG Lang_Comm_Cog Treatment Plan Est w/Pt/Caregvr, [facility] : Yes DORINA COBB SLP - 07/27/2020 15:11 EST Motor Speech STG Grid Goal #1 Activity : Improve intelligibility of speech Comp Strategies : Slow rate, Overarticulation, Increased loudness Status : Initial DORINA COBB SLP - 07/27/2020 15:11 EST Auditory Comprehension Grid Goal #1 Goal #2 Activity : Follow directions, 2 step commands complex Answer yes/no questions, complex Status : Initial Initial DORINA COBB SLP - 07/27/2020 15:11 EST DORINA COBB SLP - 07/27/2020 15:11 EST Verbal Expression STG Grid Goal #1 Goal #2 Goal #3 Activity : Name objects Verbally complete phrases Generate items in a category Status : Initial Initial Initial DORINA COBB SLP - 07/27/2020 15:11 EST DORINA COBB SLP - 07/27/2020 15:11 EST DORINA COBB AUTO CLAIM REPRESENTATIVE - 07/27/2020 15:11 EST Education Barriers To Learning : Desire/Motivation Individuals Taught : Patient DORINA COBB SLP - 07/27/2020 15:11 EST AUTO CLAIM REPRESENTATIVE Education Assessment Grid 1 Communication, Effects of Impairment : Needs further teaching Communication, Strategies For Partner : Needs further teaching Communication, Strategies For Patient : Needs further teaching DORINA COBB SLP - 07/27/2020 15:[address] [facility] AUTO CLAIM REPRESENTATIVE Charges Evaluation of Speech Production & Language : 1 DORINA COBB SLP - 07/27/2020 15:11 EST Electronically signed by Tereso [facility] Conversion Hosiery Mater Cerner at 11/12/2022 2:57 PM CDT documented in this encounter Plan of Treatment Not on file documented as of this encounter Visit Diagnoses Not on filedocumented in this encounter
--- OUTSIDE RECORDS SUMMARY | 2025-03-21 11:41 | XMS_ITS | Encounter Summary ---
Author Organization [employer] ([place], [place], [place], [place]) Address [address] [place] [address] Care Team Providers Care Utilization Engineer Name Role Phone Unavailable Primary Care Provider Unavailabl e Encounter Details Date Type Department Care Team (Late st Contact Info) Description 07/25/2020 Transcribed Document [facility] – [place] Family Medicine [address] [place] [address] ProviderNolan MD [address] [place] [address] Social History Tobacco Use Types Packs/Day Years Used Date Smoking Tobacco: Never Assessed Sex and Gender Information Value Date Recorded Sex Assigned at Not on file Legal Sex Male 7:15 PM CDT Gender Identity Not on file Sexual Orientation Not on file documented as of this encounter Miscellaneous Notes * Cerner Conversion Note - Nolan Reardon MD - 07/25/2020 11:16 PM RESPIRATORY CLINICIAN Admission History, Adult Entered On: 07/25/2020 23:21 EST Performed On: 07/25/2020 23:16 EST by Ector Sanchez RN-Marlen Advance Directive Patient has Advance Directive *Q : No, patient refuses Advance Directive information Ector Sanchez RN-Marlen - 07/25/2020 23:16 EST Anesthesia/Transfusion History Family History of Anesthesia Reaction : No prior transfusion(s) Transfusion History : No prior anesthesia Family History of Anesthesia Reaction : None Ector Sanchez RN-Marlen - 07/25/2020 23:16 EST Functional Assessment Living Situation : Home Current Home Treatments : None Ector Sanchez RN-Marlen - 07/25/2020 23:16 EST General Info Contact Password : [email or web address] Emergency Contact #1 : katiuska Emergency Contact #1 Emergency Contact #1 Relationship : daughter Emergency Contact #2 : . Emergency Contact #2 Phone Number : . Emergency Contact #2 Relationship : . HANSEL HERRERA RN - 07/26/2020 16:00 EST Mode of Arrival on Unit : Ambulatory Legal Guardian : Daughter Want Family/Rep/Phys Notified of Admit : No Chief Complaint : Pt seen at [facility] 07/16 for CVA/slurred speech. Advised has 100% blockage to L carotid. Left AMA from [facility] on 07/17. Dtr states has been sleeping more since 07/11, has increased confusion when waking. Started ASA, plavix, atorvastatin @ [facility]. Primary Language : Divehi Communication Barrier : None Ector Sanchez RN-Resource - 07/25/2020 23:16 EST Fall Risk Scales ABCs Fall Injury Risk Identification : Age ABC Fall Injury Risk : Moderate to high injury risk ALLEN Hx Falls Immediate/Within 3 Months : No Allen Secondary Diagnosis : Yes ALLEN Use of Ambulatory Aid : Bed rest/Nurse assist ALLEN IV Therapy or IV Access : Yes Allen Gait/Transferring : Normal, bedrest, immobile Allen Mental Status : Overestimates/Forgets limitations Allen Fall Risk Score : 50 ALLEN Fall Scale Risk Level : 46 or > High Risk [place] Fall Interventions : Adequate lighting, Assistive devices within reach, Bed in low position, Call device within reach, Fall prevention handout/education per facility policy, Hourly comfort/safety rounds, Non-slip footwear, Personal items within reach, Reinforced to call for assistance before getting out of bed, Room free of clutter/spills, Upper side-rails up, Wheels locked, Wires/Cords secured Ector Sanchez RN-Resource - 07/25/2020 23:16 EST Health Histories Smoking Status : 10 or more cigarettes (1/2 pack or more)/day in last 30 days Smokeless Tobacco Status : Never Desires Tobacco Cessation Medication : No Reason for No Tobacco Cessation Medication : Refuses FDA approved medications Ector Sanchez RN-Resource - 07/25/2020 23:16 EST Social History (As Of: 07/25/2020 23:21:26 EST) Height and Weight, Clinical Dosing Height Source : Stated Height Entry Format : [place] Height, Feet : 6 ft(Converted to: 183 cm, 72 Inch) Height, Inches : 0 Inch(Converted to: 0 ft 0 Inch, 0.00 cm) Clinical Height : 182.88 cm Weight Source : Bed scale Weight Entry Format : [place] Clinical Dosing Weight : 85.95 kg Weight, Pounds : 189.1 lb Body Surface Area (BSA) : 2.08 m2 Body Mass Index : 25.7 kg/m2 (HI) Grahn Body Weight : 77 kg Ector Sanchez RN-Resource - 07/25/2020 23:16 EST Infectious Disease History Has the patient ever been tested for COVID-19? : Yes, Patient stated results Negative Date of COVID-19 test known? : Yes Date of COVID-19 Test : 07/17/2020 EST Does patient have symptoms of COVID-19? : No COVID19 Screening : No Experiencing Infectious Disease Symptoms : No symptoms Physical contact outside [place] in the last 30 days : No Infectious Disease History : Chicken pox/Shingles, Measles, Mumps Tuberculosis Symptoms : None Ector Sanchez RN-Resource - 07/25/2020 23:16 EST Influenza Vaccine Asmt, Adult Previous Vaccines from Immunization Schedule : No qualifying data available. Influenza Immunization, Current Season : Unknown Inactivated Flu Vaccine Contraindications : No contraindications to inactivated influenza vaccine Transplant Workup/Recent Transplant : No Order for Influenza Vaccine : Declined Vaccination Ector Sanchez RN-Resource - 07/25/2020 23:16 EST Pneumococcal Vaccine Previous Vaccines from Immunization Schedule : No qualifying data available. Pneumonia Immunization Received : No Pneumococcal Risk Assessment < Age 65 : Cigarette smoker Pneumococcal Vaccine Contraindications : No contraindications to pneumococcal vaccine Transplant Workup/Recent Transplant : No Order for Pneumococcal Vaccine : Declined Vaccination Ector Sanchez RN-Resource - 07/25/2020 23:16 EST Order Details Order Detail : N/A Patient Needs Meds Crushed/Liquid : No Ector Sanchez RN-Resource - 07/25/2020 23:16 EST Nutrition History Eating Poorly Due to Decreased Appetite : No Unplanned Weight Loss in Past 3-6 Months : No Malnutrition Screening Tool Total(mal) : 0 Malnutrition Screening Tool Risk Level : Patient not at risk Ector Sanchez RN-Resource - 07/25/2020 23:16 EST [place] Suicide Severity Rating Scale (C-SSRS) CSSRS Past Month Wish to be : No CSSRS Past Month Suicidal Thoughts : No CSSRS Lifetime Suicide Behavior : No Suicide Severity Rating Score : 0 Suicide Severity Rating : No Additional Care Required at this time Ector Sanchez RN-Resource - 07/25/2020 23:16 EST Psychosocial History Currently in Unsafe Situation : No Ector Sanchez RN-Resource - 07/25/2020 23:16 EST Sleep Apnea Risk Assmt Hx of Obstructive Sleep Apnea Diagnosis : No Snore Loudly : No Tired, Fatigued, or Sleepy During Day : No Observed Stopping Breathing During Sleep : No Have/Are Being Treated for Hypertension : No BMI Greater Than 35 kg/m2 : No Age over 50 Years Old : Yes Neck Circumference Greater Than 40 cm : No Gender Male : Yes STOP-BANG Sleep Apnea Risk Level Score : 2 Ector Sanchez RN-Resource - 07/25/2020 23:16 EST Valuables and Belongings Valuables and Belongings : Clothing, Personal items Clothing : Common streetwear Clothing Disposition : Bedside Personal Items : Cell phone Personal Items Disposition : Bedside Ector Sanchez RN-Resource - 07/25/2020 23:16 EST documented in this encounter Plan of Treatment Not on file documented as of this encounter Visit Diagnoses Not on filedocumented in this encounter
--- OUTSIDE RECORDS SUMMARY | 2025-03-21 11:41 | XMS_ITS | Encounter Summary ---
Author Organization [facility] ([place], [place], [place], [place]) Address [address] [place] [address] Care Team Providers Care Delicatessen Goods Stock Clerk Name Role Phone Unavailable Primary Care Provider Unavailabl e Encounter Details Date Type Department Care Team (Late st Contact Info) Description 07/26/2020 Transcribed Document [facility] – [place] Family Medicine [address] [place] [address] ProviderNolan MD [address] [place] [address] Social History Tobacco Use Types Packs/Day Years Used Date Smoking Tobacco: Never Assessed Sex and Gender Information Value Date Recorded Sex Assigned at Not on file Legal Sex Male 7:15 PM CDT Gender Identity Not on file Sexual Orientation Not on file documented as of this encounter Miscellaneous Notes * Cerner Conversion Note - Historical ProviderMD - 07/26/2020 1:49 PM ELECTRONIC EQUIPMENT INSTALLER Spiritual Care Assessment Entered On: 07/26/2020 16:06 EST Performed On: 07/26/2020 16:04 EST by SARI FISHER General Information Referred by : Physician Referral Reason Comment : Code Stroke assessment Ministry Provided to : Patient SARI FISHER - 07/26/2020 16:04 EST Spiritual Assessment Spiritual Assessment Comment/Summary Points : Ema is a resource; Mr. Lebron goes to a local [employer] religious; His and daughter provide emotional support; He expressed no needs; POC: Will follow PRN Spirital Assessment Comment/Summary Report : SPIRITUAL ASSESSMENT COMMENT/SUMMARY No qualifying data available. SARI FISHER - 07/26/2020 16:04 EST documented in this encounter Plan of Treatment Not on file documented as of this encounter Visit Diagnoses Not on filedocumented in this encounter
--- OUTSIDE RECORDS SUMMARY | 2025-03-21 11:41 | XMS_ITS | Encounter Summary ---
Author Organization [employer] ([place], [place], [place], [place]) Address [address] [place] [address] Care Team Providers Care Dietician Name Role Phone Unavailable Primary Care Provider Unavailabl e Encounter Details Date Type Department Care Team (Late st Contact Info) Description 07/28/2020 Transcribed Document [facility] [place] Medicine [address] [place] [address] ProviderNolan MD [address] [place], [place] [id number] Social History Tobacco Use Types Packs/Day Years Used Date Smoking Tobacco: Never Assessed Sex and Gender Information Value Date Recorded Sex Assigned at Not on file Legal Sex Male 7:15 PM CDT Gender Identity Not on file Sexual Orientation Not on file documented as of this encounter Miscellaneous Notes * Cerner Conversion Note - Nolan Reardon MD - 07/28/2020 12:52 PM SENIOR CORPORATE RECRUITER Final Discharge Planning Entered On: 07/28/2020 12:55 EST Performed On: 07/28/2020 12:52 EST by JACY BONILLA RN-Care Management Final Discharge Planning Discharge Arrangements : Patient Post-Acute Information Patient Name: JAMES LEBRON Gender: Male : 56 Age: 59 Years No Post-Acute Placement(s) Listed No Post-Acute Service(s) Listed No [place] Referral(s) Listed Transportation Needs : Family/Friend Is Patient High/Moderate Readmission Risk? : Yes Moderate Readmission Risk - Home, no home health : Make post-discharge physician appointment within 5-7 days of discharge. Patient/Family Notified of Plan : Yes Is Patient Ready for Discharge? : Yes Physician Notified Patient is Ready for Discharge? : Yes Discharge To Care Management : Home/Residential/[facility] or Self Care -01 JACY BONILLA, RN-Care Management - 07/28/2020 12:52 EST Final Narrative Note Final Narrative Note : Orders noted for pt to be discharged home, and noted pt to be released w/HH to provide therapy services. I spoke to pt and he is agreeable and reported he didnt have a preference as to who he wishes his HH agency to be. He was agreeable to [facility] after I informed him they were affiliated w/[facility] and referral sent in [place] No additional needs noted for pt and family transporting pt home JACY BONILLA, RN-Care Management - 07/28/2020 12:52 EST Electronically signed by Tereso, [facility] Conversion Radiation Protection Technician Cerner at 11/12/2022 2:46 PM CDT documented in this encounter Plan of Treatment Not on file documented as of this encounter Visit Diagnoses Not on filedocumented in this encounter
--- OUTSIDE RECORDS SUMMARY | 2025-03-21 11:41 | XMS_ITS | Referral Summary ---
Author Organization [employer] ([place], [place], [place], [place]) Address [address] [place] [id number] Care Team Providers Care Bin Tripper Operator Name Role Phone Unavailable Primary Care Provider [...]
--- OUTSIDE RECORDS SUMMARY | 2025-03-21 11:41 | XMS_ITS | Encounter Summary ---
Author Organization [employer] ([place], [place], [place], [place]) Address [address] [place] [address] Care Team Providers Care Chemist Physical Name Role Phone Unavailable Primary Care Provider Unavailabl e Encounter Details Date Type Department Care Team (Late st Contact Info) Description 07/26/2020 Transcribed Document [facility] [place] Family Medicine [address] [place] [address] ProviderNolan MD [address] [place], [place] [id number] Social History Tobacco Use Types Packs/Day Years Used Date Smoking Tobacco: Never Assessed Sex and Gender Information Value Date Recorded Sex Assigned at Not on file Legal Sex Male 7:15 PM CDT Gender Identity Not on file Sexual Orientation Not on file documented as of this encounter Miscellaneous Notes * Cerner Conversion Note - Historical ProviderMD - 07/26/2020 9:17 AM REPORT MANAGER UM Authorization Entered On: 07/26/2020 9:18 EST Performed On: 07/26/2020 9:17 EST by Lydia Hernandez Rn-Utilization Review Primary Insurance Authorization Authorization and Policy Numbers : Insurance 1 Health Plan: [place] Policy Number: [id number] Authorization Number: Insurance Primary Name : [place] Policy Number: [id number] Authorized Service Begin Date-Primary : 07/25/2020 EST Historical Authorization Comments-Primary : No Authorization Comments Found Lydia Hernandez Rn-Utilization Review - 07/26/2020 9:17 EST Electronically signed by Tereso [facility] Conversion Lead Care Manager Cerner at 11/12/2022 2:43 PM CDT documented in this encounter Plan of Treatment Not on file documented as of this encounter Visit Diagnoses Not on filedocumented in this encounter
--- OUTSIDE RECORDS SUMMARY | 2025-03-21 11:41 | XMS_ITS | Encounter Summary ---
Author Organization [employer] ([place], [place], [place], [place]) Address [address] [place] [address] Care Team Providers Care Biopharmaceutical Rep Name Role Phone Unavailable Primary Care Provider Unavailabl e Encounter Details Date Type Department Care Team (Late st Contact Info) Description 07/28/2020 Transcribed Document [facility] [place] [facility] [address] [place] [address] ProviderNolan MD [address] [place], [place] [id number] Social History Tobacco Use Types Packs/Day Years Used Date Smoking Tobacco: Never Assessed Sex and Gender Information Value Date Recorded Sex Assigned at Not on file Legal Sex Male 7:15 PM CDT Gender Identity Not on file Sexual Orientation Not on file documented as of this encounter Miscellaneous Notes * Cerner Conversion Note - Nolan Reardon MD - 07/28/2020 10:30 AM SLEEVE FIXER Consult to Career Professional Entered On: 07/28/2020 11:33 EST Performed On: 07/28/2020 10:30 EST by Sheila Philippe, RN Consult to Career Professional Modifiable Risk Factors : Smoking Non-Modifiable Risk Factors, Age : Non-Modifiable Risk Factors, Age Age: 59 Years Non-Modifiable Risk Factors, Race : Non-Modifiable Risk Factors, Race Race: White Non-Modifiable Risk Factors, Family History : Non-Modifiable Risk Factors, Family History No Qualifying Results Found Modified Onslow Score : Modified Onslow Scale No qualifying data available. NIH Stroke Scale (Admission) : NIH Stroke Scale (Admission) NIH Scale Score: 2 (07/27/2020 20:00:00) NIH Stroke Scale (Discharge) : NIH Stroke Scale (Discharge) NIH Scale Score: 2 (07/27/2020 20:00:00) Bedside Swallow (FIRE OPERATIONS FORESTER) : Bedside Swallow (FIRE OPERATIONS FORESTER) Swallow Outcome BS Swallow: Intact (07/26/20 15:08:00) Swallow Position BS Swallow: Upright 90 degrees (07/26/20 15:08:00) Head Control BS Swallow: Neutral head position (07/26/20 15:08:00) Trunk Control BS Swallow: Upright centered position (07/26/20 15:08:00) Presentation Style BS Swallow: Self (07/26/20 15:08:00) Consistencies Trialed BS Swallow: Thin by straw, Pudding, Regular solids (07/26/20 15:08:00) Sheila Philippe RN - 07/28/2020 11:33 EST Career Professional Needs Assessment Diagnosis Documented by Provider : Acute Ischemic Stroke Career Professional Consultation Summary : Met with patient to provide stroke education. We discussed stroke types, stroke risk factors, IV tPA and stroke prevention. We reviewed patietns current medicaitons as well as new medications since being hospitalized. I encouraged patient to quit smoking. I encouraged patient to adhere to medication regimen, follow up with recommended providers and monitor blood pressure at home. I provided patient with a stroke education folder which includes handouts on all information discussed as well as my contact information for future needs. I also informed patient of stroke navigator follow up call schedule. Sheila Philippe RN - 07/28/2020 11:33 EST (As Of: 07/28/2020 11:33:11 EST) Problems(Active) At risk for sleep apnea (IMO :[id number] ) Name of Problem: At risk for sleep apnea ; Recorder: SYSTEM, SYSTEM; Confirmation: Confirmed ; Classification: Medical ; Code: [id number] ; Last Updated: 07/25/2020 23:21 EST ; Life Cycle Date: 07/25/2020 ; Life Cycle Status: Active ; Vocabulary: IMO Diagnoses(Active) Altered mental state Date: 07/25/2020 ; Diagnosis Type: Discharge ; Confirmation: Confirmed ; Clinical Dx: Altered mental state ; Classification: Medical ; Clinical Service: Emergency medicine ; Code: ICD-10-CM ; Probability: 0 ; Diagnosis Code: R41.82 Altered mental status Date: 07/25/2020 ; Diagnosis Type: Reason For Visit ; Confirmation: Complaint of ; Clinical Dx: Altered mental status ; Classification: Medical ; Clinical Service: Non-Specified ; Code: PNED ; Probability: 0 ; Diagnosis Code: [id number] Altered mental status Date: 07/25/2020 ; Diagnosis Type: Reason For Visit ; Confirmation: Confirmed ; Clinical Dx: Altered mental status ; Classification: Medical ; Clinical Service: Emergency medicine ; Code: PNED ; Probability: 0 ; Diagnosis Code: [id number] CVA (cerebrovascular accident) Date: 07/25/2020 ; Diagnosis Type: Discharge ; Confirmation: Confirmed ; Clinical Dx: CVA (cerebrovascular accident) ; Classification: Medical ; Clinical Service: Emergency medicine ; Code: ICD-10-CM ; Probability: 0 ; Diagnosis Code: I63.9 Left carotid artery occlusion Date: 07/25/2020 ; Diagnosis Type: Discharge ; Confirmation: Confirmed ; Clinical Dx: Left carotid artery occlusion ; Classification: Medical ; Clinical Service: Emergency medicine ; Code: ICD-10-CM ; Probability: 0 ; Diagnosis Code: I65.22 Medication List (As Of: 07/28/2020 11:33:11 EST) Normal Order nicotine 14 mg/24 hr patch : nicotine 14 mg/24 hr patch ; Status: Ordered ; Ordered As Mnemonic: Habitrol 14 mg/24 hr transdermal film, extended release ; Simple Display Line: 1 Patch, TransDermal, Daily ; Ordering Provider: DELON BAZZI PA-C; Catalog Code: nicotine ; Order Dt/Tm: 07/26/2020 16:04:42 EST ; Comment: Remove Prior Patch before Application - REMOVE before MRI Scanning WASTE: PBKC - BLACK aspirin EC 81 mg tab : aspirin EC 81 mg tab ; Status: Ordered ; Ordered As Mnemonic: aspirin ; Simple Display Line: 81 mg, Oral, Daily ; Ordering Provider: ELISEO STRATTON DO-INT; Catalog Code: aspirin ; Order Dt/Tm: 07/25/2020 22:19:19 EST clopidogrel 75 mg tab : clopidogrel 75 mg tab ; Status: Ordered ; Ordered As Mnemonic: Plavix ; Simple Display Line: 75 mg, Oral, Daily ; Ordering Provider: DELON BAZZI PA-C; Catalog Code: clopidogrel ; Order Dt/Tm: 07/26/2020 08:15:39 EST atorvastatin 40 mg tab : atorvastatin 40 mg tab ; Status: Ordered ; Ordered As Mnemonic: Lipitor ; Simple Display Line: 40 mg, Oral, At Bedtime ; Ordering Provider: ELISEO STRATTON DO-INT; Catalog Code: atorvastatin ; Order Dt/Tm: 07/25/2020 22:19:28 EST hydrALAZINE 20 mg/1 mL inj : hydrALAZINE 20 mg/1 mL inj ; Status: Ordered ; Ordered As Mnemonic: hydrALAZINE ; Simple Display Line: 10 mg, IV Push, Q6H, PRN: Hypertension ; Ordering Provider: ELISEO STRATTON DO-INT; Catalog Code: hydrALAZINE ; Order Dt/Tm: 07/25/2020 22:18:47 EST ; Comment: Antihypertensive - Check BP- Check Pulse Look-Alike/Sound-Alike Alert famotidine 20 mg tab : famotidine 20 mg tab ; Status: Ordered ; Ordered As Mnemonic: Pepcid ; Simple Display Line: 20 mg, Oral, Q12H ; Ordering Provider: ELISEO STRATTON DO-INT; Catalog Code: famotidine ; Order Dt/Tm: 07/25/2020 19:52:07 EST acetaminophen 325 mg tab : acetaminophen 325 mg tab ; Status: Ordered ; Ordered As Mnemonic: Tylenol ; Simple Display Line: 650 mg, Oral, Q4H, PRN: Pain (Mild 1-3) ; Ordering Provider: ELISEO STRATTON DO-INT; Catalog Code: acetaminophen ; Order Dt/Tm: 07/25/2020 19:52:05 EST ; Comment: use as 1st line pain med; max dose of 4000 mg/day acetaminophen 325 mg tab : acetaminophen 325 mg tab ; Status: Ordered ; Ordered As Mnemonic: Tylenol ; Simple Display Line: 650 mg, Oral, Q4H, PRN: Fever ; Ordering Provider: ELISEO STRATTON DO-INT; Catalog Code: acetaminophen ; Order Dt/Tm: 07/25/2020 19:52:07 EST ; Comment: for temp over 101.5 F. Max daily dose 4000 mg albuterol-ipratropium inh 3 mL : albuterol-ipratropium inh 3 mL ; Status: Ordered ; Ordered As Mnemonic: DuoNeb 0.5 mg-2.5 mg/3 mL inhalation solution ; Simple Display Line: 3 mL, Nebulized Inhalation, RT_Q6H, PRN: Shortness of Breath ; Ordering Provider: ELISEO STRATTON DO-INT; Catalog Code: albuterol-ipratropium ; Order Dt/Tm: 07/25/2020 19:52:06 EST bisacodyl EC 5 mg tab : bisacodyl EC 5 mg tab ; Status: Ordered ; Ordered As Mnemonic: Dulcolax Laxative ; Simple Display Line: 5 mg, Oral, Daily, PRN: Constipation ; Ordering Provider: ELISEO STRATTON DO-INT; Catalog Code: bisacodyl ; Order Dt/Tm: 07/25/2020 19:52:06 EST melatonin 3 mg tab : melatonin 3 mg tab ; Status: Ordered ; Ordered As Mnemonic: melatonin ; Simple Display Line: 3 mg, Oral, At Bedtime, PRN: Insomnia ; Ordering Provider: ELISEO STRATTON DO-INT; Catalog Code: melatonin ; Order Dt/Tm: 07/25/2020 19:52:06 EST ondansetron 4 mg/2 mL inj : ondansetron 4 mg/2 mL inj ; Status: Ordered ; Ordered As Mnemonic: Zofran ; Simple Display Line: 4 mg, IV Push, Q4H, PRN: Nausea ; Ordering Provider: ELISEO STRATTON DO-INT; Catalog Code: ondansetron ; Order Dt/Tm: 07/25/2020 19:52:06 EST polyethylene glycol 3350 pwd 17 g pkt : polyethylene glycol 3350 pwd 17 g pkt ; Status: Ordered ; Ordered As Mnemonic: MiraLax ; Simple Display Line: 17 Gram, Oral, Daily, PRN: Constipation ; Ordering Provider: ELISEO STRATTON DO-INT; Catalog Code: polyethylene glycol 3350 ; Order Dt/Tm: 07/25/2020 19:52:06 EST ; Comment: Give with 8 ounces of water Prescription/Discharge Order aspirin : aspirin ; Status: Prescribed ; Ordered As Mnemonic: aspirin 81 mg oral delayed release tablet ; Simple Display Line: 1 Tab, Oral, Daily, 30 Tab, 0 Refill(s) ; Ordering Provider: DELON BAZZI PA-C; Catalog Code: aspirin ; Order Dt/Tm: 07/28/2020 10:45:23 EST atorvastatin : atorvastatin ; Status: Prescribed ; Ordered As Mnemonic: Lipitor 80 mg oral tablet ; Simple Display Line: 1 Tab, Oral, At Bedtime, 30 Tab, 0 Refill(s) ; Ordering Provider: DELON BAZZI PA-C; Catalog Code: atorvastatin ; Order Dt/Tm: 07/28/2020 10:45:23 EST clopidogrel : clopidogrel ; Status: Prescribed ; Ordered As Mnemonic: Plavix 75 mg oral tablet ; Simple Display Line: 1 Tab, Oral, Daily, 30 Tab, 0 Refill(s) ; Ordering Provider: DELON BAZZI PA-C; Catalog Code: clopidogrel ; Order Dt/Tm: 07/28/2020 10:45:23 EST nicotine : nicotine ; Status: Prescribed ; Ordered As Mnemonic: Habitrol 14 mg/24 hr transdermal film, extended release ; Simple Display Line: 1 Patch, TransDermal, Daily, 7 Patch, 0 Refill(s) ; Ordering Provider: DELON BAZZI PA-C; Catalog Code: nicotine ; Order Dt/Tm: 07/28/2020 10:45:09 EST Home Meds clopidogrel : clopidogrel ; Status: Discontinued ; Ordered As Mnemonic: Plavix 75 mg oral tablet ; Simple Display Line: 1 Tab, Oral, Daily, 0 Refill(s) ; Ordering Provider: DELON BAZZI PA-C; Catalog Code: clopidogrel ; Order Dt/Tm: 07/26/2020 09:39:09 EST aspirin : aspirin ; Status: Discontinued ; Ordered As Mnemonic: aspirin 81 mg oral delayed release tablet ; Simple Display Line: 1 Tab, Oral, Daily, 30 Tab, 0 Refill(s) ; Catalog Code: aspirin ; Order Dt/Tm: 07/26/2020 09:38:51 EST atorvastatin : atorvastatin ; Status: Discontinued ; Ordered As Mnemonic: Lipitor 80 mg oral tablet ; Simple Display Line: 1 Tab, Oral, At Bedtime, 0 Refill(s) ; Ordering Provider: DELON BAZZI PA-C; Catalog Code: atorvastatin ; Order Dt/Tm: 07/26/2020 09:38:57 EST Education Topics: Stroke Education (Career Professional) Stroke Education Handouts Given *Q : Yes Sheila Philippe RN - 07/28/2020 11:33 EST Ed-Other Heart Healthy Diet : Verbalizes understanding Antiplatelets/Anticoagulation : Verbalizes understanding Stroke pathophysiology : Verbalizes understanding Previous stroke : Verbalizes understanding Driving after a stroke : Verbalizes understanding Lifestyle changes to prevent a stroke : Verbalizes understanding Smoking Cessation : Verbalizes understanding Hypertension : Verbalizes understanding EMS/911 notification : Verbalizes understanding Warning signs and symptoms of stroke : Verbalizes understanding Hemorrhagic stroke : Verbalizes understanding Intravenous alteplase : Verbalizes understanding Cholesterol lowering information : Verbalizes understanding Dyslipidemia : Verbalizes understanding Sheila Philippe RN - 07/28/2020 11:33 EST Electronically signed by Te[facility] Conversion Fire Prevention Engineer Cerner at 11/12/2022 2:43 PM CDT documented in this encounter Plan of Treatment Not on file documented as of this encounter Visit Diagnoses Not on filedocumented in this encounter
--- OUTSIDE RECORDS SUMMARY | 2025-03-21 11:41 | XMS_ITS | Encounter Summary ---
Author Organization [employer] ([place], [place], [place], [place]) Address [address] [place] [address] Care Team Providers Care Pre Sales Architect Name Role Phone Unavailable Primary Care Provider Unavailabl e Encounter Details Date Type Department Care Team (Late st Contact Info) Description 07/28/2020 Transcribed Document [facility] [place] Family Medicine [address] [place] [address] ProviderNolan MD [address] [place], [place] [id number] Social History Tobacco Use Types Packs/Day Years Used Date Smoking Tobacco: Never Assessed Sex and Gender Information Value Date Recorded Sex Assigned at Not on file Legal Sex Male 7:15 PM CDT Gender Identity Not on file Sexual Orientation Not on file documented as of this encounter Miscellaneous Notes * Cerner Conversion Note - Historical ProviderMD - 07/28/2020 2:00 AM TURKEY EGG GATHERER Rn Operating Room Details Entered On: 07/28/2020 6:38 EST Performed On: 07/28/2020 2:00 EST by Dana Null RN Order Details Transport Mode Order Detail : Wheelchair Isolation Precautions Order Detail : Standard Precautions Order Detail : N/A IV Order Detail : 1 Oxygen Order Detail : 0 Nurse Collect Order Detail : 0 Lift/Transfer : Minimal Central Line Order Detail : No Room Service : Needs Assistance Arterial Line : No Patient Needs Meds Crushed/Liquid : No Dana Null RN - 07/28/2020 6:37 EST documented in this encounter Plan of Treatment Not on file documented as of this encounter Visit Diagnoses Not on filedocumented in this encounter
--- OUTSIDE RECORDS SUMMARY | 2025-03-21 11:41 | XMS_ITS | Encounter Summary ---
Author Organization [employer] ([place], [place], [place], [place]) Address [address] [place] [address] Care Team Providers Care Cage Clerk Name Role Phone Unavailable Primary Care Provider Unavailmeng e Encounter Details Date Type Department Care Team (Late st Contact Info) Description 08/08/2020 Transcribed Document [facility] [place] [address] [place] [address] ProviderNolan MD [address] [place] [address] Social History Tobacco Use Types Packs/Day Years Used Date Smoking Tobacco: Never Assessed Sex and Gender Information Value Date Recorded Sex Assigned at Not on file Legal Sex Male 7:15 PM CDT Gender Identity Not on file Sexual Orientation Not on file documented as of this encounter Miscellaneous Notes * Cerner Conversion Note - Nolan Reardon MD - 08/08/2020 3:21 PM MACHINE STRIPER Discharge Follow Up Phone Call Entered On: 08/08/2020 15:33 EST Performed On: 08/08/2020 15:21 EST by Sheila Philippe RN Discharge Follow Up Phone Call Stroke Discharge Follow Up : Open Third Call Date/Time : 09/29/2020 13:35 EST Emergency Room Visit Since DC : No Did the Nurse Give/Explain Discharge Instructions? : Yes Discharge Instructions Understood? : Yes Medication Discharge Instructions Clear/Understood? : Yes Prescriptions Were Filled Post Discharge : Yes Taking Medications as Prescribed : Yes Pt Experienced Any Side Effects From Abx Or Other Medication : No Follow Up Scheduled With PCP? : Yes Patient Has PCP Contact Info? : Yes Follow Up Scheduled with Specialist? : Yes Patient Has Specialist Contact Info? : Yes Patient Experienced Pain During Visit : No Questions/Concerns At Time Of Phone Call? : No Sheila Philippe RN - 09/29/2020 13:34 EST Discharge Disposition : Discharge To Care Management: Home/Residential/Senior Living or Self Care -01 Sheila Philippe RN - 08/08/2020 15:21 EST Post Visit Phone Call History : First call, Third call Sheila Philippe RN - 08/29/2020 12:12 EST First Call Date/Time : 08/08/2020 15:31 EST Provider Follow-Up Post Discharge : Discharge Follow Up JAMES NEGRO - Within 6 weeks ALIDA RIZO - Within 3 months DALY TAM - Within 5 to 7 days Previously Documented Halfway Patient Stated Goal : No Patient Stated Goal Sheila Philippe RN - 08/08/2020 15:21 EST Post Visit Comments : 7 day/14 day stroke follow up: 08/08 @ 1531: someone answered the phone and then it went to dial tone, no answer, no option to leave voicemail. 30 day stroke follow up: 08/29/20 @ 1212: no answer, left voicemail. 60 day stroke follow up: 09/29 @ 1334: spoke to patients daughter, states the patient is doing okay except for his memory. He is still forgetful. States the patient has comlpetely quit smoking. He is still taking all medications except for the nicotine patch. Pt has HH RN that shayla visits him. He had a follow up appt with neurology but the office cancelled due to weather. She is going to try and get another appt set up. Otherwise, pt is doing well. Sheila Philippe RN - 09/29/2020 13:34 EST Stroke Discharge Follow Up Phone Call Patient Rates The Overall Quality Of Stroke Care Received : A Stroke Discharge Information Packet Helpful? : Yes Sheila Philippe RN - 09/29/2020 13:34 EST documented in this encounter Plan of Treatment Not on file documented as of this encounter Visit Diagnoses Not on filedocumented in this encounter
--- OUTSIDE RECORDS SUMMARY | 2025-03-21 11:41 | XMS_ITS | Encounter Summary ---
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 Role Phone Unavailable Primary Care Provider Unavailabl e Encounter Details Date Type Department Care Team (Late st Contact Info) Description 07/28/2020 Transcribed Document [facility] [place] Family Medicine [address] [place] [address] ProviderNolan MD [address] [place] [address] Social History Tobacco Use Types Packs/Day Years Used Date Smoking Tobacco: Never Assessed Sex and Gender Information Value Date Recorded Sex Assigned at Not on file Legal Sex Male 7:15 PM CDT Gender Identity Not on file Sexual Orientation Not on file documented as of this encounter Miscellaneous Notes * Cerner Conversion Note - Nolan Reardon MD - 07/28/2020 2:33 PM [employer]ER Patient Education Materials Follows:Medicine Bradycardia, Adult Bradycardia is a hdzzps-qrnx-ahkwlc heartbeat. A normal resting heart rate for an adult ranges from 60 to 100 beats per minute. With bradycardia, the resting heart rate is less than 60 beats per minute. Bradycardia can prevent enough oxygen from reaching certain areas of your body when you are active. It can be serious if it keeps enough oxygen from reaching your brain and other parts of your body. Bradycardia is not a problem for everyone. For some healthy adults, a slow resting heart rate is normal. What are the causes? This condition may be caused by: ??? A problem with the heart, including: ? A problem with the heart's electrical system, such as a heart block. With a heart block, electrical signals between the chambers of the heart are partially or completely blocked, so they are not able to work as they should. ? A problem with the heart's natural pacemaker (sinus node). ? Heart disease. ? A heart attack. ? Heart damage. ? Lyme disease. ? A heart infection. ? A heart condition that is present at (congenital heart defect). ??? Certain medicines that treat heart conditions. ??? Certain conditions, such as hypothyroidism and obstructive sleep apnea. ??? Problems with the balance of chemicals and other substances, like potassium, in the blood. ??? Trauma. ??? Radiation therapy. What increases the risk? You are more likely to develop this condition if you: ??? Are age 65 or older. ??? Have high blood pressure (hypertension), high cholesterol (hyperlipidemia), or diabetes. ??? Drink heavily, use tobacco or nicotine products, or use drugs. What are the signs or symptoms? Symptoms of this condition include: ??? Light-headedness. ??? Feeling faint or fainting. ??? Fatigue and weakness. ??? Trouble with activity or exercise. ??? Shortness of breath. ??? Chest pain (angina). ??? Drowsiness. ??? Confusion. ??? Dizziness. How is this diagnosed? This condition may be diagnosed based on: ??? Your symptoms. ??? Your medical history. ??? A physical exam. During the exam, your health care provider will listen to your heartbeat and check your pulse. To confirm the diagnosis, your health care provider may order tests, such as: ??? Blood tests. ??? An electrocardiogram (ECG). This test records the heart's electrical activity. The test can show how fast your heart is beating and whether the heartbeat is steady. ??? A test in which you wear a portable device (event recorder or Holter monitor) to record your heart's electrical activity while you go about your day. ??? An?exercise test. How is this treated? Treatment for this condition depends on the cause of the condition and how severe your symptoms are. Treatment may involve: ??? Treatment of the underlying condition. ??? Changing your medicines or how much medicine you take. ??? Having a small, battery-operated device called a pacemaker implanted under the skin. When bradycardia occurs, this device can be used to increase your heart rate and help your heart beat in a regular rhythm. Follow these instructions at home: Lifestyle ??? Manage any health conditions that contribute to bradycardia as told by your health care provider. ??? Follow a heart-healthy diet. A park services specialist (dietitian) can help educate you about healthy food options and changes. ??? Follow an exercise program that is approved by your health care provider. ??? Maintain a healthy weight. ??? Try to reduce or manage your stress, such as with yoga or meditation. If you need help reducing stress, ask your health care provider. ??? Do not use any products that contain nicotine or tobacco, such as cigarettes, e-cigarettes, and chewing tobacco. If you need help quitting, ask your health care provider. ??? Do not use illegal drugs. ??? Limit alcohol intake to no more than 1 drink a day for non women and 2 drinks a day for men. Be aware of how much alcohol is in your drink. In the [place] one drink equals one 12 oz bottle of beer (355 mL), one 5 oz glass of wine (148 mL), or one 1? oz glass of hard liquor (44 mL). General instructions ??? Take azmk-anb-qlkgphy and prescription medicines only as told by your health care provider. ??? Keep all follow-up visits as told by your health care provider. This is important. How is this prevented? In some cases, bradycardia may be prevented by: ??? Treating underlying medical problems. ??? Stopping behaviors or medicines that can trigger the condition. Contact a health care provider if you: ??? Feel light-headed or dizzy. ??? Almost faint. ??? Feel weak or are easily fatigued during physical activity. ??? Experience confusion or have memory problems. Get help right away if: ??? You faint. ??? You have: ? An irregular heartbeat (palpitations). ? Chest pain. ? Trouble breathing. Summary ??? Bradycardia is a fvpinq-gdec-atwnan heartbeat. With bradycardia, the resting heart rate is less than 60 beats per minute. ??? Treatment for this condition depends on the cause. ??? Manage any health conditions that contribute to bradycardia as told by your health care provider. ??? Do not use any products that contain nicotine or tobacco, such as cigarettes, e-cigarettes, and chewing tobacco, and limit alcohol intake. ??? Keep all follow-up visits as told by your health care provider. This is important. This information is not intended to replace advice given to you by your health care provider. Make sure you discuss any questions you have with your health care provider. Document Released: 04/06/2003 Document Revised: 01/26/2019 Document Reviewed: 12/24/2018 [employer] Patient Education ? 2020 [employer]. Mental and Behavioral Health Coping with Quitting Smoking Quitting smoking is a physical and mental challenge. You will face cravings, withdrawal symptoms, and temptation. Before quitting, work with your health care provider to make a plan that can help you cope. Preparation can help you quit and keep you from giving in. How can I cope with cravings? Cravings usually last for 5?10 minutes. If you get through it, the craving will pass. Consider taking the following actions to help you cope with cravings: ??? Keep your mouth busy: ? Chew sugar-free gum. ? Suck on hard candies or a straw. ? Vance your teeth. ??? Keep your hands and body busy: ? Immediately change to a different activity when you feel a craving. ? Squeeze or play with a ball. ? Do an activity or a hobby, like making bead jewelry, practicing needlepoint, or working with wood. ? Mix up your normal routine. ? Take a short exercise break. Go for a quick walk or run up and down stairs. ? Spend time in public places where smoking is not allowed. ??? Focus on doing something kind or helpful for someone else. ??? Call a friend or family member to talk during a craving. ??? Join a support group. ??? Call a quit line, such as 6-050-OCYE-NOW. ??? Talk with your health care provider about medicines that might help you cope with cravings and make quitting easier for you. How can I deal with withdrawal symptoms? Your body may experience negative effects as it tries to get used to not having nicotine in the system. These effects are called withdrawal symptoms. They may include: ??? Feeling hungrier than normal. ??? Trouble concentrating. ??? Irritability. ??? Trouble sleeping. ??? Feeling depressed. ??? Restlessness and agitation. ??? Craving a cigarette. To manage withdrawal symptoms: ??? Avoid places, people, and activities that trigger your cravings. ??? Remember why you want to quit. ??? Get plenty of sleep. ??? Avoid coffee and other caffeinated drinks. These may worsen some of your symptoms. How can I handle social situations? Social situations can be difficult when you are quitting smoking, especially in the first few weeks. To manage this, you can: ??? Avoid parties, bars, and other social situations where people might be smoking. ??? Avoid alcohol. ??? Leave right away if you have the urge to smoke. ??? Explain to your family and friends that you are quitting smoking. Ask for understanding and support. ??? Plan activities with friends or family where smoking is not an option. What are some ways I can cope with stress? Wanting to smoke may cause stress, and stress can make you want to smoke. Find ways to manage your stress. Relaxation techniques can help. For example: ??? Breathe slowly and deeply, in through your nose and out through your mouth. ??? Listen to soothing, relaxing music. ??? Talk with a family member or friend about your stress. ??? Light a candle. ??? Soak in a bath or take a shower. ??? Think about a peaceful place. What are some ways I can prevent weight gain? Be aware that many people gain weight after they quit smoking. However, not everyone does. To keep from gaining weight, have a plan in place before you quit and stick to the plan after you quit. Your plan should include: ??? Having healthy snacks. When you have a craving, it may help to: ? Eat plain popcorn, crunchy carrots, celery, or other cut vegetables. ? Chew sugar-free gum. ??? Changing how you eat: ? Eat small portion sizes at meals. ? Eat 4?6 small meals throughout the day instead of 1?2 large meals a day. ? Be mindful when you eat. Do not watch television or do other things that might distract you as you eat. ??? Exercising regularly: ? Make time to exercise each day. If you do not have time for a long workout, do short bouts of exercise for 5?10 minutes several times a day. ? Do some form of strengthening exercise, like weight lifting, and some form of aerobic exercise, like running or swimming. ??? Drinking plenty of water or other low-calorie or no-calorie drinks. Drink 6?8 glasses of water daily, or as much as instructed by your health care provider. Summary ??? Quitting smoking is a physical and mental challenge. You will face cravings, withdrawal symptoms, and temptation to smoke again. Preparation can help you as you go through these challenges. ??? You can cope with cravings by keeping your mouth busy (such as by chewing gum), keeping your body and hands busy, and making calls to family, friends, or a helpline for people who want to quit smoking. ??? You can cope with withdrawal symptoms by avoiding places where people smoke, avoiding drinks with caffeine, and getting plenty of rest. ??? Ask your health care provider about the different ways to prevent weight gain, avoid stress, and handle social situations. This information is not intended to replace advice given to you by your health care provider. Make sure you discuss any questions you have with your health care provider. Document Released: 07/12/2017 Document Revised: 06/27/2018 Document Reviewed: 07/12/2017 [employer] Patient Education ? 2020 [employer]. Neurology Ischemic Stroke An ischemic stroke is the sudden of brain tissue. Blood carries oxygen to all areas of the body. This type of stroke happens when your blood does not flow to your brain like normal. Your brain cannot get the oxygen it needs. This is an emergency. It must be treated right away. Symptoms of a stroke usually happen all of a sudden. You may notice them when you wake up. They can include: ??? Weakness or loss of feeling in your face, arm, or leg. This often happens on one side of the body. ??? Trouble walking. ??? Trouble moving your arms or legs. ??? Loss of balance or coordination. ??? Feeling confused. ??? Trouble talking or understanding what people are saying. ??? Slurred speech. ??? Trouble seeing. ??? Seeing two of one object (double vision). ??? Feeling dizzy. ??? Feeling sick to your stomach (nauseous) and throwing up (vomiting). ??? A very bad headache for no reason. Get help as soon as any of these problems start. This is important. Some treatments work better if they are given right away. These include: ??? Aspirin. ??? Medicines to control blood pressure. ??? A shot (injection) of medicine to break up the blood clot. ??? Treatments given in the blood vessel (artery) to take out the clot or break it up. Other treatments may include: ??? Oxygen. ??? Fluids given through an IV tube. ??? Medicines to thin out your blood. ??? Procedures to help your blood flow better. What increases the risk? Certain things may make you more likely to have a stroke. Some of these are things that you can change, such as: ??? Being very overweight (obesity). ??? Smoking. ??? Taking control pills. ??? Not being active. ??? Drinking too much alcohol. ??? Using drugs. Other risk factors include: ??? High blood pressure. ??? High cholesterol. ??? Diabetes. ??? Heart disease. ??? Being , , , or . ??? Being over age 60. ??? Family history of stroke. ??? Having had blood clots, stroke, or warning stroke (transient ischemic attack, TIA) in the past. ??? Sickle cell disease. ??? Being a woman with a history of high blood pressure in (preeclampsia). ??? Migraine headache. ??? Sleep apnea. ??? Having an irregular heartbeat (atrial fibrillation). ??? Long-term (chronic) diseases that cause soreness and swelling (inflammation). ??? Disorders that affect how your blood clots. Follow these instructions at home: Medicines ??? Take xqij-vwb-gysmtfk and prescription medicines only as told by your doctor. ??? If you were told to take aspirin or another medicine to thin your blood, take it exactly as told by your doctor. ? Taking too much of the medicine can cause bleeding. ? If you do not take enough, it may not work as well. ??? Know the side effects of your medicines. If you are taking a blood thinner, make sure you: ? Hold pressure over any cuts for longer than usual. ? Tell your dentist and other doctors that you take this medicine. ? Avoid activities that may cause damage or injury to your body. Eating and drinking ??? Follow instructions from your doctor about what you cannot eat or drink. ??? Eat healthy foods. ??? If you have trouble with swallowing, do these things to avoid choking: ? Take small bites when eating. ? Eat foods that are soft or pureed. Safety ??? Follow instructions from your health care team about physical activity. ??? Use a walker or cane as told by your doctor. ??? Keep your home safe so you do not fall. This may include: ? Having experts look at your home to make sure it is safe. ? Putting grab bars in the bedroom and bathroom. ? Using raised toilets. ? Putting a seat in the shower. General instructions ??? Do not use any tobacco products. ? Examples of these are cigarettes, chewing tobacco, and e-cigarettes. ? If you need help quitting, ask your doctor. ??? Limit how much alcohol you drink. This means no more than 1 drink a day for non women and 2 drinks a day for men. One drink equals 12 oz of beer, 5 oz of wine, or 1? oz of hard liquor. ??? If you need help to stop using drugs or alcohol, ask your doctor to refer you to a program or specialist. ??? Stay active. Exercise as told by your doctor. ??? Keep all follow-up visits as told by your doctor. This is important. Get help right away if: ??? You have any signs of a stroke. BE FAST is an easy way to remember the main warning signs: ? B - Balance. Signs are dizziness, sudden trouble walking, or loss of balance. ? E - Eyes. Signs are trouble seeing or a change in how you see. ? F - Face. Signs are sudden weakness or loss of feeling of the face, or the face or eyelid drooping on one side. ? A - Arms. Signs are weakness or loss of feeling in an arm. This happens suddenly and usually on one side of the body. ? S - Speech. Signs are sudden trouble speaking, slurred speech, or trouble understanding what people say. ? T - Time. Time to call emergency services. Write down what time symptoms started. ??? You have other signs of a stroke, such as: ? A sudden, very bad headache with no known cause. ? Feeling sick to your stomach (nausea). ? Throwing up (vomiting). ? Jerky movements you cannot control (seizure). These symptoms may be an emergency. Do not wait to see if the symptoms will go away. Get medical help right away. Call your local emergency services (911 in the [place] Do not drive yourself to the hospital. Summary ??? An ischemic stroke is the sudden of brain tissue. ??? Symptoms of a stroke usually happen all of a sudden. You may notice them when you wake up. ??? Get help if you have any warning signs of a stroke. This is important. Some treatments work better if they are given right away. This information is not intended to replace advice given to you by your health care provider. Make sure you discuss any questions you have with your health care provider. Document Released: 07/03/2012 Document Revised: 12/24/2018 Document Reviewed: 10/10/2016 [employer]domain Patient Education ? 2020 [employer]. Stroke Prevention Some medical conditions and behaviors [...] lot or have excessive sleepiness. ??? Take ebcl-ajr-wgytwjk and prescription medicines only as told by [...] more information For more information, visit: ??? [place] [employer] Association: www.strokeassociation.org ??? National Stroke Association: [...] 08/22/2005 Document Revised: 06/27/2018 Document Reviewed: 08/20/2017 [employer]domain Patient Education ? 2020 [employer]. Carotid Artery Disease The carotid arteries are arteries on both sides of the neck. They carry blood to the brain, face, and neck. Carotid artery disease happens when these arteries become smaller (narrow) or get blocked. If these arteries become smaller or get blocked, you are more likely to have a stroke or a warning stroke (transient ischemic attack). Follow these instructions at home: ??? Take nsrc-fti-kizfyrm and prescription medicines only as told by your doctor. ??? Make sure you understand all instructions about your medicines. Do not stop taking your medicines without talking to your doctor first. ??? Follow your doctor's diet instructions. It is important to follow a healthy diet. ? Eat foods that include plenty of: ? Fresh fruits. ? Vegetables. ? Lean meats. ? Avoid these foods: ? Foods that are high in fat. ? Foods that are high in salt (sodium). ? Foods that are fried. ? Foods that are processed. ? Foods that have few good nutrients (poor nutritional value). ??? Keep a healthy weight. ??? Stay active. Get at least 30 minutes of activity every day. ??? Do not smoke. ??? Limit alcohol use to: ? No more than 2 drinks a day for men. ? No more than 1 drink a day for women who are not . ??? Do not use illegal drugs. ??? Keep all follow-up visits as told by your doctor. This is important. Contact a doctor if: Get help right away if: ??? You have any symptoms of stroke or TIA. The acronym BEFAST is an easy way to remember the main warning signs of stroke. ? B = Balance problems. Signs include dizziness, sudden trouble walking, or loss of balance ? E = Eye problems. This includes trouble seeing or a sudden change in vision. ? F = Face changes. This includes sudden weakness or numbness of the face, or the face or eyelid drooping to one side. ? A = Arm weakness or numbness. This happens suddenly and usually on one side of the body. ? S = Speech problems. This includes trouble speaking or trouble understanding. ? T = Time. Time to call 911 or seek emergency care. Do not wait to see if symptoms go away. Make note of the time your symptoms started. ??? Other signs of stroke may include: ? A sudden, severe headache with no known cause. ? Feeling sick to your stomach (nauseous) or throwing up (vomiting). ? Seizure. Call your local emergency services (911 in [place] Do not?drive yourself to the clinic or hospital. Summary ??? The carotid arteries are arteries on both sides of the neck. ??? If these arteries get smaller or get blocked, you are more likely to have a stroke or a warning stroke (transient ischemic attack). ??? Take jgcn-fns-msyxwob and prescription medicines only as told by your doctor. ??? Keep all follow-up visits as told by your doctor. This is important. This information is not intended to replace advice given to you by your health care provider. Make sure you discuss any questions you have with your health care provider. Document Released: 07/01/2013 Document Revised: 07/10/2018 Document Reviewed: 07/10/2018 [employer]domain Patient Education ? 2020 [employer]. Aphasia Aphasia is a language disorder that affects the part of your brain that you use to communicate. Aphasia does not affect your intelligence, but you may have trouble: ??? Speaking. ??? Understanding speech. ??? Reading. ??? Writing. Some people with aphasia may also have trouble with memory or attention. Aphasia can happen to anyone at any age, but it is most common in older adults. What are the causes? This condition is caused by damage to the language centers of the brain. Damage may be caused by: ??? Stroke. This causes a disruption of blood flow to certain areas of the brain. Stroke is the most common cause of aphasia. ??? Traumatic brain injury (TBI). ??? Brain tumor. ??? Infection of the brain tissues. ??? Nervous system disease that gradually gets worse (progressiveneurological disorder), such as dementia or multiple sclerosis (MS). ??? Brain surgery. What are the signs or symptoms? Symptoms of this condition include: ??? Trouble finding the right words. ??? Difficulty expressing thoughts and needs through speech. ??? Using the wrong words, nonsense words, or jargon. ??? Talking in sentences that do not make sense or that are not grammatically correct. ??? Being unable to repeat back words and phrases. ??? Difficulty expressing ideas through writing. ??? Difficulty comprehending when reading. ??? Being unable to understand other people's speech. ??? Having trouble understanding numbers. The condition affects people differently. Symptoms may start suddenly or come on gradually, depending on the underlying cause. How is this diagnosed? This condition may be diagnosed based on a screening of your ability to communicate as soon as symptoms start, or are medically stable after a stroke or brain injury. Later, a more comprehensive assessment may be conducted either in the hospital or rehabilitation center. The assessment may test your ability to: ??? Use speech to communicate your personal needs. ??? Use muscles in your mouth and throat for speaking and swallowing. ??? Express ideas with speech or other means of communication, such as hand gestures. ??? Make conversation with others across a variety of topics. ??? Hear and understand speech. ??? Understand and produce written material. ??? Manage memory and attention associated with communication. How is this treated? Treatment for this condition depends on your needs and abilities. The goal is to help restore your ability to communicate or find ways to manage communication challenges. Common treatments include: ??? Speech-language therapy. Part of this may include: ? Re-building intonation, sentence structure, and vocabulary. ? Learning other ways to communicate, such as using word books, communication boards, or special software programs. ? Learning to communicate with writing, sign language, or hand gestures. ? Using a combination of methods to communicate. ??? Working with family members. This may include: ? Learning ways to communicate. ? Emotional support. ??? Support groups. ??? Occupational therapy. This can help to find devices to assist with daily living activities. Treatment usually begins as soon as possible. It may begin while you are in the hospital and continue in a rehabilitation center or at home. In some cases, aphasia may improve quickly on its own. In other cases, recovery occurs more slowly over time. Follow these instructions at home: ??? Keep all follow-up visits as told by your health care provider. This is important. ??? Make sure you have a good support system at home. ??? Find a support group. This can help you connect with others who are going through the same thing. ??? Try the following tips while communicating: ? Use short, simple sentences. Ask family members to do the same. Sentences that require one-word or short answers are easiest. ? Avoid distractions like background noise when trying to listen or talk. ? Try communicating with gestures, pointing, writing, or drawing. ? Talk slowly. Ask family members to talk to you slowly. ? Maintain eye contact when communicating. Ask family members to do the same when communicating with you. ? Ask family members to give you time to respond or to engage in conversation with them. Contact a health care provider if: ??? Your symptoms change or get worse. ??? You are struggling with anxiety or depression. Get help right away if you have: ??? Any symptoms of a stroke. BE FAST is an easy way to remember the main warning signs of a stroke: ? B - Balance. Signs are dizziness, sudden trouble walking, or loss of balance. ? E - Eyes. Signs are trouble seeing or a sudden change in vision. ? F - Face. Signs are a sudden weakness or numbness of the face, or the face or eyelid drooping on one side. ? A - Arms. Signs are weakness or numbness in an arm. This happens suddenly and usually on one side of the body. ? S - Speech. Signs are sudden trouble speaking, slurred speech, or trouble understanding what people say. ? T - Time. Time to call emergency service. Write down what time symptoms started. ??? Other signs of a stroke, such as: ? A sudden, severe headache with no known cause. ? Nausea or vomiting. ? Seizure. Summary ??? Aphasia is a language disorder that results from damage to the part of your brain that helps you use language to communicate. Aphasia does not affect your intelligence, but may cause difficulty with speech, writing, reading, or understanding others. ??? In some cases, aphasia may improve quickly on its own. In other cases, recovery occurs more slowly over time. ??? Get help right away if you have symptoms of a stroke. This information is not intended to replace advice given to you by your health care provider. Make sure you discuss any questions you have with your health care provider. Document Released: 04/06/2003 Document Revised: 08/15/2018 Document Reviewed: 08/12/2018 [employer] Patient Education ? 2020 [employer] Nutrition Fat and Cholesterol Restricted Eating Plan Getting too much fat and cholesterol in your diet may cause health problems. Choosing the right foods helps keep your fat and cholesterol at normal levels. This can keep you from getting certain diseases. Your doctor may recommend an eating plan that includes: ??? Total fat: % or less of total calories a day. ??? Saturated fat: % or less of total calories a day. ??? Cholesterol: less than mg a day. ??? Fiber: g a day. What are tips for following this plan? Meal planning ??? At meals, divide your plate into four equal parts: ? Fill one-half of your plate with vegetables and green salads. ? Fill one-fourth of your plate with whole grains. ? Fill one-fourth of your plate with low-fat (lean) protein foods. ??? Eat fish that is high in omega-3 fats at least two times a week. This includes mackerel, tuna, sardines, and salmon. ??? Eat foods that are high in fiber, such as whole grains, beans, apples, broccoli, carrots, peas, and barley. General tips ??? Work with your doctor to lose weight if you need to. ??? Avoid: ? Foods with added sugar. ? Fried foods. ? Foods with partially hydrogenated oils. ??? Limit alcohol intake to no more than 1 drink a day for non women and 2 drinks a day for men. One drink equals 12 oz of beer, 5 oz of wine, or 1? oz of hard liquor. Reading food labels ??? Check food labels for: ? Trans fats. ? Partially hydrogenated oils. ? Saturated fat (g) in each serving. ? Cholesterol (mg) in each serving. ? Fiber (g) in each serving. ??? Choose foods with healthy fats, such as: ? Monounsaturated fats. ? Polyunsaturated fats. ? [place]-3 fats. ??? Choose grain products that have whole grains. Look for the word whole as the first word in the ingredient list. Cooking ??? Cook foods using low-fat methods. These include baking, boiling, grilling, and broiling. ??? Eat more home-cooked foods. Eat at restaurants and buffets less often. ??? Avoid cooking using saturated fats, such as butter, cream, palm oil, palm kernel oil, and coconut oil. Recommended foods Fruits ??? All fresh, canned (in natural juice), or frozen fruits. Vegetables ??? Fresh or frozen vegetables (raw, steamed, roasted, or grilled). Green salads. Grains ??? Whole grains, such as whole wheat or whole grain breads, crackers, cereals, and pasta. Unsweetened oatmeal, bulgur, barley, quinoa, or brown rice. [place] or whole wheat flour tortillas. Meats and other protein foods ??? Ground beef (85% or leaner), grass-fed beef, or beef trimmed of fat. Skinless chicken or turkey. Ground chicken or turkey. Pork trimmed of fat. All fish and seafood. Egg whites. Dried beans, peas, or lentils. Unsalted nuts or seeds. Unsalted canned beans. Nut butters without added sugar or oil. Dairy ??? Low-fat or nonfat dairy products, such as skim or 1% milk, 2% or reduced-fat cheeses, low-fat and fat-free ricotta or cottage cheese, or plain low-fat and nonfat yogurt. Fats and oils ??? Tub margarine without trans fats. Light or reduced-fat mayonnaise and salad dressings. Avocado. [place], canola, sesame, or safflower oils. The items listed above may not be a complete list of foods and beverages you can eat. Contact a dietitian for more information. Foods to avoid Fruits ??? Canned fruit in heavy syrup. Fruit in cream or butter sauce. Fried fruit. Vegetables ??? Vegetables cooked in cheese, cream, or butter sauce. Fried vegetables. Grains ??? White bread. White pasta. White rice. Cornbread. Bagels, pastries, and croissants. Crackers and snack foods that contain trans fat and hydrogenated oils. Meats and other protein foods ??? Fatty cuts of meat. Ribs, chicken wings, arenas, sausage, bologna, salami, chitterlings, fatback, hot dogs, bratwurst, and packaged lunch meats. Liver and organ meats. Whole eggs and egg yolks. Chicken and turkey with skin. Fried meat. Dairy ??? Whole or 2% milk, cream, qnxg-fyv-hauh, and cream cheese. Whole milk cheeses. Whole-fat or sweetened yogurt. Full-fat cheeses. Nondairy creamers and whipped toppings. Processed cheese, cheese spreads, and cheese curds. Beverages ??? Alcohol. Sugar-sweetened drinks such as sodas, lemonade, and fruit drinks. Fats and oils ??? Butter, stick margarine, lard, shortening, ghee, or arenas fat. Coconut, palm kernel, and palm oils. Sweets and desserts ??? [place] syrup, sugars, honey, and molasses. Candy. Jam and jelly. Syrup. Sweetened cereals. Cookies, pies, cakes, donuts, muffins, and ice cream. The items listed above may not be a complete list of foods and beverages you should avoid. Contact a dietitian for more information. Summary ??? Choosing the right foods helps keep your fat and cholesterol at normal levels. This can keep you from getting certain diseases. ??? At meals, fill one-half of your plate with vegetables and green salads. ??? Eat high-fiber foods, like whole grains, beans, apples, carrots, peas, and barley. ??? Limit added sugar, saturated fats, alcohol, and fried foods. This information is not intended to replace advice given to you by your health care provider. Make sure you discuss any questions you have with your health care provider. Document Released: 01/13/2013 Document Revised: 03/18/2019 Document Reviewed: 04/01/2018 [employer] Patient Education ? 2020 [employer] Procedures Carotid Endarterectomy A carotid endarterectomy is a surgery to remove a blockage in the carotid arteries. The carotid arteries are the large blood vessels on both sides of the neck that supply blood to the brain. Carotid artery disease, also called carotid artery stenosis, is the narrowing or blockage of one or both carotid arteries. Carotid artery disease is usually caused by atherosclerosis, which is a buildup of fat and plaque in the arteries. Some buildup of plaque normally occurs with aging. The plaque may partially or totally block blood flow or cause a clot to form in the carotid arteries. This may cause a stroke. Tell a health care provider about: ??? Any allergies you have. ??? All medicines you are taking, including vitamins, herbs, eye drops, creams, and nlsy-fgj-msrjiin medicines. ??? Any problems you or family members have had with anesthetic medicines. ??? Any blood disorders you have. ??? Any surgeries you have had. ??? Any medical conditions you have, or have had, including diabetes, kidney problems, and infections. ??? Whether you are or may be . What are the risks? Generally, this is a safe procedure. However, problems may occur, including: ??? Infection. ??? Bleeding. ??? Blood clots. ??? Allergic reactions to medicines. ??? Damage to nerves near the carotid arteries. This can cause a hoarse voice or weakness of muscles in your face. ??? Stroke. ??? Seizures. ??? Heart attack (myocardial infarction). ??? Narrowing of the opened blood vessel (restenosis). This may require another surgery. What happens before the procedure? Staying hydrated Follow instructions from your health care provider about hydration, which may include: ??? Up to 2 hours before the procedure ? you may continue to drink clear liquids, such as water, clear fruit juice, black coffee, and plain tea. Eating and drinking restrictions Follow instructions from your health care provider about eating and drinking, which may include: ??? 8 hours before the procedure ? stop eating heavy meals or foods, such as meat, fried foods, or fatty foods. ??? 6 hours before the procedure ? stop eating light meals or foods, such as toast or cereal. ??? 6 hours before the procedure ? stop drinking milk or drinks that contain milk. ??? 2 hours before the procedure ? stop drinking clear liquids. Medicines ??? Ask your health care provider about: ? Changing or stopping your regular medicines. This is especially important if you are taking diabetes medicines or blood thinners. ? Taking medicines such as aspirin and ibuprofen. These medicines can thin your blood. Do not take these medicines unless your health care provider tells you to take them. ? Taking pofz-aoq-eancyrv medicines, vitamins, herbs, and supplements. General instructions ??? Do not use any products that contain nicotine or tobacco for at least 4?6 weeks, or as soon as possible, before the procedure. These products include cigarettes, e-cigarettes, and chewing tobacco. If you need help quitting, ask your health care provider. ??? You may need to have blood tests, a test to check heart rhythm (electrocardiogram), or a test to check blood flow (angiogram). ??? Plan to have someone take you home from the hospital or clinic. ??? Ask your health care provider: ? How your surgery site will be marked. ? What steps will be taken to help prevent infection. These may include: ? Removing hair at the surgery site. ? Washing skin with a germ-killing soap. ? Taking antibiotic medicine. What happens during the procedure? An IV will be inserted into one of your veins. ??? You will be given one or more of the following: ? A medicine to help you relax (sedative). ? A medicine to make you fall asleep (general anesthetic). ??? The surgeon will make a small incision in your neck to expose the carotid artery. ??? A tube may be inserted into the carotid artery above and below the blockage. This tube will allow blood to flow around the blockage during the surgery. ??? An incision will be made in the carotid artery at the location of the blockage. ??? The blockage will be removed. In some cases, a section of the carotid artery may be removed and a graft patch may be used to repair the artery. ??? The carotid artery will be closed with stitches (sutures). ??? If a tube was inserted into the artery to allow blood flow around the blockage during surgery, the tube will be removed. Once the tube is removed, blood flow through the carotid artery will be restored. ??? The incision in the neck will be closed with sutures. ??? A bandage (dressing) will be placed over your incision. The procedure may vary among health care providers and hospitals. What happens after the procedure? Your blood pressure, heart rate, breathing rate, and blood oxygen level will be monitored until you leave the hospital or clinic. ??? You may have some pain or an ache in your neck for about 2 weeks. This is normal. ??? Do not drive for 24 hours if you were given a sedative during your procedure. Summary ??? A carotid endarterectomy is a surgery to remove a blockage in the carotid arteries. ??? The carotid arteries are the large blood vessels on both sides of the neck that supply blood to the brain. ??? Before the procedure, ask your health care provider about changing or stopping your regular medicines. ??? Follow instructions from your health care provider about eating and drinking before the procedure. ??? After the procedure, do not drive for 24 hours if you were given a sedative. This information is not intended to replace advice given to you by your health care provider. Make sure you discuss any questions you have with your health care provider. Document Released: 03/17/2014 Document Revised: 03/24/2019 Document Reviewed: 03/24/2019 [employer] Patient Education ? 2020 [employer] Pulmonary Medicine Steps to Quit Smoking Smoking tobacco is the leading cause of preventable . It can affect almost every organ in the body. Smoking puts you and those around you at risk for developing many serious chronic diseases. Quitting smoking can be difficult, but it is one of the best things that you can do for your health. It is never too late to quit. How do I get ready to quit? When you decide to quit smoking, create a plan to help you succeed. Before you quit: ??? Pick a date to quit. Set a date within the next 2 weeks to give you time to prepare. ??? Write down the reasons why you are quitting. Keep this list in places where you will see it often. ??? Tell your family, friends, and co-workers that you are quitting. Support from your loved ones can make quitting easier. ??? Talk with your health care provider about your options for quitting smoking. ??? Find out what treatment options are covered by your health insurance. ??? Identify people, places, things, and activities that make you want to smoke (triggers). Avoid them. What first steps can I take to quit smoking? Throw away all cigarettes at home, at work, and in your car. ??? Throw away smoking accessories, such as ashtrays and lighters. ??? Clean your car. Make sure to empty the ashtray. ??? Clean your home, including curtains and carpets. What strategies can I use to quit smoking? Talk with your health care provider about combining strategies, such as taking medicines while you are also receiving in-person counseling. Using these two strategies together makes you more likely to succeed in quitting than if you used either strategy on its own. ??? If you are or , talk with your health care provider about finding counseling or other support strategies to quit smoking. Do not take medicine to help you quit smoking unless your health care provider tells you to do so. To quit smoking: Quit right away ??? Quit smoking completely, instead of gradually reducing how much you smoke over a period of time. Research shows that stopping smoking right away is more successful than gradually quitting. ??? Attend in-person counseling to help you build problem-solving skills. You are more likely to succeed in quitting if you attend counseling sessions regularly. Even short sessions of 10 minutes can be effective. Take medicine You may take medicines to help you quit smoking. Some medicines require a prescription and some you can purchase spak-tyx-iuzieas. Medicines may have nicotine in them to replace the nicotine in cigarettes. Medicines may: ??? Help to stop cravings. ??? Help to relieve withdrawal symptoms. Your health care provider may recommend: ??? Nicotine patches, gum, or lozenges. ??? Nicotine inhalers or sprays. ??? Non-nicotine medicine that is taken by mouth. Find resources Find resources and support systems that can help you to quit smoking and remain smoke-free after you quit. These resources are most helpful when you use them often. They include: ??? Online chats with a counselor. ??? Telephone quitlines. ??? Printed self-help materials. ??? Support groups or group counseling. ??? Text messaging programs. ??? Mobile phone apps or applications. Use apps that can help you stick to your quit plan by providing reminders, tips, and encouragement. There are many free apps for mobile devices as well as websites. Examples include Quit Guide from the CDC and smokefree.gov What things can I do to make it easier to quit? Reach out to your family and friends for support and encouragement. Call telephone quitlines (3-608-ETTU-NOW), reach out to support groups, or work with a counselor for support. ??? Ask people who smoke to avoid smoking around you. ??? Avoid places that trigger you to smoke, such as bars, parties, or smoke-break areas at work. ??? Spend time with people who do not smoke. ??? Lessen the stress in your life. Stress can be a smoking trigger for some people. To lessen stress, try: ? Exercising regularly. ? Doing deep-breathing exercises. ? Doing yoga. ? Meditating. ? Performing a body scan. This involves closing your eyes, scanning your body from head to toe, and noticing which parts of your body are particularly tense. Try to relax the muscles in those areas. How will I feel when I quit smoking? Day 1 to 3 weeks Within the first 24 hours of quitting smoking, you may start to feel withdrawal symptoms. These symptoms are usually most noticeable 2?3 days after quitting, but they usually do not last for more than 2?3 weeks. You may experience these symptoms: ??? Mood swings. ??? Restlessness, anxiety, or irritability. ??? Trouble concentrating. ??? Dizziness. ??? Strong cravings for sugary foods and nicotine. ??? Mild weight gain. ??? Constipation. ??? Nausea. ??? Coughing or a sore throat. ??? Changes in how the medicines that you take for unrelated issues work in your body. ??? Depression. ??? Trouble sleeping (insomnia). Week 3 and afterward After the first 2?3 weeks of quitting, you may start to notice more positive results, such as: ??? Improved sense of smell and taste. ??? Decreased coughing and sore throat. ??? Slower heart rate. ??? Lower blood pressure. ??? Clearer skin. ??? The ability to breathe more easily. ??? Fewer sick days. Quitting smoking can be very challenging. Do not get discouraged if you are not successful the first time. Some people need to make many attempts to quit before they achieve long-term success. Do your best to stick to your quit plan, and talk with your health care provider if you have any questions or concerns. Summary ??? Smoking tobacco is the leading cause of preventable . Quitting smoking is one of the best things that you can do for your health. ??? When you decide to quit smoking, create a plan to help you succeed. ??? Quit smoking right away, not slowly over a period of time. ??? When you start quitting, seek help from your health care provider, family, or friends. This information is not intended to replace advice given to you by your health care provider. Make sure you discuss any questions you have with your health care provider. Document Released: 07/09/2002 Document Revised: 10/02/2019 Document Reviewed: 10/03/2019 [employer] Patient Education ? 2020 [employer] documented in this encounter Plan of Treatment Not on file documented as of this encounter Visit Diagnoses Not on filedocumented in this encounter
--- OUTSIDE RECORDS SUMMARY | 2025-03-21 11:41 | XMS_ITS | Encounter Summary ---
Author Organization [employer] ([place], [place], [place], [place]) Address [address] [place] [address] Care Team Providers Care Cafeteria Operator Name Role Phone Unavailable Primary Care Provider Unavailabl e Encounter Details Date Type Department Care Team (Late st Contact Info) Description 07/26/2020 Transcribed Document [facility] [place] [place] Family Medicine [address] [place] [address] ProviderNolan MD [address] [place] [address] Social History Tobacco Use Types Packs/Day Years Used Date Smoking Tobacco: Never Assessed Sex and Gender Information Value Date Recorded Sex Assigned at Not on file Legal Sex Male 7:15 PM CDT Gender Identity Not on file Sexual Orientation Not on file documented as of this encounter Miscellaneous Notes * Cerner Conversion Note - Nolan ProviderMD - 07/26/2020 1:49 PM HIDE TANNER Evaluation, Physical Therapy Entered On: 07/27/2020 11:58 EST Performed On: 07/27/2020 11:26 EST by SAGE SEPULVEDA, PT General Information, PT Therapy Diagnosis, PT : assessment for need for skilled PTx after CVA -- NONE at this time Onset of Problem, PT : 07/25/2020 EST General Information Comment, PT : 59 yo male adm to [facility] 07/25 for CVA estimated to have occured approx 07/16 with pt not coming to ED until now with c/o confusion and aphasia PMHx significant for 100% L Carotid Blockage ( told at [facility], pt left AMA reportedly SAGE SEPULVEDA, PT - 07/27/2020 16:25 EST Visit Type, PT : Initial evaluation Patient Orders : Order Date Order Ordering 07/26/2020 13:49 PT Evaluation and Treatment Ordered By: ENOC RANKIN MD-DEBBIE Active Diagnoses : 07/25/2020 12:00 Altered mental status 07/25/2020 12:00 Altered mental status, unspecified 07/25/2020 12:00 Cerebral infarction, unspecified 07/25/2020 12:00 Occlusion and stenosis of left carotid artery Admission Date : 07/27/2020 10:41 Personal Devices : Personal Devices No Devices Recorded Assistive Devices : Assistive Devices No Devices Recorded SAGE SEPULVEDA PT - 07/27/2020 11:58 EST General Status Patient Received Status : Supine in bed Treatment Start Time : 07/27/2020 11:06 EST Patient Left Status : Supine in bed, RN/PCT informed, Communication board completed, All needs met and within reach RN/PCT Informed Comment : yes per MERCEDES Irwin Treatment End Time : 07/27/2020 11:23 EST Treatment Time : 17 Minute(s) Actual Treatment Time : 17 Minute(s) SAGE SEPULVEDA, PT - 07/27/2020 16:25 EST History and Environment Living Situation, Therapy : Home Patient Lives With : Spouse Persons Assisting Patient at Home : Alone Professional Skilled Services : None Persons Providing Information : Patient Home Equipment Therapy, PT : None Home Setup : One story Bedroom Location : Main level Bathroom #1 Location : Main level Bathroom #1 Features : Toilet, Tub/Shower Stairs : Yes Stair Location(s) : Outside Outside Stairs, Number of Steps : 2 Railing Outside : Yes Outside Railing Position : Left, going up Ramp : No SAGE SEPULVEDA, PT - 07/27/2020 16:25 EST Prior Level of Function PT GRID Prior LOF Ambulation, Household : Independent Prior LOF Ambulation, Community : Independent Prior LOF Bed Mobility : Independent Prior LOF Toileting : Independent Prior LOF Transfer : Independent SAGE SEPULVEDA, PT - 07/27/2020 16:25 EST Upper Extremity Right UE Active ROM : WFL Right UE Strength : WFL Left UE Active ROM : WFL Left UE Strength : WFL SAGE SEPULVEDA, PT - 07/27/2020 16:25 EST Lower Extremity RLE Active ROM : WFL Right LE Strength : WFL LLE Active ROM : WFL Left LE Strength : WFL SAGE SEPULVEDA, PT - 07/27/2020 16:25 EST Functional Mobility Mobility Grid Bed Roll Left : Rehab Complete independence Bed Roll Right : Rehab Complete independence Bed Scooting : Rehab Complete independence Supine to Sit : Rehab Complete independence Sit to Stand : Rehab Complete independence Stand to Sit : Rehab Complete independence Sit to Supine : Rehab Complete independence SAGE SEPULVEDA, PT - 07/27/2020 16:25 EST Gait Training/Assessment, PT Weight Bearing Status : Full Gait Assistance Level : Independent, complete Walking Distance : >400 ft Ambulatory Devices : None, Gait belt Gait Deviations : No Gait Training Comment : NO LOB noted COCO SAGE, PT - 07/27/2020 16:25 EST Cognition Assessment, PT Orientation : Not oriented to time Cognition Assessment Comment : aphasia gave pt issues with giving year Safety/Judgment Comment : good Follows Basic Command Assessment : yes Attention Assessment : Present SAGE SEPULVEDA, PT - 07/27/2020 16:25 EST Edu Topics Physical Therapy Education Grid Balance Training : Returns demonstration Bed Mobility Training : Returns demonstration Gait Training : Returns demonstration Role of Physical Therapy : Verbalizes understanding Safety : Returns demonstration Transfer Training : Returns demonstration COCO SAGE, PT - 07/27/2020 16:25 EST Indication Assesessment, PT Physical Therapy Indicated : No Physical Therapy Not Indicated : Independent, complete, Prior level of function Potential Barriers To Therapy : None evident Rehabilitation Potential : At prior level of function SAGE SEPULVEDA, PT - 07/27/2020 16:25 EST Plan of Care, PT PT Tx Plan/Goals Established w Patient : No Reason Tx/Plan Not Established W/ Pt PT : no skilleed PTx needs at this time SAGE SEPULVEDA, PT - 07/27/2020 16:25 EST Treatment Note Subjective Comment : agreed to PTx Patient's Response to Treatment : good Assessment : good effort, demo'd completely independent mobility this AM safe amb with NO LOB no PTx skilled needs identified at this time Plan for Treatment : EVAL ONLY COMPLETELY INDEPENDENT likely good candidate for OUT Pt SPEECH THERAPY SAGE SEPULVEDA, PT - 07/27/2020 16:25 EST Pain Assessment Pain Scaled Used : 0-10 Pain scale Pain Score Pre-Intervention : 0 SAGE SEPULVEDA, PT - 07/27/2020 16:25 EST Image 1 - Images currently included in the form version of this document have not been included in the text rendition version of the form. Anticipated Discharge Needs, OT/PT Anticipated Discharge to : Home, with family care Anticipated Home Equipment : None Recommend Continued Therapy at Discharge : No SAGE SEPULVEDA PT - 07/27/2020 16:25 EST [place] PT Charges PT Eval Low Complexity : 1 SAGE SEPULVEDA, PT - 07/27/2020 16:25 EST Electronically signed by [facility], [facility] Conversion Pressing Machine Tender Cerner at 11/12/2022 2:44 PM CDT documented in this encounter Plan of Treatment Not on file documented as of this encounter Visit Diagnoses Not on filedocumented in this encounter
--- OUTSIDE RECORDS SUMMARY | 2025-03-21 11:41 | XMS_ITS | Encounter Summary ---
Author Organization [employer] ([place], [place], [place], [place]) Address [address] [place] [address] Care Team Providers Care Railway Shunter Name Role Phone Unavailable Primary Care Provider Unavailabl e Encounter Details Date Type Department Care Team (Late st Contact Info) Description 07/28/2020 Transcribed Document [facility] Family Medicine [address] [place] [address] ProviderNolan MD [address] [place], [place] [id number] Social History Tobacco Use Types Packs/Day Years Used Date Smoking Tobacco: Never Assessed Sex and Gender Information Value Date Recorded Sex Assigned at Not on file Legal Sex Male 7:15 PM CDT Gender Identity Not on file Sexual Orientation Not on file documented as of this encounter Miscellaneous Notes * Cerner Conversion Note - Historical ProviderMD - 07/28/2020 5:21 AM MOCK UP MAKER Event Note Entered On: 07/28/2020 5:22 EST Performed On: 07/28/2020 5:21 EST by Dana Null RN Event Note Event Date/Time : 07/28/2020 5:21 EST Description of Event : Pt HR remains Sinus Ramakrishna in the 40s. Frequently 39 this night while sleeping Dana Null RN - 07/28/2020 5:21 EST Electronically signed by Tereso [facility] Conversion Mutual Fund Manager Cerner at 11/12/2022 2:49 PM CDT documented in this encounter Plan of Treatment Not on file documented as of this encounter Visit Diagnoses Not on filedocumented in this encounter
--- OUTSIDE RECORDS SUMMARY | 2025-03-21 11:41 | XMS_ITS | Encounter Summary ---
Author Organization [employer] ([place], [place], [place], [place]) Address [address] [place] [address] Care Team Providers Care Warehouse Shipper Name Role Phone Unavailable Primary Care Provider Unavailabl e Encounter Details Date Type Department Care Team (Late st Contact Info) Description 07/26/2020 Transcribed Document [facility] [place] [address] [place] [address] ProviderNolan MD [address] [place] [address] Social History Tobacco Use Types Packs/Day Years Used Date Smoking Tobacco: Never Assessed Sex and Gender Information Value Date Recorded Sex Assigned at Not on file Legal Sex Male 7:15 PM CDT Gender Identity Not on file Sexual Orientation Not on file documented as of this encounter Miscellaneous Notes * Cerner Conversion Note - Nolan ProviderMD - 07/26/2020 1:49 PM UX SPECIALIST Nutrition Assessment Entered On: 07/27/2020 12:50 EST Performed On: 07/27/2020 13:[address] by [address]SE LOZ[address], NEVAEH Nutrition Assessment Nutrition Assessment Reason : Automatic referral JOSE LOZADA RD, NEVAEH - 07/27/2020 12:50 EST Nutrition Recommendations Dietitian Recommendations : (07/27/20) Consult received for stroke. Pt admitted with CVA. Pt passed swallow eval and is currently on a cardiac diet (~50% X 1 meal recorded). No UWL or skin breakdown identified. Labs and meds noted (A1C 6.0 and Gluc 96). 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 RD to rescreen in 7-[address] is available prn. JOSE LOZADA RD, LD - 07/27/2020 12:58 EST documented in this encounter Plan of Treatment Not on file documented as of this encounter Visit Diagnoses Not on filedocumented in this encounter
--- OUTSIDE RECORDS SUMMARY | 2025-03-21 11:41 | XMS_ITS | Encounter Summary ---
Author Organization [employer] ([place], [place], [place], [place]) Address [address] [place] [address] Care Team Providers Care Guest Service Host Name Role Phone Unavailable Primary Care Provider Unavailabl e Encounter Details Date Type Department Care Team (Late st Contact Info) Description 07/26/2020 Transcribed Document [facility] [place] Family Medicine [address] [place] [address] ProviderNolan MD [address] [place] [address] Social History Tobacco Use Types Packs/Day Years Used Date Smoking Tobacco: Never Assessed Sex and Gender Information Value Date Recorded Sex Assigned at Not on file Legal Sex Male 7:15 PM CDT Gender Identity Not on file Sexual Orientation Not on file documented as of this encounter Miscellaneous Notes * Cerner Conversion Note - Nolan Reardon MD - 07/26/2020 1:49 PM PSYCHOLOGICAL ANTHROPOLOGIST Swallow Evaluation Entered On: 07/26/2020 15:20 EST Performed On: 07/26/2020 15:08 EST by KIKI LOPES, NATHAN General Information Visit Type, SPEECH PROFESSOR : Initial evaluation Patient Orders : Speech Language Pathology Swallow Evaluation and Treatment -111 Start: 07/26/20 13:49:00 EST, Routine, For Swallow Eval and Treat, Ischemic Stroke - ENOC RANKIN MD-NEU Speech Language Pathology Evaluation and Treatment - Start: 07/26/20 13:49:00 EST, Routine, For Speech Language Cognitive Eval and Treat -111 ENOC RANKIN MD-NEU Admission Date : Admission Date/Time: 07/25/20 16:05:00 Medical Chart Reviewed, SPEECH PROFESSOR : Yes Personal Devices : Personal Devices No Devices Recorded Assistive Devices : Assistive Devices No Devices Recorded Active Diagnoses : 07/25/2020 12:00 Altered mental status 07/25/2020 12:00 Altered mental status, unspecified 07/25/2020 12:00 Cerebral infarction, unspecified 07/25/2020 12:00 Occlusion and stenosis of left carotid artery Therapy Diagnosis, SPEECH PROFESSOR : Pt presents without overt oropharyngeal patterns. Recommendations: 1. Regular/thin 2. Medication per RN 3. No further evaluation for oropharyngeal dysphagia is indicated 4. ST will f/u with a full communication evaluation when time permits Previous Speech/Language Evaluations : No previous ST in EMR Previous Swallow Precautions : No previous ST in EMR Diet/Intake Prior to Current Admission : Regular/thin Diet/Intake During Current Admission : NPO pending swallow evaluation Intubation Comment, SPEECH PROFESSOR : n/a Vital Signs RTF : Vitals [...] kg 189 lb Respiratory Assessment Comment : Room air KIKI LOPES SLP - 07/26/2020 15:08 EST General Status Patient Received Status, SPEECH PROFESSOR : Long sitting in bed Patient Left Status, SPEECH PROFESSOR : Long sitting in bed KIKI LOPES SLP - 07/26/2020 15:08 EST Pain Assessment Pain Scaled Used : 0-10 Pain scale Pain Score Pre-Intervention : 0 KIKI LOPES SLP - 07/26/2020 15:08 EST Image 1 - Images currently included in the form version of this document have not been included in the text rendition version of the form. Oral Mechanism Dysarthria : No Resonance Types : Appropriate Oral Mechanism for Daily Living : Intact SPEECH PROFESSOR Cough : Strong Facial Appearance: : Symmetrical Labial Appearance : Symmetrical Labial Function : All function intact Dental/Orthodontia : Edentulous Lingual Appearance : Deviated, right Lingual Function : All function intact KIKI LOPES SLP - 07/26/2020 15:08 EST Bedside Swallow Swallow Outcome BS Swallow : Intact Head Control BS Swallow : Neutral head position Presentation Style BS Swallow : Self Swallow Position BS Swallow : Upright 90 degrees Trunk Control BS Swallow : Upright centered position Consistencies Trialed BS Swallow : Thin by straw, Pudding, Regular solids KIKI LOPES SLP - 07/26/2020 15:08 EST Swallow Impressions Impressions, BS Swallow : No evidence of dysphagia present Swallowing Outcome Measures : Functional Oral Intake Scale (FOIS) Functional Oral Intake Scale (FOIS) : Level VII Bedside Swallow Overall Impressions : Per chart review, pt presented to [facility] 07/16/2020 where he was found to have a 100% carotid occlusion and CVA. He left AMA. Pt continued to present with AMS and cognitive deficits. Daughter brought pt to [facility] this date for further evaluation. Neuro consult is pending. Limited medical hx noted in chart. ST consulted for bedside dysphagia evalaution. Speech appears intact without overt dysarthria. Overt cognitive deficits appreciated. Pt is alert but not oriented to time. Requires cueing for orientation to place. Oral skills appear functional for swallowing. No overt pharyngeal patterns appreciated. Pt appears safe for a regular diet and thin liquids. Medication per RN. No further evaluation for oropharyngeal dysphagia is indicated at this time. ST will f/u with a definitive neuro dx warranting further communication evaluation. KIKI LOPES SLP - 07/26/2020 15:08 EST Swallow Recommendations Recommended Diet Type, SwRec : Regular Recommended Liquid Diet, SwRec : Thin Feeding Presentation Style, SwRec : No restrictions Swallow Position, SwRec : Upright 90 degrees Comp Strategies/Sw Precautions, SwRec : Upright for meals Supervision Level w/Meals, SwRec : Independent, complete Recommended Med Present, SwRec : As per nursing KIKI LOPES SLP - 07/26/2020 15:08 EST Therapy Indication Assessment SPEECH PROFESSOR Indicated : No SPEECH PROFESSOR Not Indicated : At prior level of function SPEECH PROFESSOR Interdisciplinary Consultation Needs : No SPEECH PROFESSOR Rehabilitation Potential : At prior level of function KIKI LOPES SLP - 07/26/2020 15:08 EST Education Barriers To Learning : Cognitive deficit Individuals Taught : Patient Readiness to Learn : Cooperative Readiness to Learn : Explanation KIKI LOPES SLP - 07/26/2020 15:08 EST SPEECH PROFESSOR Education Assessment Grid 1 Diet Recommendation : Verbalizes understanding Evaluation Results : Verbalizes understanding KIKI LOPES SLP - 07/26/2020 15:[address] [facility] Charges Evaluation Swallowing Function : 1 KIKI LOPES SLP - 07/26/2020 15:08 EST Anticipated Discharge Needs, SPEECH PROFESSOR Anticipated Discharge to : Outpatient rehabilitation Recommend Continued Therapy at Discharge : No KIKI LOPES SLP - 07/26/2020 15:08 EST Electronically signed by Tereso [facility] Conversion Label Stamper Cerner at 11/12/2022 2:42 PM CDT documented in this encounter Plan of Treatment Not on file documented as of this encounter Visit Diagnoses Not on filedocumented in this encounter
--- OUTSIDE RECORDS SUMMARY | 2025-03-21 11:41 | XMS_ITS | Encounter Summary ---
Author Organization [employer] ([place], [place], [place], [place]) Address [address] [place] [address] Care Team Providers Care Workday Director Name Role Phone Unavailable Primary Care Provider Unavailabl e Encounter Details Date Type Department Care Team (Late st Contact Info) Description 07/28/2020 Transcribed Document [facility] Family Medicine [address] [place] [address] ProviderNolan MD [address] [place], [place] [phone] Social History Tobacco Use Types Packs/Day Years Used Date Smoking Tobacco: Never Assessed Sex and Gender Information Value Date Recorded Sex Assigned at Not on file Legal Sex Male 7:15 PM CDT Gender Identity Not on file Sexual Orientation Not on file documented as of this encounter Miscellaneous Notes * Cerner Conversion Note - Nolan ProviderMD - 07/28/2020 10:38 AM TOWER ERECTOR HELPER Patient: JAMES LEBRON Age: 59 Years Sex: Male : 1960 Admit Date 07/27/2020 10:41 Discharge Date 07/28/20 Primary Care Provider DALY TAM MD-[facility] Discharge Diagnosis CVA, Left Cerebral hemisphere -got records from [facility] -MRI noted -reported 100% left carotid [...] for signs of withdrawal, CIWA moderate pcm -cell efficiency supervisor consult 60 - 70% stenosis of the ostium of the right vertebral artery -vs to follow as outpt Studies Reason For Exam Altered mental status (AMS), recent CVA, 100% carotid artery stenosis;Other (Please Specify) REPORT HEAD CT 07/25/2020 1:42 PM HISTORY: CVA COMPARISON: None. TECHNIQUE: Multiple axial CT images were performed from the foramen magnum to the vertex. This study was performed with techniques to keep radiation doses as low as reasonably achievable, (ALARA). Individualized dose reduction techniques using automated exposure control or adjustment of mA and/or kV according to the patient size were employed. FINDINGS: The ventricles are normal in size. There is no evidence of hemorrhage. No masses are identified. No extra-axial fluid is seen. The sinuses are normal. There is asymmetric left periventricular deep white matter change. IMPRESSION: Somewhat unusual asymmetric left periventricular white matter change. This may be secondary to small vessel disease. MRI recommended. REPORT PORTABLE CHEST; HISTORY: Altered mental status. COMPARISON: None. FINDINGS: There is ectasia of the aorta with calcified plaque noted. The heart is normal in size. The mediastinum is unremarkable. The lung bases are hypoaerated. There is bronchial thickening with increased markings, could be related to bronchitis. There is no focal infiltrate or pleural effusion. There is no pneumothorax. IMPRESSION: Bronchial thickening with increased markings, could be related to bronchitis. [1] FINDINGS: Limited images of the proximal cord are [...] acute ischemia in the left cerebral hemisphere. [2] Impression: Negative bubble study for interatrial shunt. No evidence of PFO. Mild left ventricular hypertrophy. Visually estimated ejection fraction 55% +/- 5%. Normal left ventricular systolic function. Normal left ventricular diastolic function. No hemodynamically significant valvular heart disease. No masses or thrombi are seen. [3] Hospital Course Mr. Lebron is a 59 year old [...] slurred speech, confusion. He was taken to [facility] ED where he was found to [...] Neurology, who agreed to consult on admission. Pt admitted and underwent MRI which showed: Multiple areas of acute ischemia in the left cerebral hemisphere. CTA HEAD AND NECK DONE AT OSH showed: CTA of head and neck ( done on July 16 at [facility] ) : a) Complete occlusion of the left ICA beginning 2 cm distal to the bifurcation and extends to the clinoid portion of the ICA. b) 60 - 70% stenosis of the ostium of the right vertebral artery. He was seen by vascular surgery who recommended continued asa and plavix, statin therapy. They rosa repeat CTA in 3 months and follow R carotid stenosis yearly. We have encouraged smoking and alcohol cessation. Echo with bubble negative and EF 55%. Pt has continued intermittent aphasia. Recommended rehab but refused. Will be set up for PT/OT/ST per CM team. Pt very insistent to go home. I have spoken to daughterBlanquita and informed her of above. She voices that he will not consider rehab. 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 TSH normal. Pt asymptomatic. He was evaluated by cards and they felt ok to DC. He was found to have Ectasia of aorta with plaque and should follow up with PCP. Pt did not require CIWA while hospitalized. VERY EAGER FOR DC HOME. Vital Signs T: 36.7 ??C TMIN: 36.6 ??C TMAX: 36.9 ??C HR: 43(Monitored) RR: 17 BP: 111/64 SpO2: 99% Oxygen Settings (Last) Oxygen Therapy Mode: Room air (07/28/20 05:30:00) Physical Exam alert, oriented sinus bradycardia, 59 ambulatory in room Discharge Disposition Home with Home Care Discharge Follow Up JAMES NEGRO - Within 6 weeks ALIDA RIZO - Within 3 months DALY TAM - Within 5 to 7 days Discharge Medications (4) Active aspirin 81 mg oral delayed release tablet 81 mg = 1 Tab, Oral, Daily Habitrol 14 mg/24 hr transdermal film, extended release 1 Patch, TransDermal, Daily Lipitor 80 mg oral tablet 80 mg = 1 Tab, Oral, At Bedtime Plavix 75 mg oral tablet 75 mg = 1 Tab, Oral, Daily Code Status Start: 07/25/20 19:52:00 EST, Full Code, Continuous Order Condition on Discharge stable Consulting Physicians ENOC RHODES MD-ALIDA MARQUEZ MD (family request) - L Carotid occlussion, 100% GEMMA PIMENTEL MD-CAR - Bradycardia Current Diet Order Diet, Adult - Ordered -- Start: 07/26/20 15:08:00 EST, Food Consistency: Regular texture, Liquid Consistency: Thin Liquid, Cardiac Diet Time Spent on Discharge > 30 mins. [1] CR Chest 1 Vw Port; Breonna Ramos, Client Experience Manager 07/25/2020 15:11 EST [2] MRI Brain WO; LUIS PALMER 07/26/2020 10:21 EST [3] [facility]; GEMMA PIMENTEL MD-CAR 07/27/2020 14:20 EST Electronically signed by [facility], [facility] Conversion Surgical Territory Manager Cerner at 11/12/2022 2:49 PM CDT documented in this encounter Plan of Treatment Not on file documented as of this encounter Visit Diagnoses Not on filedocumented in this encounter
--- OUTSIDE RECORDS SUMMARY | 2025-03-21 11:41 | XMS_ITS | Encounter Summary ---
Author Organization [employer] ([place], [place], [place], [place]) Address [address] [place] [address] Care Team Providers Care Cyber Threat Analyst Name Role Phone Unavailable Primary Care Provider Unavailabl e Encounter Details Date Type Department Care Team (Late st Contact Info) Description 07/28/2020 Transcribed Document [facility] [place] [address] [place] [address] ProviderNolan MD [address] [place], [place] [phone] Social History Tobacco Use Types Packs/Day Years Used Date Smoking Tobacco: Never Assessed Sex and Gender Information Value Date Recorded Sex Assigned at Not on file Legal Sex Male 7:15 PM CDT Gender Identity Not on file Sexual Orientation Not on file documented as of this encounter Miscellaneous Notes * Cerner Conversion Note - Historical ProviderMD - 07/28/2020 5:00 AM SUPERVISOR ASSEMBLING Chart Check - Review Order Profile Entered On: 07/28/2020 6:38 EST Performed On: 07/28/2020 5:00 EST by Dana Null RN Chart Check Powerplans Initiated/Discontinued as Appropriate : Not applicable All Active Orders Reviewed : Yes Dana Null RN - 07/28/2020 6:38 EST Electronically signed by Tereso [facility] Conversion Bead Preparer Cerner at 11/12/2022 2:47 PM CDT documented in this encounter Plan of Treatment Not on file documented as of this encounter Visit Diagnoses Not on filedocumented in this encounter
--- OUTSIDE RECORDS SUMMARY | 2025-03-21 11:41 | XMS_ITS | Encounter Summary ---
Author Organization [employer] ([place], [place], [place], [place]) Address [address] [place] [address] Care Team Providers Care Stone Dresser Name Role Phone Unavailable Primary Care Provider Unavailabl e Encounter Details Date Type Department Care Team (Late st Contact Info) Description 07/25/2020 Transcribed Document [facility] [place] [address] [place] [address] ProviderNolan MD [address] [place] [address] Social History Tobacco Use Types Packs/Day Years Used Date Smoking Tobacco: Never Assessed Sex and Gender Information Value Date Recorded Sex Assigned at Not on file Legal Sex Male 7:15 PM CDT Gender Identity Not on file Sexual Orientation Not on file documented as of this encounter Miscellaneous Notes * [employer]ner Conversion Note - Historical ProviderMD - 07/25/2020 3:37 PM 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 Rhodes seen patient on 07/26/2020 PAT MCGHEE - 07/27/2020 7:19 EST documented in this encounter Plan of Treatment Not on file documented as of this encounter Visit Diagnoses Not on filedocumented in this encounter
--- OUTSIDE RECORDS SUMMARY | 2025-03-21 11:41 | XMS_ITS | Encounter Summary ---
Author Organization [employer] ([place], [place], [place], [place]) Address [address] [place] [address] Care Team Providers Care Inclusion Teacher Name Role Phone Unavailable Primary Care Provider Unavailabl e Encounter Details Date Type Department Care Team (Late st Contact Info) Description 07/28/2020 Transcribed Document [facility] [place] Family Medicine [address] [place] [address] ProviderNolan MD [address] [place], [place] [id number] Social History Tobacco Use Types Packs/Day Years Used Date Smoking Tobacco: Never Assessed Sex and Gender Information Value Date Recorded Sex Assigned at Not on file Legal Sex Male 7:15 PM CDT Gender Identity Not on file Sexual Orientation Not on file documented as of this encounter Miscellaneous Notes * [employer]ner Conversion Note - Nolan Reardon MD - 07/28/2020 2:34 PM 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 Nursing Discharge Summary Entered On: 07/28/2020 14:35 EST Performed On: 07/28/2020 14:34 EST by OTTOINEL VELAZCO RN Discharge Documentation Discharge Date/Time : 07/28/2020 15:00 EST Patient Disposition, General : Discharge Discharge To : Home with ambulatory/outpatient follow-up Mode Of Departure, General Discharge : Private vehicle IV Discontinued : Yes Personal Belongings With Patient : No personal belongings to return Pt's Own Supply of Medications Returned : No patient supply of medications to return Prescriptions Given to Patient : Yes Medications Given to Patient : No Patient Education Completed : Yes Number of Prescriptions Given : 4 Teaching Method : Explanation Teaching Evaluation : Verbalizes understanding Education Comment : daily stroke education OTTONIEL VELAZCO RN - 07/28/2020 14:34 EST Electronically signed by Tereso [facility] Conversion Microeconomics Professor Cerner at 11/12/2022 2:50 PM CDT documented in this encounter Plan of Treatment Not on file documented as of this encounter Visit Diagnoses Not on filedocumented in this encounter
--- OUTSIDE RECORDS SUMMARY | 2025-03-21 11:41 | XMS_ITS | Encounter Summary ---
Author Organization [employer] ([place], [place], [place], [place]) Address [address] [place] [address] Care Team Providers Care College Instructor Name Role Phone Unavailable Primary Care Provider Unavailabl e Encounter Details Date Type Department Care Team (Late st Contact Info) Description 07/28/2020 Transcribed Document [facility] [place] [place] Family Medicine [address] [place] [address] ProviderNolan MD [address] [place] [address] Social History Tobacco Use Types Packs/Day Years Used Date Smoking Tobacco: Never Assessed Sex and Gender Information Value Date Recorded Sex Assigned at Not on file Legal Sex Male 7:15 PM CDT Gender Identity Not on file Sexual Orientation Not on file documented as of this encounter Miscellaneous Notes * Cerner Conversion Note - Nolan Reardon MD - 07/28/2020 10:42 AM MEDICAL RECORDS CUSTODIAN [address] [address] Patient Copy Patient Information: Name: JAMES LEBRON Current Date: 07/28/2020 10:42:08 : 1960 Patient Address: [address] [place] [address] [address] [place] [address] Patient Attending Physician: ELISEO STRATTON, DO-INT Primary Care Provider: DALY TAM MD-[facility] Primary Care Provider Discharge Diagnosis: Altered mental state; CVA (cerebrovascular accident); Left carotid artery occlusion Weight on Admission: 189 lb, 1 oz Comment: Follow-up Instructions: With: Address: When: DALY TAM [address] [place] [address] Business (1) Within 5 to 7 days With: Address: When: MARTHA RANDALL [address] [place] [phone] Business (1) Within 3 months Comments: needs CTA to assess carotid stenosis With: Address: When: JAMES NEGRO [address], [address] [place], [place] [phone] Business (1) Within 6 weeks Comments: Patient should call for a follow up appointment with [facility] Neurology. Discharge Instructions: Driving after Discharge: Do [...] difficulty sleeping, and nervousness. Patient education materials: Carotid Artery Disease The carotid arteries are [...] Follow these instructions at home: ??? Take zgex-dgv-luhpzxd and prescription medicines only as told by [...] warning stroke (transient ischemic attack). ??? Take ttlz-sdz-hrkazsh and prescription medicines only as told by your doctor. ??? Keep all follow-up visits as told by your doctor. This is important. This information is not intended to replace advice given to you by your health care provider. Make sure you discuss any questions you have with your health care provider. Document Released: 07/01/2013 Document Revised: 07/10/2018 Document Reviewed: 07/10/2018 [employer] Patient Education ? 2020 [employer]. Fat and Cholesterol Restricted Eating Plan Getting [...] ? Monounsaturated fats. ? Polyunsaturated fats. ? [place]-3 fats. ??? Choose grain products that have [...] oatmeal, bulgur, barley, quinoa, or brown rice. [place] or whole wheat flour tortillas. Meats and [...] or reduced-fat mayonnaise and salad dressings. Avocado. [place], canola, sesame, or safflower oils. The items [...] Dairy ??? Whole or 2% milk, cream, infh-dyt-pide, and cream cheese. Whole milk cheeses. Whole-fat or sweetened yogurt. Full-fat cheeses. Nondairy creamers and whipped toppings. Processed cheese, cheese spreads, and cheese curds. Beverages ??? Alcohol. Sugar-sweetened drinks such as sodas, lemonade, and fruit drinks. Fats and oils ??? Butter, stick margarine, lard, shortening, ghee, or arenas fat. Coconut, palm kernel, and palm oils. Sweets and desserts ??? [place] syrup, sugars, honey, and molasses. Candy. Jam [...] 01/13/2013 Document Revised: 03/18/2019 Document Reviewed: 04/01/2018 [employer] Patient Education ? 2020 [employer] Steps to Quit Smoking Smoking tobacco is [...] a prescription and some you can purchase lkcp-sxl-jilzpuj. Medicines may have nicotine in them to [...] for support and encouragement. Call telephone quitlines (-NOW), reach out to support groups, or work [...] 07/09/2002 Document Revised: 10/02/2019 Document Reviewed: 10/03/2019 [employer] Patient Education ? 2020 [employer]. Coping with Quitting Smoking Quitting smoking is [...] on hard candies or a straw. ? [place] your teeth. ??? Keep your hands and [...] ??? Call a quit line, such as 7-289-JVLU-NOW. ??? Talk with your health care provider [...] 07/12/2017 Document Revised: 06/27/2018 Document Reviewed: 07/12/2017 [employer] Patient Education ? 2020 [employer]. Aphasia Aphasia is a language disorder that [...] 04/06/2003 Document Revised: 08/15/2018 Document Reviewed: 08/12/2018 [employer] Patient Education ? 2020 [employer] Bradycardia, Adult Bradycardia is a vfvifr-xdvr-phvrsb heartbeat. A normal resting heart rate for [...] provider. ??? Follow a heart-healthy diet. A renal medicine specialist (dietitian) can help educate you about [...] liquor (44 mL). General instructions ??? Take avkr-xve-upbuvnf and prescription medicines only as told by [...] Trouble breathing. Summary ??? Bradycardia is a zxmzry-aryr-smporn heartbeat. With bradycardia, the resting heart rate [...] 04/06/2003 Document Revised: 01/26/2019 Document Reviewed: 12/24/2018 [employer] Patient Education ? 2020 [employer] Stroke Prevention Some medical conditions and behaviors [...] lot or have excessive sleepiness. ??? Take nked-ywe-vbgsgzt and prescription medicines only as told by [...] more information For more information, visit: ??? [place] Stroke Association: www.strokeassociation.org ??? National Stroke Association: [...] 08/22/2005 Document Revised: 06/27/2018 Document Reviewed: 08/20/2017 [employer] Patient Education ? 2019 [employer]. CIGARETTE SMOKING: The facts are clear, cigarette smoking will shorten your life. Smoking can cause many illnesses along the way. As a healthcare provider, we recommend that you stop smoking. Assistance with quitting is available by contacting 4-246-CAXI-NOW. This is a free resource providing counseling, [...] Be sure to sign up for the [employer] patient portal, which gives you 18/02 access to your medical information ??? including these discharge instructions ??? using your computer, smartphone, or tablet. Just go to [employer] to get started. Questions? Call . [facility] would like to thank you for allowing us to assist you with your healthcare needs. DEXTER Dinh GREGORY LEE, (or teleservices representative) have received the above patient education materials/instructions and have verbalized understanding: Patient Signature _ Date/Time Patient Shellacker Signature (if needed) Date/Time Clinician/Hospital Shellacker Signature (if needed) Date/Time Electronically signed by Tereso [facility] Conversion Staffing Assistant Cerner at 11/12/2022 2:45 PM CDT documented in this encounter Plan of Treatment Not on file documented as of this encounter Visit Diagnoses Not on filedocumented in this encounter
--- OUTSIDE RECORDS SUMMARY | 2025-03-21 11:41 | XMS_ITS | Encounter Summary ---
Author Organization [facility] ([place], [place], [place], [place]) Address [address] [place] [address] Care Team Providers Care Sales Representative Trainee Name Role Phone Unavailable Primary Care Provider Unavailabl e Encounter Details Date Type Department Care Team (Late st Contact Info) Description 07/28/2020 Transcribed Document [facility] Cardiology [address] [place] [address] Jeffry Moreno MD [address] [facility] [address] [place] [address] Social History Tobacco Use Types Packs/Day Years Used Date Smoking Tobacco: Never Assessed Sex and Gender Information Value Date Recorded Sex Assigned at Not on file Legal Sex Male 7:15 PM CDT Gender Identity Not on file Sexual Orientation Not on file documented as of this encounter Miscellaneous Notes * Cerner Conversion Note - Jeffry Moreno MD - 07/28/2020 10:09 AM EST Patient: JAMES LEBRON Age: 59 years Sex: Male : 1960 Associated Diagnoses: None Author: JEFFRY MORENO MD-CAR Basic Information PCP: Cardiology: NA Chief Complaint bradycardia History of Present Illness The patient is an unfortunate 59-year-old gentleman with a known history of recent CVA, carotid artery disease with known 1% left carotid artery occlusion, hypertension, dyslipidemia, ongoing tobacco abuse, and intermittent alcohol use who presents to [facility] emergency department for confusion. Per records the patient initially presented to outlying facility with a stroke that occurred around 16 July. He apparently left AGAINST MEDICAL ADVICE, but states he has taken his medication since. Cardiology has been asked to see and assist in the management of his care after he had some bradycardic episodes on telemetry. Patient has no complaints of chest pain, palpitations, dizziness, syncope, shortness of air, or edema. He is unaware of any personal cardiac history. At the time of this assessment the patient is resting comfortably no acute distress. Review of Systems Constitutional: Negative except as documented in history of present illness. Eye: Negative except as documented in history of present illness. Ear/Nose/Mouth/Throat: Negative except as documented in history of present illness. Respiratory: Negative except as documented in history of present illness. Cardiovascular: Negative except as documented in history of present illness. Gastrointestinal: Negative except as documented in history of present illness. Genitourinary: Negative except as documented in history of present illness. Hematology/Lymphatics: Negative except as documented in history of present illness. Endocrine: Negative except as documented in history of present illness. Immunologic: Negative except as documented in history of present illness. Musculoskeletal: Negative except as documented in history of present illness. Integumentary: Negative except as documented in history of present illness. Neurologic: Negative except as documented in history of present illness. Psychiatric: Negative except as documented in history of present illness. ROS reviewed as documented in chart Health Status Allergies (1) Active Reaction No Known Allergies None Documented Home Medications (3) Active aspirin 81 mg oral delayed release tablet 81 mg = 1 Tab, Oral, Daily Lipitor 80 mg oral tablet 80 mg = 1 Tab, Oral, At Bedtime Plavix 75 mg oral tablet 75 mg = 1 Tab, Oral, Daily Current medications: Medications (13) Active Scheduled: (5) aspirin EC 81 mg tab 81 mg 1 Tab, Oral, Daily atorvastatin 40 mg tab 40 mg 1 Tab, Oral, At Bedtime clopidogrel 75 mg tab 75 mg 1 Tab, Oral, Daily famotidine 20 mg tab 20 mg 1 Tab, Oral, Q12H nicotine 14 mg/24 hr patch 1 Patch, TransDermal, Daily Continuous: (0) PRN: (8) acetaminophen 325 mg tab 650 mg 2 Tab, Oral, Q4H acetaminophen 325 mg tab 650 mg 2 Tab, Oral, Q4H albuterol-ipratropium inh 3 mL 3 mL, Nebulized Inhalation, RT_Q6H bisacodyl EC 5 mg tab 5 mg 1 Tab, Oral, Daily hydrALAZINE 20 mg/1 mL inj 10 mg 0.5 mL, IV Push, Q6H melatonin 3 mg tab 3 mg 1 Tab, Oral, At Bedtime ondansetron 4 mg/2 mL inj 4 mg 2 mL, IV Push, Q4H polyethylene glycol 3350 pwd 17 g pkt 17 Gram 1 Packet, Oral, Daily Problem list: All Problems At risk for sleep apnea / IMO [id number] / Confirmed, Active Problems (1) At risk for sleep apnea Histories No education data available. Social & Psychosocial Habits No Data Available Past Medical History: CVA (recent 07/16/2020) Hypertension Dyslipidemia Ongoing tobacco abuse Family History: Noncontributory Procedure history: Unknown Social History Social & Psychosocial Habits No Data Available . Physical Examination VS/Measurements Vitals Signs (last 24 hrs) Last Charted Minimum Maximum Temp 98.1 (JUL 28 05:30) 97.8 (JUL 28 03:00) 98.4 (JUL 27 15:00) Mon HR 43 (JUL 28:) 43 (JUL 28:) 61 (JUL 27:35) Resp Rate 17 (JUL 28:) 16 (JUL 27 15:00) 18 (JUL 27:35) SBP 111 (JUL 28 05:30) 111 (JUL 28 05:) 137 (JUL 27 23:00) DBP 64 (JUL 28 05:) 64 (JUL 28 03:00) 74 (JUL 27:35) MAP 75 (JUL 28 05:) 75 (JUL 28 05:) 101 (JUL 27 23:00) SpO2 99 (JUL 28:00) 95 (JUL 27:35) 99 (JUL 28 03:00) General: No acute distress. Eye: Pupils are equal, round and reactive to light, Extraocular movements are intact. HENT: Normocephalic, Tympanic membranes are clear, Oral mucosa is moist. Neck: Supple, Non-tender. Respiratory: Respirations are non-labored, Symmetrical chest wall expansion. Cardiovascular: Regular rhythm, S1, S2, Bradycardia, Good pulses equal in all extremities, Normal peripheral perfusion. Gastrointestinal: Soft, Non-tender, Non-distended, Normal bowel sounds. Genitourinary: No costovertebral angle tenderness. Musculoskeletal: Normal range of motion, Normal strength. Integumentary: Warm, Dry, Intact. Neurologic: Alert, No focal deficits. Psychiatric: Cooperative, Appropriate mood & affect. Review / Management No qualifying data available Cardiac Markers (Current Encounter/Past 24 Hours) No Cardiac Marker Results Found (Past 24 Hours) Blood Gases (Current Encounter/Past 24 Hours) No Blood Gas Results Found (Past 24 Hours) Radiology Results (Last 48 hours) [id number] -- 07/27/2020 10:41 MRI Brain WO (07/26/2020 10:21) Result: MRI BRAINHISTORY: Slurred speech.PROCEDURE: Multiplanar MR imaging of the brain was performed in multipleMR sequences .FINDINGS: Limited images of the proximal cord are unremarkable. Theventricles are normal in size. There is no extra-axial fluid or midlineshift. There is no evidence of acute hemorrhage. Flow-voids areappropriate. There are multiple foci of abnormal signal in the deepwhite matter of the left hemisphere with abnormal restricted diffusionand corresponding decreased signal on ADC map images. Findings areconsistent with acute ischemia. There are small, nonspecific deep whitematter changes in the right hemisphere. Limited images of the paranasalsinuses are unremarkable. IMPRESSION: Multiple areas of acute ischemia in the left cerebralhemisphere.Flaquita, the patient's nurse, was phoned to report.Films reviewed , interpreted and dictated by Dr. Shaikh.Transcribed by Janes Starkey PA-C.I have personally viewed, interpreted and dictated the examination. Ihave read and agree with the above final transcribed report. Results review: Labs (Last four charted values) WBC 9.0 (JUL 26) H 10.8 (JUL 25) HB 14.5 (JUL 26) 15.8 (JUL 25) HCT 42.6 (JUL 26) 47.2 (JUL 25) Plt 274 (JUL 26) 287 (JUL 25) Na 140 (JUL 26) 136 (JUL 25) K 3.7 (JUL 26) 3.9 (JUL 25) Cl 108 (JUL 26) 106 (JUL 25) CO2 27 (JUL 26) 27 (JUL 25) BUN 12 (JUL 26) 13 (JUL 25) Cr 0.90 (JUL 26) 0.90 (JUL 25) Glu R 96 (JUL 26) 93 (JUL 25) Ca 8.9 (JUL 26) 9.0 (JUL 25) PT 11.1 (JUL 26) INR 1.1 (JUL 26) PTT 27.5 (JUL 27) AST 9 (JUL 26) ALT L 13 (JUL 26) ALK P 72 (JUL 26) T Bili 0.5 (JUL 26) PTN L 6.3 (JUL 26) ALB L 2.9 (JUL 26) . Impression: Negative bubble study for interatrial shunt. No evidence of PFO. Mild left ventricular hypertrophy. Visually estimated ejection fraction 55% +/- 5%. Normal left ventricular systolic function. Normal left ventricular diastolic function. No hemodynamically significant valvular heart disease. No masses or thrombi are seen. Measurements Summary: LVEDd: 4.52 cm LVESd: 3.21 cm IVSEd: 1.24 cm AO Root:3.74 cm LVPWd: 1.01 cm Impression and Plan IMPRESSION: * Asymptomatic bradycardia after CVA * Recent CVA---07/16/2020 a. 100% occluded left carotid artery (per vascular surgery) * Hypertension * Dyslipidemia * Ongoing tobacco abuse PLAN; Echocardiogram with bubble study Antiplatelet agents per neurology recommendations Continue statin Avoid AV dallas blockers EKG now and in a.m. Further recommendations pending echocardiographic evaluation and review of telemetry Echocardiogram is unremarkable. OK for d/c home from Cardiac standpoint. documented in this encounter Plan of Treatment Not on file documented as of this encounter Visit Diagnoses Not on filedocumented in this encounter
--- OUTSIDE RECORDS SUMMARY | 2025-03-21 11:41 | XMS_ITS | Clinical Summary ---
Author Organization [facility] Address [address] [place] [address] Care Team Providers Care Oral Pathologist Name Role Phone Silvestre Perera MD Primary Care Provider [phone] Social History Tobacco Use Types Packs/Day Years Used Date Smoking Tobacco: Never Assessed Sex and Gender Information Value Date Recorded Sex Assigned at Not on file Legal Sex Male 8:03 PM EDT Gender Identity Not on file Sexual Orientation Not on file Plan of Treatment Not on file Care Teams Oral Pathologist Relationship Specialty Start Date End Date Silvestre Perera MD [address] [place] [address] [address] [place] [address] PCP - General 12/09/20
--- OUTSIDE RECORDS SUMMARY | 2025-03-21 11:41 | XMS_ITS | Encounter Summary ---
Author Organization [employer] ([place], [place], [place], [place]) Address [address] [place] [address] Care Team Providers Care Associate Dean Name Role Phone Unavailable Primary Care Provider Unavailabl e Encounter Details Date Type Department Care Team (Late st Contact Info) Description 07/28/2020 Transcribed Document [facility] Family Medicine [address] [place] [address] ProviderNolan MD [address] [place] [address] Social History Tobacco Use Types Packs/Day Years Used Date Smoking Tobacco: Never Assessed Sex and Gender Information Value Date Recorded Sex Assigned at Not on file Legal Sex Male 7:15 PM CDT Gender Identity Not on file Sexual Orientation Not on file documented as of this encounter Miscellaneous Notes * Cerner Conversion Note - Nolan Reardon MD - 07/28/2020 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 [place] [address] BERNARDINO JAMES LEE :1960 Visit Time:07/27/2020 Your Visit Summary Your Care Team Admitting Physician - ELISEO STRATTON DO-INT Attending Physician - JORGE A GRIER MD Primary Care Physician - DALY TAM MD-[facility] Referring Physician - KARINA WALLIS MD-[facility] Your Diagnosis Altered mental state Altered mental status, Altered mental status Cerebral infarction, unspecified, Cerebral infarction, unspecified, CVA (cerebrovascular accident) Left carotid artery occlusion Discharge Vitals Temperature 37.1 ??C Heart Rate (Monitored) 66 Respiratory Rate 16 Blood Pressure 119/74 What to do next Follow-Up Appointments Follow Up with JAMES NEGRO When Within 6 weeks Comments Faxed facesheet to [facility] on [address]. The office will call patient to set up appt. Where: [address] [place] [address]- Business (1) Follow Up with ALIDA RIZO When Within 3 months Comments bring cta neck CD with you to visit. [facility]btain this from [facility] Where: [facility] [address] [place] [address]- Business (1) Follow Up with DALY TAM When Within 5 to 7 days Where: [address] [place] [address]- Business (1) Medications What How Much When Instructions Next Dose nicotine (Habitrol 14 mg/ 24 hr transdermal film, extended release) 1 Patch(es) TransDermal Every Day Printed Prescription aspirin (aspirin 81 mg oral delayed release tablet) 1 Tablet(s) Oral Every Day Printed Prescription atorvastatin (Lipitor 80 mg oral tablet) 1 Tablet(s) Oral At Bedtime Printed Prescription clopidogrel (Plavix 75 mg oral tablet) 1 Tablet(s) Oral Every Day Printed Prescription Take your medications faithfully. Do NOT skip [...] cramping, rapid heartbeat, difficulty sleeping, and nervousness. Please dispose of unused and medications per your retail pharmacy guidance. Allergies No Known Allergies Immunizations This Visit No Immunizations Found Stroke/TIA Instructions Individualized Stroke Risk Factors Individualized Stroke Risk Factors *Q: Smoking Education Materials Ischemic Stroke An ischemic stroke is the [...] these instructions at home: Medicines ??? Take fxfm-jft-szlqbjr and prescription medicines only as told by [...] of beer, 5 oz of wine, or 1?? oz of hard liquor. ??? If you [...] 07/03/2012 Document Revised: 12/24/2018 Document Reviewed: 10/10/2016 [employer] Patient Education ?? 2019 [employer]. Carotid Endarterectomy A carotid endarterectomy is a [...] including vitamins, herbs, eye drops, creams, and ncwh-cap-xxzjosi medicines. ??? Any problems you or family [...] Up to 2 hours before the procedure ??? you may continue to drink clear liquids, such as water, clear fruit juice, black coffee, and plain tea. Eating and drinking restrictions Follow instructions from your health care provider about eating and drinking, which may include: ??? 8 hours before the procedure ??? stop eating heavy meals or foods, such as meat, fried foods, or fatty foods. ??? 6 hours before the procedure ??? stop eating light meals or foods, such as toast or cereal. ??? 6 hours before the procedure ??? stop drinking milk or drinks that contain milk. ??? 2 hours before the procedure ??? stop drinking clear liquids. Medicines ??? Ask your health care provider about: ? Changing or stopping your regular medicines. This is especially important if you are taking diabetes medicines or blood thinners. ? Taking medicines such as aspirin and ibuprofen. These medicines can thin your blood. Do not take these medicines unless your health care provider tells you to take them. ? Taking nann-ckn-drgnayl medicines, vitamins, herbs, and supplements. General instructions ??? Do not use any products that contain nicotine or tobacco for at least 4???6 weeks, or as soon as possible, before [...] 03/17/2014 Document Revised: 03/24/2019 Document Reviewed: 03/24/2019 [employer] Patient Education ?? 2020 [employer] Stroke Prevention Some medical conditions and [...] of beer, 5 oz of wine, or 1?? oz of hard liquor. ??? Stop any [...] lot or have excessive sleepiness. ??? Take gvxo-vhv-zprorkf and prescription medicines only as told by [...] more information For more information, visit: ??? [place] Stroke Association: www.strokeassociation.org ??? National Stroke Association: [...] 08/22/2005 Document Revised: 06/27/2018 Document Reviewed: 08/20/2017 [employer] Patient Education ?? 2020 [employer]. Carotid Artery Disease The carotid arteries are [...] Follow these instructions at home: ??? Take kuzq-aep-nngsvax and prescription medicines only as told by [...] local emergency services (911 in [place] Do not drive yourself to the clinic or hospital. Summary ??? The carotid arteries are arteries on both sides of the neck. ??? If these arteries get smaller or get blocked, you are more likely to have a stroke or a warning stroke (transient ischemic attack). ??? Take lkaj-ieq-rqxukio and prescription medicines only as told by your doctor. ??? Keep all follow-up visits as told by your doctor. This is important. This information is not intended to replace advice given to you by your health care provider. Make sure you discuss any questions you have with your health care provider. Document Released: 07/01/2013 Document Revised: 07/10/2018 Document Reviewed: 07/10/2018 [employer] Patient Education ?? 2020 [employer] Fat and Cholesterol Restricted Eating Plan Getting [...] of beer, 5 oz of wine, or 1?? oz of hard liquor. Reading food labels ??? Check food labels for: ? Trans fats. ? Partially hydrogenated oils. ? Saturated fat (g) in each serving. ? Cholesterol (mg) in each serving. ? Fiber (g) in each serving. ??? Choose foods with healthy fats, such as: ? Monounsaturated fats. ? Polyunsaturated fats. ? [place]-3 fats. ??? Choose grain products that have [...] oatmeal, bulgur, barley, quinoa, or brown rice. [place] or whole wheat flour tortillas. Meats and [...] or reduced-fat mayonnaise and salad dressings. Avocado. [place], canola, sesame, or safflower oils. The items [...] Dairy ??? Whole or 2% milk, cream, hajg-aqm-vgxw, and cream cheese. Whole milk cheeses. Whole-fat or sweetened yogurt. Full-fat cheeses. Nondairy creamers and whipped toppings. Processed cheese, cheese spreads, and cheese curds. Beverages ??? Alcohol. Sugar-sweetened drinks such as sodas, lemonade, and fruit drinks. Fats and oils ??? Butter, stick margarine, lard, shortening, ghee, or arenas fat. Coconut, palm kernel, and palm oils. Sweets and desserts ??? [place] syrup, sugars, honey, and molasses. Candy. Jam [...] 01/13/2013 Document Revised: 03/18/2019 Document Reviewed: 04/01/2018 [employer] Patient Education ?? 2020 [employer]. Steps to Quit Smoking Smoking tobacco is [...] a prescription and some you can purchase vkhm-qjm-pgjlvsv. Medicines may have nicotine in them to [...] for support and encouragement. Call telephone quitlines (5-029-JFKCNOW), reach out to support groups, or work [...] symptoms. These symptoms are usually most noticeable 2???3 days after quitting, but they usually do not last for more than 2???3 weeks. You may experience these symptoms: ??? [...] Week 3 and afterward After the first 2???3 weeks of quitting, you may start to [...] 07/09/2002 Document Revised: 10/02/2019 Document Reviewed: 10/03/2019 [employer] Patient Education ?? 2020 [employer]. Coping with Quitting Smoking Quitting smoking is a physical and mental challenge. You will face cravings, withdrawal symptoms, and temptation. Before quitting, work with your health care provider to make a plan that can help you cope. Preparation can help you quit and keep you from giving in. How can I cope with cravings? Cravings usually last for 5???10 minutes. If you get through it, the craving will pass. Consider taking the following actions to help you cope with cravings: ??? Keep your mouth busy: ? Chew sugar-free gum. ? Suck on hard candies or a straw. ? [place] your teeth. ??? Keep your hands and [...] ??? Call a quit line, such as 5-548-SXTH-NOW. ??? Talk with your health care provider [...] small portion sizes at meals. ? Eat 4???6 small meals throughout the day instead of 1???2 large meals a day. ? Be mindful when you eat. Do not watch television or do other things that might distract you as you eat. ??? Exercising regularly: ? Make time to exercise each day. If you do not have time for a long workout, do short bouts of exercise for 5???10 minutes several times a day. ? Do some form of strengthening exercise, like weight lifting, and some form of aerobic exercise, like running or swimming. ??? Drinking plenty of water or other low-calorie or no-calorie drinks. Drink 6???8 glasses of water daily, or as much [...] 07/12/2017 Document Revised: 06/27/2018 Document Reviewed: 07/12/2017 [employer] Patient Education ?? 2020 [employer]. Aphasia Aphasia is a language disorder that [...] 04/06/2003 Document Revised: 08/15/2018 Document Reviewed: 08/12/2018 [employer] Patient Education ?? 2020 [employer] Bradycardia, Adult Bradycardia is a yebdcr-iggt-bztvjn heartbeat. A normal resting heart rate for [...] while you go about your day. ??? An exercise test. How is this treated? Treatment for [...] provider. ??? Follow a heart-healthy diet. A food and nutrition services assistant (dietitian) can help educate you about healthy [...] glass of wine (148 mL), or one 1?? oz glass of hard liquor (44 mL). General instructions ??? Take okoh-axl-pugwtbe and prescription medicines only as told by [...] Trouble breathing. Summary ??? Bradycardia is a swqcaz-cadb-xbnymw heartbeat. With bradycardia, the resting heart rate [...] 04/06/2003 Document Revised: 01/26/2019 Document Reviewed: 12/24/2018 [employer] Patient Education ?? 2020 [employer] Emergency Awareness and Preventative Care STROKE is an EMERGENCY Every Minute Counts Act FAST and Check for these signs: FACE Does the face look uneven? ARM Does one arm drift down? SPEECH Does their speech sound strange? TIME Call at any sign of stroke Stroke Risk Factors Atrial Fibrillation (irregular heartbeat) Diabetes Family history of stroke Heart Disease Heavy alcohol use High Blood Pressure High Cholesterol Physical inactivity and obesity Smoking Cigarette Smoking The facts are clear, cigarette smoking will shorten your life. Smoking can cause many illnesses along the way. As a healthcare provider, we recommend that you stop smoking. Assistance with quitting is available by contacting 0-379-ZYEKNOW. This is a free resource providing counseling, support, and referral. Or you may contact your personal physician. Opp Suicide Prevention Lifeline: The National Suicide Prevention Lifeline is a national network of local crisis centers that provides free and confidential emotional support to people in suicidal crisis or emotional distress 24 hours a day, 7 days a week. Don't Wait! Stop a Heart Attack Before it Starts What is a heart attack? A heart attack is damage or to a part of the heart from severely decreased or lack of blood flow to the heart. Over time, arteries can become narrow from the buildup of fat and cholesterol, which is called plaque. The plaque can rupture causing a blood clot to form. When the blood clot forms, the artery can become severely narrowed or completely blocked, causing a heart attack. Heart attack is the leading cause of in the [place]. 85% of muscle damage occurs within the first 2 hours. Delay in the recognition of heart attack symptoms increases the chances of . Know the early symptoms of a heart attack: Nausea Feeling of fullness in chest Jaw Pain Pain that travels down one or both arms Fatigue/being tired Anxiety Back Pain Chest pressure, squeezing, or discomfort Shortness of breath Sweating, or a cold sweat Feeling of impending doom There are unusual signs of a heart attack, too! Women, the elderly, and diabetics may present with atypical symptoms: Fainting/dizziness Weakness Confusion Risk Factors for a Heart Attack Some heart disease risk factors, such as age and family history, cannot be changed. Others, like smoking and lack of exercise, can be changed. Smoking High Cholesterol High Blood Pressure Family History Obesity Age documented in this encounter Plan of Treatment Not on file documented as of this encounter Visit Diagnoses Not on filedocumented in this encounter
--- OUTSIDE RECORDS SUMMARY | 2025-03-21 11:41 | XMS_ITS | Encounter Summary ---
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 Name Role Phone Unavailable Primary Care Provider Unavailabl e Encounter Details Date Type Department Care Team (Late st Contact Info) Description 07/28/2020 Transcribed Document [facility] [place] [address] [place] [address] ProviderNolan MD [address] [place], [place] [id number] Social History Tobacco Use Types Packs/Day Years Used Date Smoking Tobacco: Never Assessed Sex and Gender Information Value Date Recorded Sex Assigned at Not on file Legal Sex Male 7:15 PM CDT Gender Identity Not on file Sexual Orientation Not on file documented as of this encounter Miscellaneous Notes * Cerner Conversion Note - Nolan ProviderMD - 07/28/2020 11:00 AM 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 Living Situation : Home Patient Lives With : Spouse Is the Patient a Caregiver at Home? : No Emergency Contact #1 : katiuska Emergency Contact #1 Emergency Contact #1 Relationship : daughter Emergency Contact #2 : . Emergency Contact #2 Phone Number : . Emergency Contact #2 Relationship : . Enter Doctors Name : Ugo Leung Does Patient have PCP Listed? : Yes JACY BONILLA RN-Care Management - 07/28/2020 12:44 EST Initial Assessment II Sensory and Motor Deficits : Weakness Current Home Treatments and Equipment : None JACY BONILLA RN-Care Management - 07/28/2020 12:44 EST Discharge Needs I Anticipated Discharge Date : 07/29/2020 EST Anticipated Discharge To, CM : Other: Yet to be determined, anticipate HH if agreeable Current Home Treatment/Equipment : Current Home Treatment/Equipment No qualifying data available. Post Acute/Home Treatments : Other: Yet to be determined Documentation Status Complete : Yes JACY BONILLA RN-Care Management - 07/28/2020 12:44 EST Discharge Needs II Professional Skilled Services : Professional Skilled Services No qualifying data available. Needs Assistance with Transportation : No Discharge Options Discussed with Patient : Discharge transportation, DME, Home Health, Short term rehabilitation JACY BONILLA RN-Care Management - 07/28/2020 12:44 EST Narrative Note Narrative Note : Was able to speak to pt and pt states he lives w/spouse and denies any DME/HH/SNF hx. Pt states he does wll w/assistance of spouse. I informed pt of my role as CM and that I would be following him until he is medically cleared for dc. Understanding verbalized JACY BONILLA RN-Care Management - 07/28/2020 12:44 EST documented in this encounter Plan of Treatment Not on file documented as of this encounter Visit Diagnoses Not on filedocumented in this encounter
--- OUTSIDE RECORDS SUMMARY | 2025-03-21 11:41 | XMS_ITS | Encounter Summary ---
Author Organization [employer] ([place], [place], [place], [place]) Address [address] [place] [address] Care Team Providers Care Numerical Control Machine Operator Name Role Phone Unavailable Primary Care Provider Unavailabl e Encounter Details Date Type Department Care Team (Late st Contact Info) Description 07/25/2020 Transcribed Document [facility] Radiology [address] [place] [address] Fiona Mcallister MD [facility] Dept [place] [address] Social History Tobacco Use Types Packs/Day Years Used Date Smoking Tobacco: Never Assessed Sex and Gender Information Value Date Recorded Sex Assigned at Not on file Legal Sex Male 7:15 PM CDT Gender Identity Not on file Sexual Orientation Not on file documented as of this encounter Miscellaneous Notes * Cerner Conversion Note - Fiona Mcallister MD - 07/25/2020 4:20 PM EST Patient: JAMES LEBRON Age: 59 years Sex: Male : 1960 Associated Diagnoses: CVA (cerebrovascular accident); Left carotid artery occlusion; Altered mental state Author: MEL PHELPS PA-C Basic Information Time seen: Date & time 07/25/2020 13:10:00. History source: Patient, daughter. Arrival mode: Private vehicle. History limitation: Clinical condition. Additional information: Chief Complaint from Nursing Triage Note : Chief Complaint 07/25/2020 12:02 EST Chief Complaint Pt seen at [facility] 07/16 for CVA/slurred speech. Advised has 100% blockage to L carotid. Left AMA from on 07/17. Dtr states has been sleeping more since 07/11, has increased confusion when waking. Started ASA, plavix, atorvastatin @ . . History of Present Illness Patient is a 59-year-old male with a history of smoking, recent diagnosis of CVA and carotid artery blockage who presents to the ED for evaluation. Patient is a poor historian, family reports that patient has been altered since July 11. Daughter states that on July 11 the patient had increased lethargy, was taking naps that are not typical for him and had intermittent confusion. States that on July 16 she noticed that the patient had some slurred speech and difficulty remembering his name or date of . He was taken to [facility] emergency department, had stroke work-up and was found to have had a CVA along with 100% blockage of his left carotid artery. Patient was transferred to emergency department for continued management. Was initially evaluated by the neurology service and determined patient was outside of window for surgical intervention, scheduled for carotid ultrasound, MRI and echo with bubble study inpatient. Patient ended up leaving AGAINST MEDICAL ADVICE, stating that he was tired of waiting around on July 17. Daughter does state that the patient did follow-up with primary care who started him on atorvastatin, aspirin and clopidogrel daily. She reports that the patient has not had any improvement in his confusion, cannot remember a lot of things. Patient denies any complaints at this time. He is ambulating around room without difficulty, states he is unsure why his family brought him here. He is able to answer orientation questions appropriately although does have some confusion throughout interview.. Review of Systems Constitutional symptoms: Negative except as documented in HPI. Skin symptoms: Negative except as documented in HPI. Eye symptoms: Negative except as documented in HPI. ENMT symptoms: Negative except as documented in HPI. Respiratory symptoms: Negative except as documented in HPI. Cardiovascular symptoms: Negative except as documented in HPI. Gastrointestinal symptoms: Negative except as documented in HPI. Genitourinary symptoms: Negative except as documented in HPI. Musculoskeletal symptoms: Negative except as documented in HPI. Neurologic symptoms: Negative except as documented in HPI. Health Status Allergies: Allergic Reactions (Selected) No Known Allergies. Past Medical/ Family/ Social History Surgical history: No active procedure history items have been selected or recorded.. Family history: No family history items have been selected or recorded.. Social history: Social & Psychosocial Habits No Data Available . Problem list: No qualifying data available . Physical Examination Vital Signs Vital Signs/Vital Measures 07/25/2020 14:14 EST Systolic Blood Pressure 152 mmHg HI Diastolic Blood Pressure 75 mmHg Mean Arterial Pressure (MAP)-BMDI 107 Temperature Source Rectal Heart Rate Monitored 46 bpm LOW Respiratory Rate 21 Breaths/Min HI Oxygen Saturation 98 % Oxygen Therapy Mode Room air 07/25/2020 12:02 EST Systolic Blood Pressure 155 mmHg HI Diastolic Blood Pressure 90 mmHg Temperature Source Oral Temperature Mode Fahrenheit Temperature, Fahrenheit 98.4 Deg F Clinical Temperature, C 36.9 Deg C Peripheral Pulse Rate 64 bpm Respiratory Rate 16 Breaths/Min Oxygen Saturation 99 % Oxygen Therapy Mode Room air . Measurements 07/25/2020 12:02 EST Height Source Stated Height Entry Format [place] Height/Length, [place] (ft) 6 ft Height/Length [place] 0 Inch CLINICALHEIGHT 182.88 cm [place] Body Weight 76.59 kg Weight Source, ED Standing scale Weight Entry Format [place] Weight Salvadorean lb 189.1 lb CLINICALWEIGHT 85.95 kg Body Surface Area (BSA) 2.08 m2 Body Mass Index 25.7 kg/m2 HI . Oxygen Saturation 07/25/2020 14:14 EST Oxygen Saturation 98 % 07/25/2020 12:02 EST Oxygen Saturation 99 % . General: Alert, no acute distress. Skin: Warm, dry. Head: Normocephalic. Ears, nose, mouth and throat: Oral mucosa moist. Cardiovascular: Regular rate and rhythm. Respiratory: Lungs are clear to auscultation, respirations are non-labored, breath sounds are equal. Gastrointestinal: Soft, Nontender, Non distended, Normal bowel sounds. Neurological: No focal neurological deficit observed, Level of consciousness: Confused, Cognitive function: To person, to place, to time, Motor strength: Equal bilaterally, Speech: Normal, Gait: Normal. Psychiatric: Cooperative, appropriate mood & affect. Medical Decision Making Differential Diagnosis: Confusion, cerebral vascular accident, urinary tract infection, pneumonia, electrolyte imbalance. Documents reviewed: Emergency department nurses' notes. Results review: Lab results : Lab Results 07/25/2020 13:59 EST Device Comment 1 07/25/2020 14:48 EST Urine Type. U CleanCatch Urine Color Yellow Urine Appearance Clear Urine Specific [place] 1.010 Urine pH Dipstick 6.0 Urine Leukocyte Esterase Negative Urine Nitrite Negative Urine Protein Dipstick Negative Urine Glucose Dipstick Negative Urine Ketones Dipstick Negative Urine Urobilinogen Dipstick 1.0 EU/dL Urine Bilirubin Dipstick Negative Urine Blood Dipstick Negative Ur RBC 0-2 /HPF 07/25/2020 14:00 EST Sodium Level 136 mmol/L Potassium Level 3.9 mmol/L Chloride Level 106 mmol/L Carbon Dioxide Level 27 mmol/L Anion Gap 7 LOW Glucose Level 93 mg/dL Blood Urea Nitrogen 13 mg/dL Creatinine Level 0.90 mg/dL eGFR >60 mL/min/1.73m2 eGFR NonAfrican >60 mL/min/1.73m2 Bun/Creatinine 14.4 Calcium Level 9.0 mg/dL WBC 10.8 K/uL HI RBC 4.94 Million/uL Hgb 15.8 g/dL Hct 47.2 % MCV 95.5 fL HI MCH 32.0 pg MCHC 33.5 Gram/dL Platelet Count 287 K/uL MPV 9.9 fL RDW 12.4 % Neut % 72.5 % HI Neut # 7.82 K/uL HI Lymph % 18.2 % LOW Lymph # 1.96 x10(3)/uL Stephenson % 7.0 % Stephenson # 0.76 K/uL Eos % 1.0 % Eos # 0.11 x10(3)/uL Baso % 0.7 % Baso # 0.08 x10(3)/uL Slide Review No IG# 0.06 x10(3)/uL HI IG% 0.60 % 07/25/2020 13:59 EST Glucose POC2 104 mg/dL . Radiology results: Radiology Results (Last 48 hours) [id number] -- 07/25/2020 11:51 CT Head WO (07/25/2020 14:41) Result: HEAD CT 07/25/2020 1:42 PM HISTORY: CVACOMPARISON: None.TECHNIQUE: Multiple axial CT images were performed from the foramenmagnum to the vertex. This study was performed with techniques to keepradiation doses as low as reasonably achievable, (ALARA). Individualizeddose reduction techniques using automated exposure control or adjustmentof mA and/or kV according to the patient size were employed.FINDINGS: The ventricles are normal in size. There is no evidence ofhemorrhage. No masses are identified. No extra-axial fluid is seen. Thesinuses are normal. There is asymmetric left periventricular deep whitematter change.IMPRESSION: Somewhat unusual asymmetric left periventricular whitematter change. This may be secondary to small vessel disease. MRIrecommended. Images reviewed, interpreted, and dictated by Herminio Borja MD . Impression and Plan Diagnosis CVA (cerebrovascular accident) - Discharge, Emergency medicine, Medical Left carotid artery occlusion - Discharge, Emergency medicine, Medical Altered mental state - Discharge, Emergency medicine, Medical Calls-Consults - 07/25/2020 15:36:00 , ENOC RANKIN MD-DEBBIE, Neurology, phone call, recommends will consult on patient . Plan Condition: Stable. Disposition: Admit Admit/Transfer/Discharge: Place in Observation (Order): Start: 07/25/2020 16:05 EST, Observation Reason: CVA, Unit type: Telemetry unit, Admitting: ELISEO STRATTON, -INT. Counseled: Patient, Regarding diagnosis, Regarding diagnostic results, Regarding treatment plan. Notes: I certify that the Physician Boiler/Chiller Operator performed the services as delegated. I agree with the assessment, treatment plan and disposition of the patient as recorded by the Physician Boiler/Chiller Operator. This document was created with [employer] dictation software and unidentified geospatial specialist errors may be present.. . documented in this encounter Plan of Treatment Not on file documented as of this encounter Visit Diagnoses Not on filedocumented in this encounter
--- OUTSIDE RECORDS SUMMARY | 2025-03-21 11:42 | XMS_ITS | Encounter Summary ---
Author Organization [employer] ([place], [place], [place], [place]) Address [address] [place] [address] Care Team Providers Care Brick Shader Name Role Phone Unavailable Primary Care Provider Unavailabl e Encounter Details Date Type Department Care Team (Late st Contact Info) Description 07/26/2020 Transcribed Document [facility] Family Medicine [address] [place] [address] ProviderNolan MD [address] [place] [address] Social History Tobacco Use Types Packs/Day Years Used Date Smoking Tobacco: Never Assessed Sex and Gender Information Value Date Recorded Sex Assigned at Not on file Legal Sex Male 7:15 PM CDT Gender Identity Not on file Sexual Orientation Not on file documented as of this encounter Miscellaneous Notes * Cerner Conversion Note - Historical ProviderMD - 07/26/2020 5:00 PM DIRECTOR OF STRATEGY & MOBILE Chart Check - Review Order Profile Entered On: 07/26/2020 16:47 EST Performed On: 07/26/2020 17:00 EST by HANSEL HERRERA RN Chart Check Powerplans Initiated/Discontinued as Appropriate : Not applicable All Active Orders Reviewed : Yes HANSEL HERRERA RN - 07/26/2020 16:47 EST Electronically signed by Tereso [facility] Conversion Measurement Department Chief Clerk Cerner at 11/12/2022 2:58 PM CDT documented in this encounter Plan of Treatment Not on file documented as of this encounter Visit Diagnoses Not on filedocumented in this encounter
--- OUTSIDE RECORDS SUMMARY | 2025-03-21 11:42 | XMS_ITS | Encounter Summary ---
Author Organization [employer] ([place], [place], [place], [place]) Address [address] [place] [address] Care Team Providers Care Ocean Lifeguard Name Role Phone Unavailable Primary Care Provider Unavailabl e Encounter Details Date Type Department Care Team (Late st Contact Info) Description 07/26/2020 Transcribed Document [facility] [place] [address] [place] [address] ProviderNolan MD [address] [place], [place] [id number] Social History Tobacco Use Types Packs/Day Years Used Date Smoking Tobacco: Never Assessed Sex and Gender Information Value Date Recorded Sex Assigned at Not on file Legal Sex Male 7:15 PM CDT Gender Identity Not on file Sexual Orientation Not on file documented as of this encounter Miscellaneous Notes * Cerner Conversion Note - Nolan Reardon MD - 07/26/2020 2:08 PM NEON GLASS BLOWER DATE OF CONSULTATION: 07/26/2020 NEUROLOGY CONSULT James Lebron is a 59-year-old white male with stroke risk factors of smoking, who was admitted to our hospital yesterday through the emergency room for further evaluation of a stroke. I have been asked to evaluate him for a stroke. The patient does have some degree of aphasia and is not a good historian. The following history is largely obtained from reviewing the records. The patient apparently was brought to our emergency room yesterday by his family for a stroke that occurred around July 16. Family told the emergency room staff yesterday that apparently the patient began acting confused on July 11 and by July 16 had decreased memory with some slurred speech. Apparently, at that time, he was taken to [facility], where he was found to have a stroke with 100% blockage of the left carotid artery. However, I do not know what study was done to show the 100% occlusion of the left carotid artery. The patient was then transferred to , but he left against medical advice. I do not know what testing he may have had at . Apparently since that time, the patient would see his primary care physician who started the patient on aspirin, Plavix, and a statin. Apparently, the family wanted him to have more workup, and he was brought to our emergency room yesterday and he was admitted. He still has some aphasia. He says he is still able to walk. MEDICATIONS: Here in the hospital include 1. Aspirin. 2. Lipitor. 3. Plavix. 4. Pepcid. Medications at home apparently before his stroke were none. ALLERGIES: None known. PAST MEDICAL HISTORY: 1. He smokes a pack per day of cigarettes. 2. He says he occasionally drinks alcohol. 3. No illicit drug use. 4. He has never had any surgeries. 5. Stroke-see above. SOCIAL HISTORY: The patient tells me he lives with his and daughter in [place]. He has one child. 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 He says he stopped driving after his stroke. He says he walks independently. FAMILY HISTORY: Both of his parents of cancer. REVIEW OF SYSTEMS: GENERAL: He denies any fevers. EYES: He denies any visual loss. EARS: He denies any hearing loss. CARDIAC: He denies any chest pain. RESPIRATORY: He denies any shortness of breath. GI: He denies any changes in his bowel habits. : He denies any changes in his urinary habits. SKIN: He denies any rashes. MUSCULAR: He denies any muscle aches. NEUROLOGIC: He denies any headaches. PSYCHIATRIC: He denies any depression. ENDOCRINE: He denies any diabetes. HEMATOLOGIC: He denies any history of blood transfusions. PHYSICAL EXAMINATION: GENERAL: He is a well-developed male, in no acute distress, resting comfortably in bed. VITAL SIGNS: His blood pressure is 133/73, pulse is 57, and respirations are 18. HEART: Regular rate and rhythm. LUNGS: Clear. NECK: Supple without any bruits. EYES: Ophthalmologic exam was done. His pupils react equally to light, but I could not see his disc. NEUROLOGIC: Motor exam shows 5/5 strength in both arms and legs. His tone in both arms and legs is normal. He is alert and oriented x3. He has good recent and remote recall. His attention span and concentration are normal. Language skills show that he does have occasional word-finding difficulty and sometimes will make paraphasic errors. His cranial nerves II through XII are intact. Coordination shows intact [id number] bilaterally. DIAGNOSTIC STUDIES: LABORATORY RESULTS: We have none of the records from [facility] or . The patient's electrolytes are within normal limits. His CBC with diff is within normal limits. An INR is 1.1. A urinalysis is unremarkable. Alcohol level is less than 3. Cholesterol is 102, LDL is 54. IMAGING STUDIES: The patient did have an MRI of his brain at our hospital today that shows multiple areas of acute ischemia in the left cerebral hemisphere. I have looked at this film and there are multiple punctate areas of acute ischemia in the left internal carotid artery territory. These are relatively small. The patient had a chest x-ray that shows bronchial thickening with increased markings. ASSESSMENT: James Lebron is a 59-year-old male who by report around July 16 developed problems speaking. He was found to have a stroke at [facility], but he declined treatment and/or workup apparently. Apparently, he may have been found to have 100% occluded left carotid artery, but we do not have these records. An MRI of the brain here does confirm a left hemisphere stroke that could be consistent with left carotid artery disease. At this time, I would recommend the followin. I agree with anti-platelet agents. 2. I agree with a statin and we could even consider high-dose statins. 3. I am requesting records from both and [facility] to see what tests they have done and then determinations can be made as to what tests we should do here. 4. Follow up on a COVID test that was supposedly sent here. 5. Sequential compression devices for deep vein thrombosis prevention. 6. N.p.o. until he passes a swallowing study or modified Lynn. 7. I am initiating the stroke order sets. 8. At discharge, he should follow up with an outpatient neurologist and not drive until released by physician. 9. If his heart monitor were to show atrial fibrillation, we should consider anticoagulating the patient. Of note, I have spent over 80 minutes on this case today. Over half of that time was spent counseling the patient and reviewing records. /[id number] MD ABRAM Rodriguez/MONICA / ABRAM / KATY /[id number] Electronically signed by Interface, [facility] Conversion Finishing Room Supervisor Cerner at 11/12/2022 2:49 PM CDT documented in this encounter Plan of Treatment Not on file documented as of this encounter Visit Diagnoses Not on filedocumented in this encounter
--- OUTSIDE RECORDS SUMMARY | 2025-03-21 11:42 | XMS_ITS | Encounter Summary ---
Author Organization [employer] ([place], [place], [place], [place]) Address [address] [place] [address] Care Team Providers Care Assistant Brand Manager Name Role Phone Unavailable Primary Care Provider Unavailabl e Encounter Details Date Type Department Care Team (Late st Contact Info) Description 07/26/2020 Transcribed Document [facility] [place] [address] [place] [address] ProviderNolan MD [address] [place] [address] Social History Tobacco Use Types Packs/Day Years Used Date Smoking Tobacco: Never Assessed Sex and Gender Information Value Date Recorded Sex Assigned at Not on file Legal Sex Male 7:15 PM CDT Gender Identity Not on file Sexual Orientation Not on file documented as of this encounter Miscellaneous Notes * Cerner Conversion Note - Historical ProviderMD - 07/26/2020 3:59 PM MANAGER BIOLOGICS Patient: JAMES LEBRON Age: 59 Years Sex: Male : 1960 Subjective Date of Service: 07/26/2020 seen and examined, has intermittent confusion no distress, I want to go home we discussed MRI findings no family bedside Vital Signs T: 36.5 ??C TMIN: 36.3 ??C TMAX: 36.8 ??C HR: 46(Monitored) RR: 18 BP: 131/73 SpO2: 97% HT: 182.88 cm WT: 85.95 kg BMI: 25.7 Oxygen Settings (Last) Oxygen Therapy Mode: Room air (07/26/20 05:45:00) Intake & Output Totals Last 24 Hours (7a-7a) Input Total: 1010 mL Output Total: 0 mL Balance: 1010 mL Physical Exam General: Alert and oriented, slow to answer, confused about medical history/recent events, well nourished, no acute distress, states it is 2020, kaur is president we just celebrated Lexie and he is in [place] Neurologic: Moves all 4 extremities spontaneously, oriented X3, no focal deficits appreciated, does seem to lose track of his answers Eye: normal conjunctiva HENT: Normocephalic, normal hearing, moist oral mucosa Neck: no jvd Lungs: Clear to auscultation, non-labored respiration, no crackles, no wheeze Heart: Normal rate, regular rhythm, no murmur Abdomen: Soft, non-tender, non-distended, normal bowel sounds Musculoskeletal: No obvious deformity, no tenderness Skin: warm, dry and pink, no rashes or lesions Psychiatric: Cooperative Assessment/Plan CVA, Left Cerebral hemisphere -request records from [facility], asked tech -MRI noted, obtain records to see if echo with bubble done -reported 100% left carotid occlusion per report-await records.p -neuro consult -continue asa, plavix and statin -A1C (6), lipid (low HLD) panel, TSH WNL -monitor on tele : sinus bradycardia, asymptomatic Labile BP -Treat PRN -trend Ectasia of aorta with plaque -needs PCP follow up Tobacco use -Encourage cessation -nicotine patch prn Alcohol use -says hasn't drank in 3 weeks -monitor for signs of withdrawal, CIWA moderate pcm -mine engineering supervisor consult time spent: 25 mins covid intake pending. will call family tomorrow once I have more records. Pt needs work with PT Dispo: obtain records, neuro recs VTE Prophylaxis - Medical Clopidogrel 75 mg, Oral, Tab, Daily, Routine, Start 07/26/20 9:00:00 EST, 07/26/20 8:15:00 EST (DELON BAZZI PA-C) Sequential Compression Device Start: 07/26/20 13:43:00 EST, Bilateral, Continuous Order (ENOC RANKIN) Medications aspirin, 81 mg= 1 Tab, Oral, Daily Dulcolax Laxative, 5 mg= 1 Tab, Oral, Daily, PRN DuoNeb 0.5 mg-2.5 mg/3 mL inhalation solution, 3 mL, Nebulized Inhalation , RT_Q6H, PRN hydrALAZINE, 10 mg= 0.5 mL, IV Push, [...] mL, IV Push, Q4H, PRN Diagnostic Results FINDINGS: Limited images of the proximal cord [...] acute ischemia in the left cerebral hemisphere. [1] Lab Results Test Name Test Result Date/Time Sodium Level 140 mmol/L 07/26/2020 03:23 EST Potassium Level 3.7 mmol/L 07/26/2020 03:23 EST Chloride Level 108 mmol/L 07/26/2020 03:23 EST Carbon Dioxide Level 27 mmol/L 07/26/2020 03:23 EST Anion Gap 9 07/26/2020 03:23 EST Glucose Level 96 mg/dL 07/26/2020 03:23 EST Blood Urea Nitrogen 12 mg/dL 07/26/2020 03:23 EST Creatinine Level 0.90 mg/dL 07/26/2020 03:23 EST eGFR >60 mL/min/1.73m2 07/26/2020 03:23 EST eGFR NonAfrican >60 mL/min/1.73m2 07/26/2020 03:23 EST Bun/Creatinine 13.3 07/26/2020 03:23 EST Calcium Level 8.9 mg/dL 07/26/2020 03:23 EST Protein Total 6.3 Gram/dL (Low) 07/26/2020 03:23 EST Albumin Level 2.9 Gram/dL (Low) 07/26/2020 03:23 EST Globulin 3.4 Gram/dL 07/26/2020 03:23 EST A/G Ratio 0.9 (Low) 07/26/2020 03:23 EST Bilirubin Total 0.5 mg/dL 07/26/2020 03:23 EST Alk Phos 72 Units/Liter 07/26/2020 03:23 EST AST 9 Units/Liter 07/26/2020 03:23 EST ALT 13 Units/Liter (Low) 07/26/2020 03:23 EST Magnesium Level 2.1 mg/dL 07/26/2020 03:23 EST Hgb A1C 6.0 % 07/26/2020 03:23 EST eAVG Glucose 126 mg/dL 07/26/2020 03:23 EST WBC 9.0 K/uL 07/26/2020 03:23 EST RBC 4.53 Million/uL 07/26/2020 03:23 EST Hgb 14.5 g/dL 07/26/2020 03:23 EST Hct 42.6 % 07/26/2020 03:23 EST MCV 94.0 fL 07/26/2020 03:23 EST MCH 32.0 pg 07/26/2020 03:23 EST MCHC 34.0 Gram/dL 07/26/2020 03:23 EST Platelet Count 274 K/uL 07/26/2020 03:23 EST MPV 9.7 fL 07/26/2020 03:23 EST RDW 12.4 % 07/26/2020 03:23 EST Neut % 58.6 % 07/26/2020 03:23 EST Neut # 5.28 K/uL 07/26/2020 03:23 EST Lymph % 29.1 % 07/26/2020 03:23 EST Lymph # 2.63 x10(3)/uL 07/26/2020 03:23 EST [place] % 8.6 % 07/26/2020 03:23 EST [place] # 0.78 K/uL 07/26/2020 03:23 EST Eos % 2.4 % 07/26/2020 03:23 EST Eos # 0.22 x10(3)/uL 07/26/2020 03:23 EST Baso % 1.0 % 07/26/2020 03:23 EST Baso # 0.09 x10(3)/uL 07/26/2020 03:23 EST Slide Review No 07/26/2020 03:23 EST IG# 0.03 x10(3)/uL 07/26/2020 03:23 EST IG% 0.30 % 07/26/2020 03:23 EST PT 11.1 Second(s) 07/26/2020 03:23 EST INR 1.1 07/26/2020 03:23 EST Cholesterol Tot 102 mg/dL 07/26/2020 03:23 EST Triglyceride 64 mg/dL 07/26/2020 03:23 EST Cholesterol HDL 35.0 mg/dL 07/26/2020 03:23 EST Cholesterol LDL Calculation 54.2 mg/dL 07/26/2020 03:23 EST Cholesterol/HDL Ratio 2.9 07/26/2020 03:23 EST LDL/HDL Ratio 1.6 07/26/2020 03:23 EST Cholesterol VLDL Calculation 12.8 mg/dL 07/26/2020 03:23 EST TSH 1.450 mcInt Units/mL 07/26/2020 03:23 EST Alcohol <3 mg/dL 07/25/2020 22:49 EST %Alcohol <0.00 07/25/2020 22:49 EST [1] MRI Brain WO; LUIS PALMER 07/26/2020 10:21 EST documented in this encounter Plan of Treatment Not on file documented as of this encounter Visit Diagnoses Not on filedocumented in this encounter
--- OUTSIDE RECORDS SUMMARY | 2025-03-21 11:42 | XMS_ITS | Encounter Summary ---
Author Organization [employer] ([place], [place], [place], [place]) Address [address] [place] [address] Care Team Providers Care Able Seaman Name Role Phone Unavailable Primary Care Provider Unavailabl e Encounter Details Date Type Department Care Team (Late st Contact Info) Description 07/26/2020 Transcribed Document [facility] [place] Family Medicine [address] [place] [address] ProviderNolan MD [address] [place] [address] Social History Tobacco Use Types Packs/Day Years Used Date Smoking Tobacco: Never Assessed Sex and Gender Information Value Date Recorded Sex Assigned at Not on file Legal Sex Male 7:15 PM CDT Gender Identity Not on file Sexual Orientation Not on file documented as of this encounter Miscellaneous Notes * Cerner Conversion Note - Nolan ProviderMD - 07/26/2020 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 NIH Stroke Scale *Q Entered On: 07/26/2020 14:04 EST Performed On: 07/26/2020 13:49 EST by HANSEL HERRERA RN NIH Stroke Scale *Q NIH Level of Consciousness (1A) : Alert NIH LOC Questions (1B) : Answers one question correctly NIH LOC Commands (1C) : Performs both tasks correctly NIH Best Gaze (2) : Normal NIH Visual (3) : No visual loss NIH Facial Palsy (4) : Normal symmetrical movements NIH Motor Arm, Left (5A) : No drift NIH Motor Arm, Right (5B) : No drift NIH Motor Leg, Left (6A) : No drift NIH Motor Leg, Right (6B) : No drift NIH Limb Ataxia (7) : Absent NIH Sensory (8) : Normal NIH Best Language (9) : No aphasia NIH Dysarthria (10) : Normal Extinction and Inattention (11) : No abnormality NIH Scale Score : 1 HANSEL HERRERA RN - 07/26/2020 13:58 EST Electronically signed by Tereso, [facility] Conversion Burr Bench Operator Cerner at 11/12/2022 2:58 PM CDT documented in this encounter Plan of Treatment Not on file documented as of this encounter Visit Diagnoses Not on filedocumented in this encounter
--- OUTSIDE RECORDS SUMMARY | 2025-03-21 11:42 | XMS_ITS | Encounter Summary ---
Author Organization [email or web address] ([place], [place], [place], [place]) Address [address] [place] [address] Care Team Providers Care Grade Foreman Name Role Phone Unavailable Primary Care Provider Unavailabl e Encounter Details Date Type Department Care Team (Late st Contact Info) Description 07/26/2020 Transcribed Document [facility] [place] Family Medicine [address] [place] [address] ProviderNolan MD [address] [place] [address] Social History Tobacco Use Types Packs/Day Years Used Date Smoking Tobacco: Never Assessed Sex and Gender Information Value Date Recorded Sex Assigned at Not on file Legal Sex Male 7:15 PM CDT Gender Identity Not on file Sexual Orientation Not on file documented as of this encounter Miscellaneous Notes * Cerner Conversion Note - Nolan ProviderMD - 07/26/2020 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 ENOC RANKIN MD-NEU - 07/26/2020 13:45 EST Electronically signed by Tereso [facility] Conversion Acid Mixer Cerner at 11/12/2022 2:47 PM CDT documented in this encounter Plan of Treatment Not on file documented as of this encounter Visit Diagnoses Not on filedocumented in this encounter
--- NOTE | 2025-03-21 12:04 | CT_ITS ---
PROCEDURE INFORMATION: Exam: CT Abdomen And Pelvis With Contrast Exam date and time: 03/21/2025 12:47 PM Age: 64 years old Clinical indication: Abdominal pain; Additional info: Left flank pain TECHNIQUE: Imaging protocol: Computed tomography of the abdomen and pelvis with contrast. 3D rendering (Not supervised by radiologist): MIP and/or 3D reconstructed images were created by the technologist. Radiation optimization: All CT scans at this facility use at least one of these dose optimization techniques: automated exposure control; mA and/or kV adjustment per patient size (includes targeted exams where dose is matched to clinical indication); or iterative reconstruction. Contrast material: ISOVUE; Contrast volume: 80 ml; Contrast route: IV; COMPARISON: CT ANGIO CHEST PE PROTOCOL 03/21/2025 12:47 PM FINDINGS: Coronary arteries: Coronary artery calcifications are noted. Liver: Normal. No mass. Gallbladder and biliary ducts: Normal. No calcified stones. No ductal dilation. Pancreas: Normal. No ductal dilation. Spleen: Normal. No splenomegaly. Adrenal glands: Normal. No mass. Kidneys and ureters: Normal. No hydronephrosis. Stomach and bowel: Mild diverticulosis is seen involving the sigmoid colon. Appendix: No evidence of appendicitis. Intraperitoneal space: Moderate free fluid is seen in the pelvis. No evidence of free air in the abdomen. Vasculature: Mild atherosclerotic calcifications affect the aorta and its branches. Lymph nodes: Moderately enlarged ginger hepatis lymph nodes are seen the largest measuring 1.9 cm. Mildly enlarged mesenteric lymph nodes are seen the largest measuring 1.1 cm. Prominent retroperitoneal adenopathy. Urinary bladder: Mild thickening of the urinary bladder wall is likely due to underdistention. Cystitis is not excluded. Reproductive: Unremarkable as visualized. Bones/joints: Moderate degenerative changes affect the spine. Soft tissues: Unremarkable. IMPRESSION: 1. Moderately enlarged ginger hepatis and mesenteric lymph nodes are likely reactive or metastatic. Prominent retroperitoneal adenopathy which can be seen with testicular cancer. 2. Mild thickening of the urinary bladder wall is likely due to underdistention. Cystitis is not excluded. 3. Moderate free fluid in the pelvis.
--- NOTE | 2025-03-21 12:04 | CT_ITS ---
PROCEDURE INFORMATION: Exam: CTA Chest With Contrast Exam date and time: 03/21/2025 12:47 PM Age: 64 years old Clinical indication: Pain; Chest pressure; Additional info: Inspiratory left cp TECHNIQUE: Imaging protocol: Computed tomographic angiography of the chest with contrast. Exam focused on the arteries. 3D rendering (Not supervised by radiologist): MIP and/or 3D reconstructed images were created by the technologist. Radiation optimization: All CT scans at this facility use at least one of these dose optimization techniques: automated exposure control; mA and/or kV adjustment per patient size (includes targeted exams where dose is matched to clinical indication); or iterative reconstruction. Contrast material: ISOVUE; Contrast volume: 80 ml; Contrast route: INTRAVENOUS (IV); COMPARISON: CR XR CHEST PORTABLE 07/16/2020 6:49 PM FINDINGS: Pulmonary arteries: The main pulmonary artery at the level of the right pulmonary artery measures 2.9 cm. No evidence of acute pulmonary embolism upto the subsegmental level. Aorta: The ascending aorta at the level of the right pulmonary artery measures 3 cm. Mild atherosclerotic calcifications affect the aorta and its branches. Lungs: Mild patchy opacities in both lungs likely represent atelectasis or infection. Nodule measuring 6 mm is seen in the right upper lobe. Nodule measuring 3 mm is seen in the right anterior lung base. Pleural spaces: Unremarkable. No pneumothorax. No pleural effusion. Heart: Unremarkable. No cardiomegaly. No pericardial effusion. Coronary arteries: Coronary artery calcifications are noted. Lymph nodes: Unremarkable. No enlarged lymph nodes. Bones/joints: Unremarkable. No acute fracture. Soft tissues: Unremarkable. IMPRESSION: 1. No evidence of acute pulmonary embolism upto the subsegmental level. 2. Mild patchy opacities in both lung bases likely represent atelectasis or infection. 3. Nodule measuring 6 mm in the right upper lobe. Nodule measuring 3 mm in the right anterior lung base. For patients at low risk (minimal or absent history of smoking and of other known risk factors), recommend CT Chest at 3-6 months, then consider CT Chest at 18-24 months. For patients at high risk (history of smoking or of other known risk factors), recommend CT Chest at 3-6 months, then CT Chest at 18-24 months. (Reference: Korin) REFERENCES: Korin Parks et al. Guidelines for Management of Incidental Pulmonary Nodules Detected on CT Images: From the Fleischner Society 2017. Radiology. 2017;284(1):228-243.
[2025-03-21 12:12] LABS: Hematocrit 39.1 % (42.0-52.0); Hemoglobin 13.1 g/dL (14.1-18.0); Immature Granulocytes % 0.3 %; Mean Corpuscular HGB Conc 33.5 g/dL (31.8-35.4); Mean Corpuscular Hemoglobin 32.5 pg (27.0-31.2); Mean Corpuscular Volume 97.0 fl (80-94); Nucleated Red Blood Cells % 0 %; Platelet Count 258 K/mm3 (142-424); Red Blood Count 4.03 M/mm3 (4.60-6.20); Red Cell Distribution Width-SD 54.0 fL; White Blood Count 9.3 K/mm3 (4.8-10.8)
[2025-03-21 12:14] LABS: Bilirubin,Urine Negative (Negative); Color,Urine YELLOW (Yellow); Glucose,Urine (UA) Negative (Negative); Ketones,Urine Negative (Negative); Leukocyte Esterase,Urine NEGATIVE (Negative); PH,Urine 8.5 (5.0-8.5); Protein,Urine NEGATIVE (Negative); Specific Gravity, Urine 1.020 (1.005-1.030); Urobilinogen,Urine 0.2 EU/dl (0.2)
--- NOTE | 2025-03-21 12:15 | ECG_ITS ---
APPROVED REPORT Exam: Resting ECG HR:51 bpm ECG Measurements Heart Rate 51 AXES MD 178 P 50 QRSd 93 QRS 46 QT 428 T 4 QTc 404 Conclusion Sinus bradycardia no ST elevation ST depression or T wave inversions concerning for ischemia normal axis Electronically signed by : Tamia Browne, 03/21/2025 16:20:44
[2025-03-21 12:24] LABS: Albumin Level 3.3 g/dl (3.5-5.0); Chloride 109 mmol/L (98-107); Potassium 4.3 mmoL/L (3.5-5.1); Sodium 139 mmol/L (136-145)
[2025-03-21 12:27] LABS: Alanine Aminotransferase 15 U/L (12-78); Albumin/Globulin Ratio 0.9 (1.1-1.8); Alkaline Phosphatase 81 U/L (38-126); Anion Gap 6.3 mEq/L (5-15); Aspartate Amino Transferase 27 U/L (17-59); Bilirubin,Total 0.4 mg/dl (0.2-1.3); Blood Urea Nitrogen 11 mg/dl (9-20); Carbon Dioxide 28 mmol/L (22.0-30.0); Creatinine Clearance Estimated 89 mL/min (50-200); Creatinine,Serum 0.80 mg/dl (0.66-1.25); Estimated Glomerular Filt Rate 97 ml/min (>60); GFR (African American) 117 ML/MIN (>60); Globulin 3.6 g/dL (1.3-3.2); Lipase 48 U/L (23-300); Total Protein,Serum 6.9 g/dl (6.3-8.2)
[2025-03-21 12:28] LABS: Calcium 8.7 mg/dl (8.4-10.2); Glucose 97 mg/dl (74-100)
[2025-03-21 12:31] LABS: Lactate Venous 1.2 mmol/L (0.4-2.0)
[2025-03-21 12:37] LABS: NT Pro Brain Natriuretic Pep. 790 pg/mL (0-125)
[2025-03-21 12:45] LABS: Troponin I < 0.01 ng/ml (0.00-0.034)
[2025-03-21] MEDS: 0.9 % SODIUM CHLORIDE 50 ML VIAL IV (12:49)
[2025-03-21] MEDS: IOPAMIDOL-370 (76%);100ML BOTTLE 80 ML IV (12:49)
[2025-03-21] MEDS: SODIUM CHLORIDE 0.9% 10ML SYR (RAD ONLY) 10 ML IV (12:49)
== END 2025-03-21 15:19 | disposition home or self-care (01) ==
PROVIDERS: Emergency Provider Student in an Organized Health Care Education/Training Program; PCP Internal Medicine
DX: R10.12 Left upper quadrant pain (principal); R00.1 Bradycardia, unspecified; F17.210 Nicotine dependence, cigarettes, uncomplicated
CPT/HCPCS: 71275; 74177; 80053; 81003; 83605; 83690; 83880; 84484; 85025; 93005; 99284; 99285; Q9967

== ENCOUNTER 2025-06-08 08:47 | Day surgery (SDC) | payer MEDICARE, OTHER, SELFPAY ==
[2025-06-02 13:53] VITALS: BMI 23.8
[2025-06-08] MEDS: CYCLOPENTOLATE 2% OPHTH SOLN 2ML BOTTLE OP ×3 (09:55→10:05)
[2025-06-08] MEDS: TETRACAINE 0.5% OPTH SOL 15ML OP ×3 (09:55→10:05)
[2025-06-08] MEDS: PHENYLEPHRINE 2.5% OPHTH SOLN 2ML OP ×3 (09:55→10:05)
[2025-06-08 09:56] VITALS: BP 122/77; PULSE 84; RESP 17; TEMP 36.2; O2SAT 96
[2025-06-08] MEDS: MIDAZOLAM 2MG/2ML VIAL 1 MG IV (10:58)
[2025-06-08 11:10] VITALS: BP 115/64; PULSE 80; RESP 18; O2SAT 95
--- NOTE | 2025-06-08 12:20 | P.PCN_ITS ---
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 The patient reports that this interferes with ADLs such as reading, watching TV and/or driving or the vision is like looking through a foggy haze and is very troubling. The patient was examined and found to have a visually significant cataract with best corrected vision of [20/400] by refraction and/or glare testing. Treatment options, risks and benefits were explained and the patient elected to have cataract surgery in an attempt to improve their vision. The patient had the eye anesthetized with topical tetracaine, the eye ways prepped. The patient is a terminal cancer patient. Reported he was in intense pain That worsened 3 days ago. He had taken his methadone this morning but wasn't controlled. Unable to tolerate the prone position required for cataract surgery. Case cancelled till he can get better pain control
== END 2025-06-08 11:20 | disposition home or self-care (01) ==
PROVIDERS: PCP Internal Medicine; Visit Provider Ophthalmology
DX: H25.813 Combined forms of age-related cataract, bilateral (principal); F17.200 Nicotine dependence, unspecified, uncomplicated; C80.1 Malignant (primary) neoplasm, unspecified; Z86.73 Personal history of transient ischemic attack (TIA), and cerebral infarction without residual deficits
CPT/HCPCS: 66984; J2250